=== PATIENT | male | born 1945 | race African-American/Black ===

== ENCOUNTER 2017-07-12 15:31 | Inpatient (IN) | payer MEDICARE, MEDICAID ==
[~2017-07-12] VITALS: Ht 172.7 cm; Wt 85.2 kg
[2017-07-12] MEDS ORDERED: SODIUM CHLOR 0.9% 1000 ML INJ 1,000 ML IV PRN (19:05)
[2017-07-12] MEDS ORDERED: SODIUM CHLOR 0.9% 1000 ML INJ 1,000 ML OTHER PRN ×2 (19:05)
[2017-07-12] MEDS ORDERED: MANNITOL 12.5 GM/50 ML VIAL IV PRN (19:15)
[2017-07-12] MEDS ORDERED: GELATIN 12 MM/7 MM FOAM TOP PRN (19:15)
[2017-07-12] MEDS ORDERED: HEPARIN SODIUM - IV 10,000 UNITS/10 ML VIAL IV FLUSH PRN (19:15)
[2017-07-12] MEDS ORDERED: NITROGLYCERIN 0.4 MG SL 25 TABS/BTL SL PRN (19:15)
[2017-07-12] MEDS ORDERED: ONDANSETRON HCL 4 MG/2 ML VIAL IV PUSH PRN (19:15)
[2017-07-12] MEDS ORDERED: cloNIDine HCL 0.1 MG TAB PO PRN (19:15)
[2017-07-12] MEDS ORDERED: SODIUM CHLORIDE 0.9% FLUSH 10 ML FLUSH IV FLUSH PRN (19:15)
[2017-07-12] MEDS ORDERED: MAGNESIUM HYDROXIDE SUSP 30 ML CUP PO PRN (20:00)
[2017-07-12] MEDS ORDERED: ALUMINUM/MAGNESIUM/SIMETH 30 ML CUP PO PRN (20:00)
[2017-07-12] MEDS ORDERED: REMOVE OLD NICOTINE PATCH T-DERMAL PRN (21:00)
[2017-07-12] MEDS: diphenhydrAMINE HCL 25 MG CAP PO PRN (23:25)
[2017-07-13] MEDS: RESP: ALBUTEROL 2.5 MG/IPRATROPIUM 0.5 MG NEB (PRN) NEB (00:18)
[2017-07-13] MEDS: ACETAMINOPHEN 325 MG TAB PO PRN (00:48)
[2017-07-13 06:26] VITALS: BP 144/82; PULSE 113; RESP 18; TEMP 97.7; O2SAT 88
[2017-07-13] MEDS ORDERED: NICOTINE 21 MG/24 HR PATCH T-DERMAL PRN (09:00)
[2017-07-13 09:59] LABS: BICARBONATE 21.1 MEQ/L (21.0-32.0); BLOOD UREA NITROGEN 68 MG/DL (7-18); CALCIUM 9.5 MG/DL (8.5-10.1); CHLORIDE 95 MEQ/L (98-107); GLOMERULAR FILTRATION RATE 6 ML/MIN (>89); GLUCOSE,RANDOM 119 MG/DL (74-106); SODIUM (NA) 132 MEQ/L (136-145)
[2017-07-13 10:00] LABS: CHOLESTEROL 67 MG/DL (120-200); TRIGLYCERIDES 50 MG/DL (42-150)
[2017-07-13 10:03] LABS: HDL CHOLESTEROL 31.8 MG/DL (40.0-60.0); LDL CHOLESTEROL 25 MG/DL (0-99)
[2017-07-13 10:38] LABS: CREATININE 10.37 MG/DL (0.60-1.30)
--- NOTE | 2017-07-13 10:50 | PD.CONS ---
HPI Service Nephrology Consult Requested By Dr. Barney Reason for Consult ESRD Primary Care Physician Unknown History of Present Illness Patient is a 71-year-old male with history of end-stage renal disease, hypertension, atrial fibrillation who had been admitted to psychiatry ros[facility] as he was noncompliant and did not wish to continue dialysis, missed his dialysis yesterday, he will be directed and transferred to [facility], patient used to follow with Dr. Hewitt. His hemodialysis is on Saturday, Saturday and Saturday. Review of Systems Constitutional: COMPLAINS OF: Fatigue Neurologic: COMPLAINS OF: Abnormal gait Psychiatric: COMPLAINS OF: Anxiety, Confusion, Mood changes, Depression, Agitation, Suicidal Ideation Past Family Social History Allergies: Coded Allergies: No Known Allergies (Verified Allergy, Unknown, 07/12/17) Past Medical History End-stage renal disease Bipolar disorder Hypertension Atrial fibrillation Noncompliance with dialysis COPD Past Surgical History AV fistula Active Ordered Medications Current Medications Medications (Trade) Dose Ordered Sig/Leandro Route Start Time Stop Time Status Last Admin Sodium Chloride 1,000 ml @ 0 mls/hr Q0M PRN OTHER 07/12/17 19:05 (Heparin Inj) 8,000 units UNSCH PRN IV FLUSH 07/12/17 19:15 Sodium Chloride 1,000 ml @ 200 mls/hr Q5H PRN IV 07/12/17 19:05 Sodium Chloride 1,000 ml @ 0 mls/hr Q0M PRN OTHER 07/12/17 19:05 (Mannitol Inj) 12.5 gm UNSCH PRN IV 07/12/17 19:15 (NS Flush) 5 ml UNSCH PRN IV FLUSH 07/12/17 19:15 (Heparin Inj) UNSCH PRN .XX 07/12/17 19:15 07/13/17 11:10 (Gentamicin Inj) 20 mg UNSCH PRN OTHER 07/12/17 19:15 07/13/17 11:10 (Zofran Inj) 4 mg UNSCH PRN IV PUSH 07/12/17 19:15 07/13/17 11:10 (Benadryl) 25 mg UNSCH PRN PO 07/12/17 19:15 07/13/17 11:10 (Nitrostat Sl) 0.4 mg UNSCH PRN SL 07/12/17 19:15 (Catapres) 0.1 mg UNSCH PRN PO 07/12/17 19:15 (Epogen Inj) 4,000 units UNSCH PRN IV PUSH 07/12/17 19:15 07/13/17 11:10 (Gelfoam 12 Mm/7 Mm Top) 1 foam UNSCH PRN TOP 07/12/17 19:15 (Tylenol) 650 mg Q4H PRN PO 07/12/17 20:00 07/13/17 00:48 (Milk Of Magnesia Liq) 30 ml DAILY PRN PO 07/12/17 20:00 (Mag-Al Plus Susp Liq) 30 ml Q6H PRN PO 07/12/17 20:00 (Habitrol 21 Mg Patch.24 Hr) 1 patch DAILY PRN T-DERMAL 07/13/17 09:00 Miscellaneous Information 1 HS PRN T-DERMAL 07/12/17 21:00 (Duoneb Neb) 1 ampule Q4HR NEB PRN NEB 07/12/17 23:45 07/13/17 00:18 Family History Noncontributory Social History Previous history of smoke Physical Exam Vital Signs Vital Signs Date Time Temp Pulse Resp B/P (MAP) Pulse Ox O2 Delivery O2 Flow Rate FiO2 07/13/17 06:26 97.7 113 18 144/82 (102) 88 Physical Exam GENERAL: Well-nourished, well-developed patient. SKIN: Warm and dry. HEAD: Normocephalic. EYES: No scleral icterus. No injection or drainage. NECK: Supple, trachea midline. No JVD or lymphadenopathy. CARDIOVASCULAR: Regular rate and rhythm without murmurs, gallops, or rubs. RESPIRATORY: Breath sounds equal bilaterally. No accessory muscle use. GASTROINTESTINAL: Abdomen soft, non-tender, nondistended. EXTREMITIES: No cyanosis, or edema. NEUROLOGICAL: Awake, patient has disorientated Laboratory Laboratory Tests Test 07/12/17 21:10 07/13/17 08:40 Hepatitis A IgM Antibody NONREACTIVE Hepatitis B Surface Antigen NONREACTIVE Hepatitis B Core IgM Antibody NONREACTIVE Hepatitis C IgG Antibody NONREACTIVE Blood Urea Nitrogen 68 Creatinine 10.37 Random Glucose 119 Calcium Level 9.5 Sodium Level 132 Potassium Level 5.7 Chloride Level 95 Carbon Dioxide Level 21.1 Anion Gap 16 Estimat Glomerular Filtration Rate 6 Triglycerides Level 50 Cholesterol Level 67 LDL Cholesterol 25 HDL Cholesterol 31.8 Cholesterol/HDL Ratio 2.10 Result Diagram: 07/13/17 0840 Assessment and Plan Problem List: (1) ESRD (end stage renal disease) on dialysis ICD Codes: N18.6 - End stage renal disease; Z99.2 - Dependence on renal dialysis Plan: Patient missed dialysis yesterday, thinking of stopping it, has Bipolar disorder, seen during dialysis HD progress noted 2 L off (2) Hypertension ICD Codes: I10 - Essential (primary) hypertension Plan: Continue to monitor (3) Adjustment disorder with depressed mood ICD Codes: F43.21 - Adjustment disorder with depressed mood Plan: Psychiatry is following Nic Pinto MD Jul 13, 2017 10:50
[2017-07-13] MEDS: HEPARIN SODIUM - IV 10,000 UNITS/10 ML VIAL PRN (11:10)
[2017-07-13] MEDS: GENTAMICIN SULFATE 20 MG/2 ML VIAL OTHER PRN (11:10)
[2017-07-13] MEDS: EPOETIN ALFA 10,000 UNITS/ML VIAL IV PUSH PRN (11:10)
[2017-07-13] MEDS: diphenhydrAMINE HCL 25 MG CAP PO PRN ×2 (11:10→20:27)
[2017-07-13] MEDS ORDERED: SEVEL800 PO ×2 (14:49→15:40)
--- NOTE | 2017-07-13 14:52 | HHI.HP ---
Provisional Diagnosis Admission Date Jul 12, 2017 at 17:41 [place] I. Adjustment disorder with depressed mood Certification of Person's Competence To Provide Express and Informed Consent I have personally examined Antoni Lagos , a person being served at [facility] on, Jul 13, 2017 14:44. Express and informed consent means consent voluntarily given in writing, by a competent person, after sufficient explanation and disclosure of the subject matter involved to enable the person to make a knowing and willful decision without any element of force, fraud, deceit, duress, or other form of constraint or coercion. This person is 18 years of age or older, is not now known to be incompetent to consent to treatment with a guardian advocate, and does not have a health care surrogate or proxy currently making medical treatment decisions. I have found this person to be one of the following: [xxx] Competent to provide express and informed consent, as defined above, for voluntary admission to this facility and is competent to provide express and informed consent for treatment. He/she has the consistent capacity to make well reasoned, willful, and knowing decisions concerning his or her medical or mental health treatment. The person fully and consistently understands the purpose of the admission for examination/placement and is fully capable of personally exercising all rights assured under [place] Incompetent to provide express and informed consent to voluntary admission, and this is incompetent to provide express and informed consent to treatment. The person must be transferred to involuntary status and a petition for a guardian advocate filed with the Circuit Court. [] Refusing to provide express and informed consent to voluntary admission but is competent to provide express and informed consent for treatment. The person must be discharged or transferred to involuntary status. Form shall be completed within 24 hours of a person's arrival at the receiving facility and filed in the clinical record of each person: 1. Admitted on a voluntary basis 2. Permitted to provide express and informed consent to his/her own treatment 3. Allowed to transfer from involuntary to voluntary status 4. Prior to permitting a person to consent to his or her own treatment after having been previously found incompetent to consent to treatment. History of Present Illness Capacity: Has Capacity HPI Patient is a 71-year-old week [place] man, , has 1 adult son, currently homeless, with no formal past psychiatric history, with a past medical history significant for end-stage renal disease on dialysis, COPD, A. fib, was brought in under Rodriguez act after patient refused to comply with critical treatment for dialysis and was transferred to the inpatient psychiatry for further evaluation and management. As per chart patient was admitted recently to medical service for volume overload and hyperkalemia which patient received hemodialysis and had poor change. Patient was seen earlier this morning but was transported to him hemodialysis but was later seen in the afternoon. Patient states prior to his admission he was transferred from [facility] where he had been admitted for more than 70 days states that yesterday he was to be dressed reported to an [facility]AY in [place] but was instead transferred to this hospital. Patient reports recently having had decreased sleep, energy and concentration along with feeling depressed due to having limited ability to engage in certain activities secondary to his chronic medical issues. Patient denies any suicide ideations at this time but admitting to stating that he was going to refuse dialysis because he was unable to have some freedoms such as going to be to take a walk when he wanted to. Patient at this time continues report feeling depressed but denying any suicide ideations, denying any auditory or visual hallucinations or delusions. Family psychiatric history: Denies Past psychiatric history: Denies previous psychiatric diagnoses, no prior psychiatric admissions, suicide attempt or self interest behavior. Patient denies history of abuse. Substance use history: Patient reports history of tobacco use years ago as well as alcohol use. Denies any current use of any substance. Past medical history: A. fib, end-stage renal disease on dialysis, COPD Allergies: NKDA Social history: , has 1 adult son living in [place], currently homeless , unemployed. Review of Systems Except as stated in HPI: all other systems reviewed are Neg Past Psych History Psychological trauma history Denies Violence risk - others (6 mos) Low Violence risk - self (6 mos) Elevated due to recent statements that he would refuse critical treated for dialysis. Substance Abuse History Drugs/Alcohol past 12 months Patient reports history of tobacco use years ago as well as alcohol use. Denies any current use of any substance. Past Family Social History Coded Allergies: No Known Allergies (Verified Allergy, Unknown, 07/12/17) Current Medications Medications (Trade) Dose Ordered Sig/Leandro Route Start Time Stop Time Status Last Admin Sodium Chloride 1,000 ml @ 0 mls/hr Q0M PRN OTHER 07/12/17 19:05 (Heparin Inj) 8,000 units UNSCH PRN IV FLUSH 07/12/17 19:15 Sodium Chloride 1,000 ml @ 200 mls/hr Q5H PRN IV 07/12/17 19:05 Sodium Chloride 1,000 ml @ 0 mls/hr Q0M PRN OTHER 07/12/17 19:05 (Mannitol Inj) 12.5 gm UNSCH PRN IV 07/12/17 19:15 (NS Flush) 5 ml UNSCH PRN IV FLUSH 07/12/17 19:15 (Heparin Inj) UNSCH PRN .XX 07/12/17 19:15 07/13/17 11:10 (Gentamicin Inj) 20 mg UNSCH PRN OTHER 07/12/17 19:15 07/13/17 11:10 (Zofran Inj) 4 mg UNSCH PRN IV PUSH 07/12/17 19:15 07/13/17 11:10 (Benadryl) 25 mg UNSCH PRN PO 07/12/17 19:15 07/13/17 11:10 (Nitrostat Sl) 0.4 mg UNSCH PRN SL 07/12/17 19:15 (Catapres) 0.1 mg UNSCH PRN PO 07/12/17 19:15 (Epogen Inj) 4,000 units UNSCH PRN IV PUSH 07/12/17 19:15 07/13/17 11:10 (Gelfoam 12 Mm/7 Mm Top) 1 foam UNSCH PRN TOP 07/12/17 19:15 (Tylenol) 650 mg Q4H PRN PO 07/12/17 20:00 07/13/17 00:48 (Milk Of Magnesia Liq) 30 ml DAILY PRN PO 07/12/17 20:00 (Mag-Al Plus Susp Liq) 30 ml Q6H PRN PO 07/12/17 20:00 (Habitrol 21 Mg Patch.24 Hr) 1 patch DAILY PRN T-DERMAL 07/13/17 09:00 Miscellaneous Information 1 HS PRN T-DERMAL 07/12/17 21:00 (Duoneb Neb) 1 ampule Q4HR NEB PRN NEB 07/12/17 23:45 07/13/17 00:18 Family Psych History Denies Social History , has 1 adult son living in [place], currently homeless, unemployed. Patient's Strengths (min. 2) Verbal and communicative Physical Exam Patient not noted to be acute distress, noted to have nasal cannula for O2, no gross motor abnormalities, no EPS or tremors, no psychomotor agitation or retardation. Vital Signs Vital Signs Date Time Temp Pulse Resp B/P (MAP) Pulse Ox O2 Delivery O2 Flow Rate FiO2 07/13/17 06:26 97.7 113 18 144/82 (102) 88 I/O 07/13/17 07/13/17 07/14/17 08:00 16:00 00:00 Intake Total 600 ml Output Total 2000 ml Balance 600 ml -2000 ml Lab Results Labs reviewed Test 07/12/17 21:10 07/13/17 08:40 Hepatitis A IgM Antibody NONREACTIVE Hepatitis B Surface Antigen NONREACTIVE Hepatitis B Core IgM Antibody NONREACTIVE Hepatitis C IgG Antibody NONREACTIVE Blood Urea Nitrogen 68 MG/DL Creatinine 10.37 MG/DL Random Glucose 119 MG/DL Calcium Level 9.5 MG/DL Sodium Level 132 MEQ/L Potassium Level 5.7 MEQ/L Chloride Level 95 MEQ/L Carbon Dioxide Level 21.1 MEQ/L Anion Gap 16 MEQ/L Estimat Glomerular Filtration Rate 6 ML/MIN Triglycerides Level 50 MG/DL Cholesterol Level 67 MG/DL LDL Cholesterol 25 MG/DL HDL Cholesterol 31.8 MG/DL Cholesterol/HDL Ratio 2.10 RATIO Mental Status Examination Appearance: Disheveled (Somewhat) Consciousness: Alert Orientation: Person, Place, Date/Time Motor Activity: Normal gait Speech: Unremarkable Language: Adequate Fund of Knowledge: Inadequate Attention and Concentration: Adequate Memory: Unremarkable Mood: Appropriate Affect: Sad Thought Process & Associations: Goal directed, Linear Thought Content: Appropriate Hallucination Type: None Delusion Type: None Suicidal Ideation: Yes (Denies today) Suicidal Plan: No Suicidal Intention: No Homicidal Ideation: No Homicidal Plan: No Homicidal Intention: No Insight: Fair Judgment: Impulsive Assessment & Plan Problem List: (1) Adjustment disorder with depressed mood ICD Codes: F43.21 - Adjustment disorder with depressed mood Assessment & Plan Estimated LOS: 3-5 days. Patient is a 71-year-old -[place] man with no formal past psychiatric history with a past medical history significant for end- stage renal disease on dialysis who was recently put under Rodriguez act due to refusing medical treatment for dialysis admitted to the inpatient psychiatry unit for further evaluation and management. Patient to start sertraline 25 mg 1 and 50 mg p.o. daily thereafter for depression. Continue rest of medications as required primary medical team as well as nephrology recommendations, input appreciated. Continue to monitor mood and behavior. Social work intervention for psychosocial assessment. Collateral formation pending. Discharge planning in progress. Discharge Planning To be determined Kurt Lange MD Jul 13, 2017 14:52
[2017-07-13] MEDS ORDERED: PILL SPLITTER OTHER PRN (15:00)
[2017-07-13] MEDS ORDERED: diphenhydrAMINE HCL 25 MG CAP PO PRN (15:00)
[2017-07-13] MEDS ORDERED: SERTRALINE HCL 50 MG TAB PO ONE (15:00)
[2017-07-13 15:05] VITALS: O2SAT 93
[2017-07-13] MEDS ORDERED: PSYLPOW4 PO (15:40)
[2017-07-13] MEDS ORDERED: LORA1TAB12 PO (15:40)
[2017-07-13] MEDS ORDERED: PREV30CA36 PO (15:40)
[2017-07-13] MEDS ORDERED: METO50TA PO (15:40)
[2017-07-13] MEDS ORDERED: isosorbide (15:40)
[2017-07-13] MEDS ORDERED: ASPI1CHW4 CHEW (15:40)
[2017-07-13] MEDS ORDERED: DIPH25CA PO (15:40)
[2017-07-13] MEDS ORDERED: CALC0.5C PO (15:40)
[2017-07-13] MEDS ORDERED: cloNIDine HCL 0.1 MG TAB PO PRN (16:00)
[2017-07-13] MEDS ORDERED: METOPROLOL TARTRATE 25 MG TAB PO ONE (16:00)
--- NOTE | 2017-07-13 16:00 | PD.CONS ---
HPI Service [facility] Hospitalists Consult Requested By Psychiatric services Reason for Consult Medical management Primary Care Physician Unknown Diagnoses: History of Present Illness This is a 71-year-old male with past medical history significant for atrial fibrillation with RVR, end-stage renal disease on hemodialysis Saturday, COPD, hypertension, CHF and prostate cancer currently homeless who was brought in under Rodriguez act after patient refused to comply with critical treatment for dialysis and was transferred to inpatient psychiatry. Hospitalist services have been consulted for medical management. Patient is a poor historian. Patient was recently admitted at [facility] for volume overload. Patient complains of increased depression and difficulty sleeping. He reports issues with chronic nonbloody vomiting occurring 0-3 times per day not associated with meals for the past 3-4 years. He states he's been worked up by several GI physicians and has had panendoscopy with no significant findings. He denies any fever or chills. He denies any lightheadedness, dizziness or vision changes. He denies any chest pain or shortness of breath. He reports chronic loose stools. He no longer makes urine. He was being followed by a service delivery supervisor but was lost to follow-up about a year and half ago. Patient states he does not use oxygen at home. Patient currently on oxygen to maintain appropriate O2 saturations. Review of Systems Except as stated in HPI: all other systems reviewed are Neg Past Family Social History Allergies: Coded Allergies: No Known Allergies (Verified Allergy, Unknown, 07/12/17) Past Medical History End-stage renal disease on hemodialysis Saturday Atrial fibrillation with RVR Hypertension CHF COPD History of prostate cancer Past Surgical History Tonsillectomy AV fistula Reported Medications DuoNeb's when necessary Xanax 0.25 mg 1 by mouth 3 times a day when necessary anxiety Aspirin 81 mg daily Calcitrol 1 mcg Saturday Isosorbide 30 mg by mouth daily Metoprolol tartrate 50 mg twice a day Renvela 800 mg 1 by mouth 3 times a day Sucralfate 1gm po QID Trazodone 150mg po qhs prn insomnia Active Ordered Medications Current Medications Medications (Trade) Dose Ordered Sig/Leandro Route Start Time Stop Time Status Last Admin Sodium Chloride 1,000 ml @ 0 mls/hr Q0M PRN OTHER 07/12/17 19:05 (Heparin Inj) 8,000 units UNSCH PRN IV FLUSH 07/12/17 19:15 Sodium Chloride 1,000 ml @ 200 mls/hr Q5H PRN IV 07/12/17 19:05 Sodium Chloride 1,000 ml @ 0 mls/hr Q0M PRN OTHER 07/12/17 19:05 (Mannitol Inj) 12.5 gm UNSCH PRN IV 07/12/17 19:15 (NS Flush) 5 ml UNSCH PRN IV FLUSH 07/12/17 19:15 (Heparin Inj) UNSCH PRN .XX 07/12/17 19:15 07/13/17 11:10 (Gentamicin Inj) 20 mg UNSCH PRN OTHER 07/12/17 19:15 07/13/17 11:10 (Zofran Inj) 4 mg UNSCH PRN IV PUSH 07/12/17 19:15 07/13/17 11:10 (Benadryl) 25 mg UNSCH PRN PO 07/12/17 19:15 07/13/17 11:10 (Nitrostat Sl) 0.4 mg UNSCH PRN SL 07/12/17 19:15 (Catapres) 0.1 mg UNSCH PRN PO 07/12/17 19:15 (Epogen Inj) 4,000 units UNSCH PRN IV PUSH 07/12/17 19:15 07/13/17 11:10 (Gelfoam 12 Mm/7 Mm Top) 1 foam UNSCH PRN TOP 07/12/17 19:15 (Tylenol) 650 mg Q4H PRN PO 07/12/17 20:00 07/13/17 00:48 (Milk Of Magnesia Liq) 30 ml DAILY PRN PO 07/12/17 20:00 (Mag-Al Plus Susp Liq) 30 ml Q6H PRN PO 07/12/17 20:00 (Habitrol 21 Mg Patch.24 Hr) 1 patch DAILY PRN T-DERMAL 07/13/17 09:00 Miscellaneous Information 1 HS PRN T-DERMAL 07/12/17 21:00 (Duoneb Neb) 1 ampule Q4HR NEB PRN NEB 07/12/17 23:45 07/13/17 00:18 (Zoloft) 50 mg DAILY PO 07/14/17 09:00 (Benadryl) 25 mg HS PRN PO 07/13/17 15:00 (Atarax) 25 mg Q6H PRN PO 07/13/17 15:00 (Pill Splitter) 1 ea UNSCH PRN OTHER 07/13/17 15:00 Family History Father, , prostate cancer Mother, , brain and lung cancer Social History Patient reports a history of tobacco use of one pack per day for 40 years but quit 2-1/2 years ago. He denies any alcohol consumption. He denies any illicit drug use. Physical Exam Vital Signs Vital Signs Date Time Temp Pulse Resp B/P (MAP) Pulse Ox O2 Delivery O2 Flow Rate FiO2 07/13/17 06:26 97.7 113 18 144/82 (102) 88 Physical Exam GENERAL: This is a well-nourished, well-developed male patient , in no apparent distress. Awake and alert. SKIN: No rashes, ecchymoses or lesions. Cool and dry. HEAD: Atraumatic. Normocephalic. No temporal or scalp tenderness. EYES: Pupils equal round and reactive. Extraocular motions intact. No scleral icterus. No injection or drainage. ENT: Nose without bleeding or purulent drainage. Throat without erythema, tonsillar hypertrophy or exudate. Uvula midline. Airway patent. NECK: Trachea midline. No lymphadenopathy. Supple, nontender, no meningeal signs. CARDIOVASCULAR: Irregular without murmurs, gallops, or rubs. RESPIRATORY: Clear to auscultation. Breath sounds equal bilaterally. No wheezes , rales, or rhonchi. GASTROINTESTINAL: Abdomen soft, non-tender, nondistended. No hepato-splenomegaly , or palpable masses. No guarding. MUSCULOSKELETAL: Extremities without clubbing, cyanosis, or edema. No joint tenderness, effusion, or edema noted. No calf tenderness. NEUROLOGICAL: Awake and alert. Cranial nerves II through XII grossly intact. Motor and sensory grossly within normal limits. No focal neurologic finding appreciated. Normal speech. Laboratory Laboratory Tests Test 07/12/17 21:10 07/13/17 08:40 Hepatitis A IgM Antibody NONREACTIVE Hepatitis B Surface Antigen NONREACTIVE Hepatitis B Core IgM Antibody NONREACTIVE Hepatitis C IgG Antibody NONREACTIVE Blood Urea Nitrogen 68 Creatinine 10.37 Random Glucose 119 Calcium Level 9.5 Sodium Level 132 Potassium Level 5.7 Chloride Level 95 Carbon Dioxide Level 21.1 Anion Gap 16 Estimat Glomerular Filtration Rate 6 Triglycerides Level 50 Cholesterol Level 67 LDL Cholesterol 25 HDL Cholesterol 31.8 Cholesterol/HDL Ratio 2.10 Result Diagram: 07/13/17 0840 Assessment and Plan Assessment and Plan 71-year-old male with past medical history significant for atrial fibrillation with RVR, end-stage renal disease on hemodialysis Saturday, COPD, hypertension, CHF and prostate cancer currently homeless who was brought in under Rodriguez act after patient refused to comply with critical treatment for dialysis and was transferred to inpatient psychiatry. Hospitalist services have been consulted for medical management. Depression Dialysis noncompliance -Management per psychiatric team ESRD on HD MWF Missed dialysis appointment yesterday -Nephrology following -Status post HD treatment today -Avoid nephrotoxic agents -Continue patient on home dose of Renvela Hyperkalemia -Management per nephrology Hyponatremia -mild -patient appears euvolemic. S/P HD earlier today -repeat BMP in am Atrial fibrillation with RVR -Continue on Metoprolol 50mg BID -[id number] score 3, patient on ASA only for anticoagulation. Recommend follow up with service delivery supervisor as an outpatient at discharge. -continue to monitor HR CHF, not decompensated -recent hospitalization for fluid overload -Appears euvolemic at this time, continue to monitor fluid status -continue on BB Hypertension -Resume patient's home dose of metoprolol 50 mg twice a day -Continue to monitor BP and adjust treatment accordingly -Clonidine prn with parameters COPD, not in acute exacerbation ?Chronic respiratory insufficiency -Patient does not use oxygen at home -O2 sats 88% on RA. Currently requires supplemental oxygen to maintain appropriate O2 saturations. -Obtain CXR -home oxygen walk test Hx of prostate cancer -chronic Chronic N/V -Patient reports extensive negative workup as an outpatient -Resume patient on previous dose of PPI and Carafate DVT prophylaxis -Patient is ambulatory on the unit Thank you very kindly for this consultation. We'll continue to follow along with you. Discussed Condition With patient, nursing staff, Cindi Kc Jul 13, 2017 16:00
[2017-07-13] MEDS: SUCRALFATE 1 GM/10 ML CUP PO SCH ×2 (16:37→20:27)
[2017-07-13] MEDS: SEVELAMER CARBONATE 800 MG TAB PO SCH (16:37)
--- NOTE | 2017-07-13 16:59 | RADRPT ---
EXAM DATE/TIME: 07/13/2017 16:01 [place] COMPARISON: No previous studies available for comparison. INDICATIONS : Shortness of breath. Cough. MEDICAL HISTORY : Chronic obstructive pulmonary disease. Congestive heart failure. Hypertension. SURGICAL HISTORY : Dialysis catheter. ENCOUNTER: Subsequent ACUITY: >1 year PAIN SCORE: 0/10 LOCATION: Bilateral chest FINDINGS: Dialysis catheter in good position. Moderate congestive failure. Osseous structures are intact. No pleural effusion. No consolidation. CONCLUSION: Moderate congestive failure Jay Redd MD FACR on July 13, 2017 at 16:54 Board Certified Radiologist. This report was verified electronically.
[2017-07-13] MEDS: hydrOXYzine HCL 25 MG TAB PO PRN (17:12)
[2017-07-13 18:00] VITALS: BP 128/75; PULSE 116; RESP 18; TEMP 97.6; O2SAT 81
--- NOTE | 2017-07-13 19:15 | EKG ---
Date Performed: 07/13/2017 Time Performed: 10:07:15 PTAGE: 71 years EKG: ATRIAL FIBRILLATION WITH RAPID VENTRICULAR RESPONSE LEFT ANTERIOR FASCICULAR BLOCK INFERIOR MYOCARDIAL INFARCTION , PROBABLY OLD ABNORMAL ECG NO PREVIOUS TRACING DOCTOR: Miguel Bartlett Interpretating Date/Time 07/13/2017 19:13:16
[2017-07-13] MEDS: METOPROLOL TARTRATE 50 MG TAB PO SCH (20:27)
[2017-07-14 05:53] VITALS: BP 128/78; PULSE 102; RESP 18; TEMP 97.8; O2SAT 88
[2017-07-14] MEDS: SEVELAMER CARBONATE 800 MG TAB PO SCH ×3 (08:26→17:48)
[2017-07-14] MEDS: SUCRALFATE 1 GM/10 ML CUP PO SCH ×4 (08:26→21:15)
[2017-07-14] MEDS: ASPIRIN 81 MG CHEW TAB CHEW SCH (08:26)
[2017-07-14] MEDS: LANSOPRAZOLE SOLUTAB 30 MG TAB PO SCH (08:27)
[2017-07-14] MEDS: METOPROLOL TARTRATE 50 MG TAB PO SCH ×2 (08:27→21:15)
[2017-07-14] MEDS: SERTRALINE HCL 50 MG TAB PO SCH (08:27)
[2017-07-14] MEDS: ISOSORBIDE DINITRATE 10 MG TAB PO SCH (08:27)
[2017-07-14] MEDS: ACETAMINOPHEN 325 MG TAB PO PRN ×4 (08:27→21:16)
--- NOTE | 2017-07-14 08:55 | HHI.PR ---
Subjective Remarks Patient seen and examined this morning. Temperature 97.8, pulse 102, respiratory rate 18, blood pressure 128/78, pulse ox 88 on 3 L nasal cannula. Patient reports having multiple bowel movements. Agreed to get a stool study at this time to rule out C. difficile. Patient reports some mild nausea. Denies any chest pain or worsening shortness of breath. He reports that he is willing to get dialysis at this time. Objective Vitals Vital Signs Date Time Temp Pulse Resp B/P (MAP) Pulse Ox O2 Delivery O2 Flow Rate FiO2 07/14/17 05:53 97.8 102 18 128/78 (95) 88 07/13/17 18:07 3.00 07/13/17 18:00 97.6 116 18 128/75 (92) 81 07/13/17 15:05 93 21 I/O 07/13/17 07/13/17 07/13/17 07/14/17 07/14/17 07/14/17 07:00 15:00 23:00 07:00 15:00 23:00 Intake Total 1440 ml 957 ml 60 ml Output Total 2000 ml Balance -560 ml 957 ml 60 ml Intake Oral 1440 ml 957 ml 60 ml Output Hemodialysis 2000 ml # Voids 1 2 # Bowel Movements 3 Result Diagram: 07/13/17 0840 Objective Remarks GEN: Well-developed, well-nourished patient. No acute distress. CV: Irregularly irregular LUNGS: Clear to auscultation bilaterally. Normal respiratory effort. No wheezes , rales, rhonchi. GI: Soft, nontender, nondistended. No palpable masses. Bowel sounds WNL. EXT: No edema. Left arm with port NEURO/PSYCH: Afocal. Awake, alert, and oriented x3. Appropriate insight and judgment. Medications and IVs Current Medications Medications (Trade) Dose Ordered Sig/Leandro Route Start Time Stop Time Status Last Admin Sodium Chloride 1,000 ml @ 0 mls/hr Q0M PRN OTHER 07/12/17 19:05 (Heparin Inj) 8,000 units UNSCH PRN IV FLUSH 07/12/17 19:15 Sodium Chloride 1,000 ml @ 200 mls/hr Q5H PRN IV 07/12/17 19:05 Sodium Chloride 1,000 ml @ 0 mls/hr Q0M PRN OTHER 07/12/17 19:05 (Mannitol Inj) 12.5 gm UNSCH PRN IV 07/12/17 19:15 (NS Flush) 5 ml UNSCH PRN IV FLUSH 07/12/17 19:15 (Heparin Inj) UNSCH PRN .XX 07/12/17 19:15 07/13/17 11:10 (Gentamicin Inj) 20 mg UNSCH PRN OTHER 07/12/17 19:15 07/13/17 11:10 (Zofran Inj) 4 mg UNSCH PRN IV PUSH 07/12/17 19:15 07/13/17 11:10 (Benadryl) 25 mg UNSCH PRN PO 07/12/17 19:15 07/13/17 20:27 (Nitrostat Sl) 0.4 mg UNSCH PRN SL 07/12/17 19:15 (Catapres) 0.1 mg UNSCH PRN PO 07/12/17 19:15 (Epogen Inj) 4,000 units UNSCH PRN IV PUSH 07/12/17 19:15 07/13/17 11:10 (Gelfoam 12 Mm/7 Mm Top) 1 foam UNSCH PRN TOP 07/12/17 19:15 (Tylenol) 650 mg Q4H PRN PO 07/12/17 20:00 07/14/17 08:27 (Milk Of Magnesia Liq) 30 ml DAILY PRN PO 07/12/17 20:00 (Mag-Al Plus Susp Liq) 30 ml Q6H PRN PO 07/12/17 20:00 (Habitrol 21 Mg Patch.24 Hr) 1 patch DAILY PRN T-DERMAL 07/13/17 09:00 Miscellaneous Information 1 HS PRN T-DERMAL 07/12/17 21:00 (Duoneb Neb) 1 ampule Q4HR NEB PRN NEB 07/12/17 23:45 07/13/17 00:18 (Zoloft) 50 mg DAILY PO 07/14/17 09:00 07/14/17 08:27 (Benadryl) 25 mg HS PRN PO 07/13/17 15:00 (Atarax) 25 mg Q6H PRN PO 07/13/17 15:00 07/13/17 17:12 (Pill Splitter) 1 ea UNSCH PRN OTHER 07/13/17 15:00 (Aspirin Chew) 81 mg DAILY CHEW 07/14/17 09:00 07/14/17 08:26 (Lopressor) 50 mg BID PO 07/13/17 21:00 07/14/17 08:27 (Renvela) 800 mg TID PO 07/13/17 18:00 07/14/17 08:26 (Prevacid Odt) 30 mg DAILY PO 07/14/17 09:00 07/14/17 08:27 (Carafate Liq) 1 gm ACHS PO 07/13/17 17:00 07/14/17 08:26 (Isordil) 30 mg DAILY PO 07/14/17 09:00 07/14/17 08:27 (Catapres) 0.1 mg Q6H PRN PO 07/13/17 16:00 (Rocaltrol) 1 mcg MoWeFr PO 07/15/17 17:00 A/P Problem List: (1) Adjustment disorder with depressed mood ICD Code: F43.21 - Adjustment disorder with depressed mood (2) ESRD (end stage renal disease) on dialysis ICD Code: N18.6 - End stage renal disease; Z99.2 - Dependence on renal dialysis (3) Hypertension ICD Code: I10 - Essential (primary) hypertension Assessment and Plan 71-year-old male with past medical history significant for atrial fibrillation with RVR, end-stage renal disease on hemodialysis Saturday, COPD, hypertension, CHF and prostate cancer currently homeless who was brought in under Rodriguez act after patient refused to comply with critical treatment for dialysis and was transferred to inpatient psychiatry. Hospitalist services have been consulted for medical management. Depression Dialysis noncompliance -Management per psychiatric team ESRD on HD MWF Missed dialysis appointment yesterday -Nephrology following -Status post HD treatment today -Avoid nephrotoxic agents -Continue patient on home dose of Renvela Hyperkalemia -Management per nephrology Hyponatremia -mild -patient appears euvolemic. -repeat BMP in am: Pending Atrial fibrillation with RVR -Continue on Metoprolol 50mg BID -[id number] score 3, patient on ASA only for anticoagulation. Recommend follow up with lamps tester and inspector as an outpatient at discharge. -continue to monitor HR CHF, not decompensated -recent hospitalization for fluid overload -Appears euvolemic at this time, continue to monitor fluid status -continue on BB Hypertension -Resume patient's home dose of metoprolol 50 mg twice a day -Continue to monitor BP and adjust treatment accordingly -Clonidine prn with parameters COPD, not in acute exacerbation ?Chronic respiratory insufficiency -Patient does not use oxygen at home -O2 sats 88% on RA. Currently requires supplemental oxygen to maintain appropriate O2 saturations. -Chest x-ray showing moderate congestive failure. Image examined by me -We will monitor with dialysis for improvement having taking off some fluids. -home oxygen walk test Hx of prostate cancer -chronic Chronic N/V -Patient reports extensive negative workup as an outpatient -Resume patient on previous dose of PPI and Carafate DVT prophylaxis -Patient is ambulatory on the unit Discharge Planning Continuing current medical workup and psychiatric evaluation Jabier Sinha MD, R3 Jul 14, 2017 08:55
[2017-07-14] MEDS ORDERED: ZOLPIDEM TARTRATE 5 MG TAB PO PRN (09:00)
--- NOTE | 2017-07-14 10:22 | HHI.PYPN ---
Subjective Remarks Patient is here for follow, chart reviewed. Discussion wishes to reported patient has disturbed sleep last evening. Patient was seen sitting hospital bed , cooperative. Patient stated he is feeling "anxious" stating that he was be discharged because he wants his freedom. Patient did not have any concrete plan for discharge stated he was considering going back to [place] live with his son although he has not contacted him for sometime stating that his son had kicked him out previously. Patient also was considering going to an assisted living facility in [place] is unrealistic into the likelihood of him accepted without assistance from treatment team. Review of Systems Except as stated in HPI: all other systems reviewed are Neg Mental Status Examination Appearance: Disheveled (Somewhat) Consciousness: Alert Orientation: Person, Place, Date/Time Motor Activity: Normal gait Speech: Unremarkable Language: Adequate Fund of Knowledge: Inadequate Attention and Concentration: Adequate Memory: Unremarkable Mood: Appropriate Affect: Sad Thought Process & Associations: Goal directed, Linear Thought Content: Appropriate Hallucination Type: None Delusion Type: None Suicidal Ideation: Yes (Denies today) Suicidal Plan: No Suicidal Intention: No Homicidal Ideation: No Homicidal Plan: No Homicidal Intention: No Insight: Fair Judgment: Impulsive Results Labs Test 07/13/17 21:27 B-Type Natriuretic Peptide 1548 PG/ML Vitals/IOs Vital Signs Date Time Temp Pulse Resp B/P (MAP) Pulse Ox O2 Delivery O2 Flow Rate FiO2 07/14/17 05:53 97.8 102 18 128/78 (95) 88 07/13/17 18:07 3.00 07/13/17 15:05 21 Intake and Output 07/14/17 07/14/17 07/15/17 08:00 16:00 00:00 Intake Total 60 ml Balance 60 ml Assessment & Plan Problem List: (1) Adjustment disorder with depressed mood ICD Codes: F43.21 - Adjustment disorder with depressed mood Assessment & Plan Patient at this time with limited insight into the reality of his homelessness is discharged without acute distress plan. Patient continues endorse feeling depressed but denying suicide ideations. Petition for involuntary hospitalization will be started and there is concern the patient being unable to care for self and discharged as well as this recent statements of wanting to stop dialysis. Continue current treatment. Continue monitor with behavior. Discharge planning in progress. Justification for Cont. Inpt. At risk for further decompensation if at lower level of care Kurt Lange MD Jul 14, 2017 10:22
[2017-07-14 11:42] LABS: HEMOGLOBIN A1C 5.4 % (4.3-6.0)
[2017-07-14] MEDS: hydrOXYzine HCL 25 MG TAB PO PRN (12:57)
--- NOTE | 2017-07-14 13:36 | HHI.NPPN ---
Subjective History of Present Illness 71 year old ESRD, Hypertension, non compliance, Rodriguez acted Interval History wants to continue HD Additional Remarks doing better Objective Data Data 07/14/17 07/15/17 19:00 07:00 Intake Total 240 ml Balance 240 ml Intake Oral 240 ml Vital Signs Date Time Temp Pulse Resp B/P (MAP) Pulse Ox O2 Delivery O2 Flow Rate FiO2 07/14/17 12:24 21 07/14/17 05:53 97.8 102 18 128/78 (95) 88 07/13/17 18:07 3.00 07/13/17 18:00 97.6 116 18 128/75 (92) 81 07/13/17 15:05 93 21 -: 07/13/17 0840 Physical Exam General Appearance: Well Developed, Well Nourished Neck Neck Exam: Neck Supple Pulmonary Resp Exam: Clear Bilaterally, Breath Sounds Equal Cardiology CV Exam: Regular, Normal Sinus Rhythm Gastrointestinal/Abdomen GI Exam: Soft, Bowel Sounds Present Extremeties Extremities Exam: No Edema Neurologic Neuro Exam: Alert, Awake Assessment/Plan Problem List: (1) ESRD (end stage renal disease) on dialysis ICD Codes: N18.6 - End stage renal disease; Z99.2 - Dependence on renal dialysis Plan: Patient had HD yesterday now wants to continue HD used to follow with Dr. Belle (2) Hypertension ICD Codes: I10 - Essential (primary) hypertension Plan: Continue to monitor (3) Adjustment disorder with depressed mood ICD Codes: F43.21 - Adjustment disorder with depressed mood Plan: Psychiatry is following Nic Pinto MD Jul 14, 2017 13:36
[2017-07-14 17:04] LABS: ALBUMIN 4.1 GM/DL (3.4-5.0); ALKALINE PHOSPHATASE 231 U/L (45-117); ALT (GPT) 14 U/L (12-78); AST (GOT) 20 U/L (15-37); BICARBONATE 24.3 MEQ/L (21.0-32.0); CALCIUM 9.4 MG/DL (8.5-10.1); CHLORIDE 96 MEQ/L (98-107); GLOMERULAR FILTRATION RATE 7 ML/MIN (>89); GLUCOSE,RANDOM 108 MG/DL (74-106); MAGNESIUM 2.3 MG/DL (1.5-2.5); PHOSPHORUS 3.6 MG/DL (2.5-4.9); SODIUM (NA) 133 MEQ/L (136-145); TOTAL BILIRUBIN ADULT 0.4 MG/DL (0.2-1.0); TOTAL PROTEIN 7.2 GM/DL (6.4-8.2)
[2017-07-14 17:05] LABS: BLOOD UREA NITROGEN 54 MG/DL (7-18)
[2017-07-14 18:21] VITALS: BP 113/67; PULSE 92; RESP 17; TEMP 98.2; O2SAT 88
[2017-07-15 05:26] VITALS: BP 131/73; PULSE 102; RESP 16; TEMP 98.1; O2SAT 83
[2017-07-15 05:54] VITALS: O2SAT 90
[2017-07-15] MEDS: RESP: ALBUTEROL 2.5 MG/IPRATROPIUM 0.5 MG NEB (PRN) NEB (05:54)
[2017-07-15 06:16] VITALS: O2SAT 91
[2017-07-15 08:53] LABS: HEMATOCRIT 37.7 % (39.0-51.0); HEMOGLOBIN 12.3 GM/DL (13.0-17.0); MEAN CELL VOLUME 85.5 FL (80.0-100.0); MEAN CORPUSCULAR HEMOGLOBIN 27.9 PG (27.0-34.0); MEAN CORPUSCULAR HGB CONC 32.6 % (32.0-36.0); MEAN PLATELET VOLUME 8.2 FL (7.0-11.0); PLATELET COUNT 280 TH/MM3 (150-450); RED BLOOD COUNT 4.41 MIL/MM3 (4.50-5.90); RED CELL DISTRIBUTION WIDTH 18.2 % (11.6-17.2); WHITE BLOOD COUNT 16.9 TH/MM3 (4.0-11.0)
[2017-07-15 09:20] LABS: ALBUMIN 4.1 GM/DL (3.4-5.0); ALKALINE PHOSPHATASE 223 U/L (45-117); ALT (GPT) 11 U/L (12-78); AST (GOT) 15 U/L (15-37); BICARBONATE 24.6 MEQ/L (21.0-32.0); BLOOD UREA NITROGEN 64 MG/DL (7-18); CALCIUM 9.8 MG/DL (8.5-10.1); CHLORIDE 94 MEQ/L (98-107); GLOMERULAR FILTRATION RATE 6 ML/MIN (>89); GLUCOSE,RANDOM 89 MG/DL (74-106); SODIUM (NA) 132 MEQ/L (136-145); TOTAL BILIRUBIN ADULT 0.4 MG/DL (0.2-1.0); TOTAL PROTEIN 7.3 GM/DL (6.4-8.2)
[2017-07-15 09:41] LABS: CREATININE 10.78 MG/DL (0.60-1.30)
[2017-07-15] MEDS: SEVELAMER CARBONATE 800 MG TAB PO SCH ×3 (10:00→17:56)
[2017-07-15] MEDS: LANSOPRAZOLE SOLUTAB 30 MG TAB PO SCH (10:00)
[2017-07-15] MEDS: ASPIRIN 81 MG CHEW TAB CHEW SCH (10:00)
[2017-07-15] MEDS: SUCRALFATE 1 GM/10 ML CUP PO SCH ×4 (10:00→21:07)
[2017-07-15] MEDS: SERTRALINE HCL 50 MG TAB PO SCH (10:00)
[2017-07-15] MEDS: ISOSORBIDE DINITRATE 10 MG TAB PO SCH (10:00)
[2017-07-15] MEDS: METOPROLOL TARTRATE 50 MG TAB PO SCH ×2 (10:00→21:07)
--- NOTE | 2017-07-15 10:21 | HHI.PR ---
Subjective Remarks has been on dialysis 8 yrs, drive by himself sometimes late for apt but the center would call him someone took his words out of context, per him stated he was admitted at [facility] - Dr Hewitt is his nephrology awaiting for placement- ususally rents his own place does vomit every day - years; at least once a day diarrhea "almost every day"- years, about 1-2 tines a day has hard time going to sleep- wants one medicine was hospitalized at [facility] for 72 days, awaiting placement stated he had pneumonia twice Objective Vital Signs Date Time Temp Pulse Resp B/P (MAP) Pulse Ox O2 Delivery O2 Flow Rate FiO2 07/15/17 06:16 91 07/15/17 05:54 90 Nasal Cannula 2.00 07/15/17 05:26 98.1 102 16 131/73 (92) 83 07/14/17 18:21 98.2 92 17 113/67 (82) 88 07/14/17 12:24 21 I/O 07/14/17 07/14/17 07/14/17 07/15/17 07/15/17 07/15/17 07:00 15:00 23:00 07:00 15:00 23:00 Intake Total 60 ml 240 ml 840 ml 360 ml Balance 60 ml 240 ml 840 ml 360 ml Intake Oral 60 ml 240 ml 840 ml 360 ml # Voids 2 8 # Bowel Movements 3 Result Diagram: 07/15/17 0728 07/15/17 0728 A/P Assessment and Plan Impression: adjustment disorder/ depression . Rodriguez Act Status. Management per psychiatry. Mild hyponatremia. Hydrate orally. Hyperkalemia. Resolved with dialysis. ESRD on HD HTN hx of AFib recent hospitalization at [facility] for 72 days prior to transfer here COPD CHF/fluid overload. Resolved with dialysis. Prostate cancer history Plan: Patient received dialysis on Thursday, July 13, 2017. Hyperkalemia is now resolved. Patient will be going for dialysis today. Continue beta blockers for A. fib. On aspirin for anticoagulation. Patient is at risk for falls because of his unsteady gait, baseline dementia, homelessness. Would need to address anticoagulation once patient is under controlled setting once he is was satting in assisted living facility/[facility] with a a p manager. Patient's chest x-ray on July 13, 2017 revealing pulmonary edema. However his lung exams is mostly decreased air entry rather than elysia coarse rales. He will be stable to wait on dialysis today. Home oxygen evaluation. Partly he is requiring oxygen because of this pulmonary edema from fluid overload in a dialysis patient. Discharge Planning Per psychiatry. Awaiting on placement. Jerica Sarmiento MD Jul 15, 2017 10:21
[2017-07-15] MEDS ORDERED: TEMAZEPAM 15 MG CAP PO PRN (10:30)
[2017-07-15] MEDS ORDERED: diphenhydrAMINE HCL 25 MG CAP PO PRN (10:30)
[2017-07-15] MEDS: hydrOXYzine HCL 25 MG TAB PO PRN (10:37)
--- NOTE | 2017-07-15 10:59 | HHI.HCPN ---
Palliative care consulted to assist with goals of care for Mr. Lagos. Mr. Lagos admitted under the Rodriguez Act. In review of notes he is awaiting second opinion regarding Rodriguez Act status. If he is found to be appropriate for involuntary status and lack incapacity, Mr. Lagos would be unable to make medical decisions for himself. In review of notes, Mr. Lagos reportedly refused to continue with dialysis but is now agreeable. If found to lack capacity, he is unable to refuse treatment. In review of notes, Mr. Lagos has a son Antoni Lagos JR ([phone]), an ex- Tona ([phone]), and a friend Patrick Georges Mills ([phone]). Attempted to contact son, no answer and unable to leave a message. Spoke with friend Patrick. He states Mr. Lagos is , has 1 son, their relationship has been estranged. They lived together for a period of time after a hospitalization Mr. Lagos has but the relationship didn't work out and his son put him out. There may be some other family members but Patrick has limited information. Per Patrick, he and Mr. Lagos have known each other for many years. Mr. Lagos has been in numerous hospitals. He states Mr. Lagos has come to terms with the fact he is not going to get new kidneys and feels he is tired of dialysis, but does not necessarily want to stop treatment. He feels Mr. Lagos is currently focused on maximizing his medical treatment for other medical issues going on with him but is looking for quality of life. Patrick states Mr. Lagos' independence is important to him and that plays a factor in determining placement after the hospitalization. Per [place] Statutes, in absence of written advanced directives, health care proxy decision making would fall to patient's son. If capacitated, living will and health care surrogate should be addressed and paperwork filled out given dynamics of family unit to ensure Mr. Lagos wishes are honored. Palliative care full consultation to follow. Sindi Monge, HEALTH SYSTEMS ANALYST Jul 15, 2017 10:59
[2017-07-15] MEDS ORDERED: SODIUM POLYSTYRENE SULFONATE SUSP 15 GM/60 ML CUP PO ONE (11:00)
[2017-07-15] MEDS ORDERED: FUROSEMIDE 40 MG/4 ML VIAL IV PUSH ONE (11:00)
--- NOTE | 2017-07-15 12:17 | HHI.PYPN ---
Subjective Remarks The patient is seen today for psychiatric reevaluation. Patient is calm, cooperative, but anxious and breathing difficulties. His conversation is intermittent due to breathing difficulties. Patient reports that he has been feeling depressed, because he does not have a place to live. He says that he is now homeless, and he wants to be discharged to a intermediate once he is ready. Patient reports that he wants to be free, he does not want to be in the hospital more than he needs to, but he understands that he may take some time to find housing. He denies suicidal and homicidal ideation, he denies visual and auditory hallucination at this moment. Patient seems to be in a little bit of distress, but he has not been agitated, no aggressive behavior, he has been compliant with his medications, no significant side effects. Patient does report difficulty sleeping at night, he will have to be medicated with a medication to help him to sleep. Review of Systems Constitutional: DENIES: Diaphoretic episodes, Fatigue, Fever, Weight gain, Weight loss, Chills, Dizziness, Change in appetite, Night Sweats Eyes: DENIES: Blurred vision, Diplopia, Eye inflammation, Eye pain, Vision loss , Photosensitivity, Double Vision Ears, nose, mouth, throat: DENIES: Tinnitus, Hearing loss, Vertigo, Nasal discharge, Oral lesions, Throat pain, Hoarseness, Ear Pain, Running Nose, Epistaxis, Sinus Pain, Toothache, Odynophagia Respiratory: COMPLAINS OF: Apneas, Shortness of breath Cardiovascular: DENIES: Chest pain, Palpitations, Syncope, Dyspnea on Exertion , PND, Lower Extremity Edema, Orthopnea, Claudication Gastrointestinal: DENIES: Abdominal pain, Black stools, Bloody stools, Constipation, Diarrhea, Nausea, Vomiting, Difficulty Swallowing, Anorexia Genitourinary: DENIES: Sexual dysfunction, Urinary frequency, Urinary incontinence, Urgency, Hematuria, Dysuria, Nocturia, Penile Discharge, Testicular Pain, Testicular Swelling Musculoskeletal: DENIES: Joint pain, Muscle aches, Stiffness, Joint Swelling, Back pain, Neck pain Integumentary: DENIES: Abnormal pigmentation, Nail changes, Pruritus, Rash Hematologic/lymphatic: DENIES: Bruising, Lymphadenopathy Immunologic/allergic: DENIES: Eczema, Urticaria Neurologic: DENIES: Abnormal gait, Headache, Localized weakness, Paresthesias, Seizures, Speech Problems, Tremor, Poor Balance Psychiatric: DENIES: Anxiety, Confusion, Mood changes, Depression, Hallucinations, Agitation, Suicidal Ideation, Homicidal Ideation, Delusions Mental Status Examination Appearance: Disheveled (Somewhat) Consciousness: Alert Orientation: x4 Motor Activity: Normal gait Speech: Unremarkable Language: Adequate Fund of Knowledge: Inadequate Attention and Concentration: Adequate Memory: Unremarkable Mood: Appropriate Affect: Sad Thought Process & Associations: Goal directed, Linear Thought Content: Appropriate Hallucination Type: None Delusion Type: None Suicidal Ideation: No Suicidal Plan: No Suicidal Intention: No Homicidal Ideation: No Homicidal Plan: No Homicidal Intention: No Insight: Fair Judgment: Impulsive Results Labs Test 07/14/17 15:55 07/15/17 07:28 Blood Urea Nitrogen 54 MG/DL 64 MG/DL Creatinine 9.40 MG/DL 10.78 MG/DL Random Glucose 108 MG/DL 89 MG/DL Total Protein 7.2 GM/DL 7.3 GM/DL Albumin 4.1 GM/DL 4.1 GM/DL Calcium Level 9.4 MG/DL 9.8 MG/DL Phosphorus Level 3.6 MG/DL Magnesium Level 2.3 MG/DL Alkaline Phosphatase 231 U/L 223 U/L Aspartate Amino Transf (AST/SGOT) 20 U/L 15 U/L Alanine Aminotransferase (ALT/SGPT) 14 U/L 11 U/L Total Bilirubin 0.4 MG/DL 0.4 MG/DL Sodium Level 133 MEQ/L 132 MEQ/L Potassium Level 5.8 MEQ/L 5.1 MEQ/L Chloride Level 96 MEQ/L 94 MEQ/L Carbon Dioxide Level 24.3 MEQ/L 24.6 MEQ/L Anion Gap 13 MEQ/L 13 MEQ/L Estimat Glomerular Filtration Rate 7 ML/MIN 6 ML/MIN White Blood Count 16.9 TH/MM3 Red Blood Count 4.41 MIL/MM3 Hemoglobin 12.3 GM/DL Hematocrit 37.7 % Mean Corpuscular Volume 85.5 FL Mean Corpuscular Hemoglobin 27.9 PG Mean Corpuscular Hemoglobin Concent 32.6 % Red Cell Distribution Width 18.2 % Platelet Count 280 TH/MM3 Mean Platelet Volume 8.2 FL Vitals/IOs Vital Signs Date Time Temp Pulse Resp B/P (MAP) Pulse Ox O2 Delivery O2 Flow Rate FiO2 07/15/17 06:16 91 07/15/17 05:54 Nasal Cannula 2.00 07/15/17 05:26 98.1 102 16 131/73 (92) 07/14/17 12:24 21 Intake and Output 07/15/17 07/15/17 07/16/17 08:00 16:00 00:00 Intake Total 600 ml Balance 600 ml Assessment & Plan Problem List: (1) Adjustment disorder with depressed mood ICD Codes: F43.21 - Adjustment disorder with depressed mood Assessment & Plan: Patient seems to be distressed due to shortness of breath, he reports sadness and poor energy in the context of homelessness and medical decompensation. He denies suicidal or homicidal ideation, he denies visual and auditory hallucinations, the patient is future oriented, oriented 3. I will start Seroquel 25 mg at bedtime to help with mood and insomnia. The patient will sign voluntary admission. I will communicate with medical team the convenience of transferring this patient to the medical floor Assessment & Plan Estimated LOS: days Justification for Cont. Inpt. Patient displayed symptomatology of depression. Sarwat Meng MD Jul 15, 2017 12:17
[2017-07-15] MEDS: diphenhydrAMINE HCL 25 MG CAP PO PRN (13:10)
[2017-07-15] MEDS: HEPARIN SODIUM - IV 10,000 UNITS/10 ML VIAL PRN (14:57)
[2017-07-15] MEDS: EPOETIN ALFA 10,000 UNITS/ML VIAL IV PUSH PRN (14:58)
[2017-07-15] MEDS: GENTAMICIN SULFATE 20 MG/2 ML VIAL OTHER PRN (14:58)
[2017-07-15] MEDS ORDERED: LORazepam 2 MG/ML VIAL IV PUSH ONE (15:00)
--- NOTE | 2017-07-15 15:52 | HHI.NPPN ---
Subjective History of Present Illness 71 year old ESRD, Hypertension, non compliance, Rodriguez acted Additional Remarks doing better Objective Data Data 07/15/17 07/16/17 19:00 07:00 Intake Total 1200 ml Balance 1200 ml Intake Oral 1200 ml Vital Signs Date Time Temp Pulse Resp B/P (MAP) Pulse Ox O2 Delivery O2 Flow Rate FiO2 07/15/17 06:16 91 07/15/17 05:54 90 Nasal Cannula 2.00 07/15/17 05:26 98.1 102 16 131/73 (92) 83 07/14/17 18:21 98.2 92 17 113/67 (82) 88 -: 07/15/17 0728 07/15/17 0728 Physical Exam General Appearance: Well Developed, Well Nourished Neck Neck Exam: Neck Supple Pulmonary Resp Exam: Clear Bilaterally, Breath Sounds Equal Cardiology CV Exam: Regular, Normal Sinus Rhythm Gastrointestinal/Abdomen GI Exam: Soft, Bowel Sounds Present Extremeties Extremities Exam: No Edema Neurologic Neuro Exam: Alert, Awake Assessment/Plan Problem List: (1) ESRD (end stage renal disease) on dialysis ICD Codes: N18.6 - End stage renal disease; Z99.2 - Dependence on renal dialysis Plan: Patient had HD Saturday now wants to continue HD now on HD agitated, given Ativan 1mg IV sleeping now UF 2.5 L seen during dialysis (2) Hypertension ICD Codes: I10 - Essential (primary) hypertension Plan: Continue to monitor (3) Adjustment disorder with depressed mood ICD Codes: F43.21 - Adjustment disorder with depressed mood Plan: Psychiatry is following Nic Pinto MD Jul 15, 2017 15:52
--- NOTE | 2017-07-15 16:13 | PD.CONS ---
Consult Service Palliative Care Consult Requested By Dr Sinha Primary Care Physician Unknown Reason for Consultation a. To assist with evaluation and management of symptoms including: confusion ,depression b. To assist medical decision maker(s) with: better understanding of current medical conditions; weighing benefits/burdens of medical treatment options; making medical treatment decisions. HPI History of Present Illness This 71-year-old male was brought to [facility] as a Rodriguez act when refusing to comply with critical treatment for dialysis, and was transferred to inpatient psychiatry. He is reported to have recent admission at [facility] for volume overload. He is currently homeless. He apparently has reported depression and difficulty sleeping. He also reported chronic nonbloody emesis 0-3 times a day not associated with meals for the past 3-4 years. He reported having been worked up by GI physicians with panendoscopy with no findings. 9 fever or chills, lightheadedness or dizziness, or vision changes. Night shortness of breath. Reports chronic loose stools. Reports anuric. * Psychiatry evaluated this patient 07/12/17 Dr. Lange notes: Patient is" Competent to provide express and informed consent, as defined above, for voluntary admission to this facility and is competent to provide express and informed consent for treatment. He/she has the consistent capacity to make well reasoned, willful, and knowing decisions concerning his or her medical or mental health treatment. The person fully and consistently understands the purpose of the admission for examination/placement and is fully capable of personally exercising all rights [place] Patient denied suicidal ideation but did indicate that he was going to refuse dialysis because he was unable to have some freedom such as going to take a walk when he wanted to. He endorses feeling depressed due to limited ability to engage in activities secondary to medical issues. No previous psychiatric conditions are diagnosed as reported. Patient started on sertraline 25 mg to be increased to 50 mg after first dose. * 07/14 palliative care consulted to assist with clarifying medical wishes, uncertainty if patient had ability to make decisions . patient documented to be agreeing to continue with dialysis. * Later 07/14 psychiatry notes patient with limited insight into the reality of his homelessness, notes petition for involuntary hospitalization will be started , there is concern for patient being unable to care for himself. Planned for secondary psychiatric reevaluation. * 07/15 patient seen for psychiatric reevaluation. Dr. Meng notes the patient is alert and oriented, not suicidal. Patient agreeing with voluntary admission, Dr. Meng recommends transfer to medical floor when able. Seroquel 25 mg added at bedtime for mood and insomnia. Palliative public health social worker spoke with patient friend Patrick earlier today, attempted to reach son unable to leave message. Patient seen in room after discussing with primary nurse on med psych unit. Has just arrived back from dialysis apparently required Ativan during for anxiety. He is now lethargic. He is arousable and generally cooperative however falls asleep often during my conversation it is difficult to have thorough discussion regarding condition and goals with him. He appears to be mostly oriented though he falls asleep during my questions. He appears to have some insight into conditions when I asked about him refusing hemodialysis if he understands the repercussions. He indicates he understands there'll be a "2 weak consequence "--asked him to further elaborate this, he indicates he would not live beyond 2 weeks at the most. Attempt to explore additional psychosocial history, questions about his friend Patrick, as well as his son in [place], he falls asleep during this and I am unable to get further information. Will continue conversation tomorrow morning when he will not be post hemodialysis. Discussed with primary nurse. . Function/Cognitive Trajectory Apparently lived at home independently in an apartment up until some point recently when he had a prolonged hospitalization, and apparently lived with his son temporarily but was no longer allowed to live there, most recently reported to be homeless not clear that that has been for very long. Apparently able to take himself to dialysis. Review of Systems ROS Limitations: Uncooperative (too lethargic), Poor Historian, Other ( lethargic) Psychiatric: COMPLAINS OF: Depression Past Family Social History Coded Allergies: No Known Allergies (Verified Allergy, Unknown, 07/12/17) Past Medical History End-stage renal disease on hemodialysis Saturday Atrial fibrillation with RVR Hypertension CHF COPD History of prostate cancer . Past Surgical History Tonsillectomy AV fistula . Reported Medications DuoNeb's when necessary Xanax 0.25 mg 1 by mouth 3 times a day when necessary anxiety Aspirin 81 mg daily Calcitrol 1 mcg Saturday Isosorbide 30 mg by mouth daily Metoprolol tartrate 50 mg twice a day Renvela 800 mg 1 by mouth 3 times a day Sucralfate 1gm po QID Trazodone 150mg po qhs prn insomnia . Current Medications Medications (Trade) Dose Ordered Sig/Leandro Route Start Time Stop Time Status Last Admin Sodium Chloride 1,000 ml @ 0 mls/hr Q0M PRN OTHER 07/12/17 19:05 (Heparin Inj) 8,000 units UNSCH PRN IV FLUSH 07/12/17 19:15 Sodium Chloride 1,000 ml @ 200 mls/hr Q5H PRN IV 07/12/17 19:05 Sodium Chloride 1,000 ml @ 0 mls/hr Q0M PRN OTHER 07/12/17 19:05 (Mannitol Inj) 12.5 gm UNSCH PRN IV 07/12/17 19:15 (NS Flush) 5 ml UNSCH PRN IV FLUSH 07/12/17 19:15 (Heparin Inj) UNSCH PRN .XX 07/12/17 19:15 07/15/17 14:57 (Gentamicin Inj) 20 mg UNSCH PRN OTHER 07/12/17 19:15 07/15/17 14:58 (Zofran Inj) 4 mg UNSCH PRN IV PUSH 07/12/17 19:15 07/13/17 11:10 (Benadryl) 25 mg UNSCH PRN PO 07/12/17 19:15 07/15/17 13:10 (Nitrostat Sl) 0.4 mg UNSCH PRN SL 07/12/17 19:15 (Catapres) 0.1 mg UNSCH PRN PO 07/12/17 19:15 (Epogen Inj) 4,000 units UNSCH PRN IV PUSH 07/12/17 19:15 07/15/17 14:58 (Gelfoam 12 Mm/7 Mm Top) 1 foam UNSCH PRN TOP 07/12/17 19:15 (Tylenol) 650 mg Q4H PRN PO 07/12/17 20:00 07/14/17 21:16 (Milk Of Magnesia Liq) 30 ml DAILY PRN PO 07/12/17 20:00 (Mag-Al Plus Susp Liq) 30 ml Q6H PRN PO 07/12/17 20:00 (Habitrol 21 Mg Patch.24 Hr) 1 patch DAILY PRN T-DERMAL 07/13/17 09:00 Miscellaneous Information 1 HS PRN T-DERMAL 07/12/17 21:00 (Duoneb Neb) 1 ampule Q4HR NEB PRN NEB 07/12/17 23:45 07/15/17 05:54 (Zoloft) 50 mg DAILY PO 07/14/17 09:00 07/15/17 10:00 (Benadryl) 25 mg HS PRN PO 07/13/17 15:00 07/14/17 21:15 (Atarax) 25 mg Q6H PRN PO 07/13/17 15:00 07/15/17 10:37 (Pill Splitter) 1 ea UNSCH PRN OTHER 07/13/17 15:00 (Aspirin Chew) 81 mg DAILY CHEW 07/14/17 09:00 07/15/17 10:00 (Lopressor) 50 mg BID PO 07/13/17 21:00 07/15/17 10:00 (Renvela) 800 mg TID PO 07/13/17 18:00 07/15/17 10:00 (Prevacid Odt) 30 mg DAILY PO 07/14/17 09:00 07/15/17 10:00 (Carafate Liq) 1 gm ACHS PO 07/13/17 17:00 07/15/17 10:00 (Isordil) 30 mg DAILY PO 07/14/17 09:00 07/15/17 10:00 (Catapres) 0.1 mg Q6H PRN PO 07/13/17 16:00 (Rocaltrol) 1 mcg MoWeFr PO 07/15/17 17:00 (Restoril) 15 mg HS PRN PO 07/15/17 10:30 (Benadryl) 25 mg Q6H PRN PO 07/15/17 10:30 (SEROquel) 25 mg HS PO 07/15/17 21:00 Family History Per EMRb Father, , prostate cancer Mother, , brain and lung cancer Substance Use Tobacco: Smoked 1 PPD 40 years quit 2-1/2 years ago. Alcohol: Denies Prescription med abuse: Denies Illicits: Denies . Psychosocial History Per psychiatry evaluation: Patient with one estranged adult son living in [place]. Currently homeless and unemployed. Per Patrick pt friend of many years, he had been living in an apartment independently, but had frequent hospitalizations, lived with his son for a short time in [place], his son was not allowing him to stay there and he cannot return to his prev apartment. He met Patrick while they were both studying at the [employer]. . Living Will: Never completed Health Care Surrogate: Never completed Durable Power of Passenger Rate Clerk: Never completed Ethical and Legal Issues Patient appears to have been deemed capacitated, and here voluntarily per psychiatric evaluations. In that case he is able to make his own medical decisions. Palliative will attempt to assist him with health care surrogate designation. I attempted to do this with him today however he was too drowsy to thoroughly discuss. Physical Exam Vital Signs Date Time Temp Pulse Resp B/P (MAP) Pulse Ox O2 Delivery O2 Flow Rate FiO2 07/15/17 06:16 91 07/15/17 05:54 90 Nasal Cannula 2.00 07/15/17 05:26 98.1 102 16 131/73 (92) 83 07/14/17 18:21 98.2 92 17 113/67 (82) 88 07/15/17 07/16/17 19:00 07:00 Intake Total 1200 ml Balance 1200 ml Intake Oral 1200 ml Exam CONSTITUTIONAL/GENERAL: This is an adequately nourished patient, in no apparent distress, lethargic TUBES/LINES/DRAINS: vascular access lt SC SKIN: No jaundice, rashes, or lesions. No wounds seen anteriorly. Skin warm/dry HEAD: Atraumatic. Normocephalic. EYES: Pupils equal and round and reactive. Extraocular motions intact. No scleral icterus. No injection or drainage. Fundi not examined. ENT: PAMUNKEY. Nose without bleeding or purulent drainage. Throat without visible erythema, exudates, masses, or lesions. NECK: Trachea midline. Supple, nontender. CARDIOVASCULAR: Regular rate and rhythm without murmur. Peripheral pulses symmetric. RESPIRATORY/CHEST: Symmetric, unlabored respirations. Clear to auscultation, diminished. Breath sounds equal bilaterally. GASTROINTESTINAL: Abdomen soft, non-tender, nondistended. No hepato-splenomegaly , or palpable masses. No guarding. Bowel sounds present. GENITOURINARY: Without palpable bladder distension. MUSCULOSKELETAL: Extremities without clubbing, cyanosis, or edema. No joint tenderness or effusion noted. NEUROLOGICAL: lethargic, oriented to self, ?hospital. Too sleepy to participate fully does not answer all questions . moving all 4 extremities, following some commands. PSYCHIATRIC:lethargic, No obvious anxiety/depression. no apparent hallucinations or other psychotic thought process. Diagnostic Tests Laboratory Laboratory Tests Test 07/12/17 21:10 07/13/17 08:40 07/13/17 21:27 07/14/17 15:55 Hepatitis A IgM Antibody NONREACTIVE (NONREACTIVE) Hepatitis B Surface Antigen NONREACTIVE (NONREACTIVE) Hepatitis B Core IgM Antibody NONREACTIVE (NONREACTIVE) Hepatitis C IgG Antibody NONREACTIVE (NONREACTIVE) Blood Urea Nitrogen 68 MG/DL (7-18) 54 MG/DL (7-18) Creatinine 10.37 MG/DL (0.60-1.30) 9.40 MG/DL (0.60-1.30) Random Glucose 119 MG/DL (74-106) 108 MG/DL (74-106) Calcium Level 9.5 MG/DL (8.5-10.1) 9.4 MG/DL (8.5-10.1) Sodium Level 132 MEQ/L (136-145) 133 MEQ/L (136-145) Potassium Level 5.7 MEQ/L (3.5-5.1) 5.8 MEQ/L (3.5-5.1) Chloride Level 95 MEQ/L (98-107) 96 MEQ/L (98-107) Carbon Dioxide Level 21.1 MEQ/L (21.0-32.0) 24.3 MEQ/L (21.0-32.0) Anion Gap 16 MEQ/L (5-15) 13 MEQ/L (5-15) Estimat Glomerular Filtration Rate 6 ML/MIN (>89) 7 ML/MIN (>89) Hemoglobin A1c 5.4 % (4.3-6.0) Triglycerides Level 50 MG/DL (42-150) Cholesterol Level 67 MG/DL (120-200) LDL Cholesterol 25 MG/DL (0-99) HDL Cholesterol 31.8 MG/DL (40.0-60.0) Cholesterol/HDL Ratio 2.10 RATIO B-Type Natriuretic Peptide 1548 PG/ML (0-100) Total Protein 7.2 GM/DL (6.4-8.2) Albumin 4.1 GM/DL (3.4-5.0) Phosphorus Level 3.6 MG/DL (2.5-4.9) Magnesium Level 2.3 MG/DL (1.5-2.5) Alkaline Phosphatase 231 U/L (45-117) Aspartate Amino Transf (AST/SGOT) 20 U/L (15-37) Alanine Aminotransferase (ALT/SGPT) 14 U/L (12-78) Total Bilirubin 0.4 MG/DL (0.2-1.0) Test 07/15/17 07:28 White Blood Count 16.9 TH/MM3 (4.0-11.0) Red Blood Count 4.41 MIL/MM3 (4.50-5.90) Hemoglobin 12.3 GM/DL (13.0-17.0) Hematocrit 37.7 % (39.0-51.0) Mean Corpuscular Volume 85.5 FL (80.0-100.0) Mean Corpuscular Hemoglobin 27.9 PG (27.0-34.0) Mean Corpuscular Hemoglobin Concent 32.6 % (32.0-36.0) Red Cell Distribution Width 18.2 % (11.6-17.2) Platelet Count 280 TH/MM3 (150-450) Mean Platelet Volume 8.2 FL (7.0-11.0) Blood Urea Nitrogen 64 MG/DL (7-18) Creatinine 10.78 MG/DL (0.60-1.30) Random Glucose 89 MG/DL (74-106) Total Protein 7.3 GM/DL (6.4-8.2) Albumin 4.1 GM/DL (3.4-5.0) Calcium Level 9.8 MG/DL (8.5-10.1) Alkaline Phosphatase 223 U/L (45-117) Aspartate Amino Transf (AST/SGOT) 15 U/L (15-37) Alanine Aminotransferase (ALT/SGPT) 11 U/L (12-78) Total Bilirubin 0.4 MG/DL (0.2-1.0) Sodium Level 132 MEQ/L (136-145) Potassium Level 5.1 MEQ/L (3.5-5.1) Chloride Level 94 MEQ/L (98-107) Carbon Dioxide Level 24.6 MEQ/L (21.0-32.0) Anion Gap 13 MEQ/L (5-15) Estimat Glomerular Filtration Rate 6 ML/MIN (>89) Result Diagram: 07/15/17 0728 07/15/17 0728 Imaging Last Impressions Chest X-Ray 07/13/17 0000 Signed Impressions: Service Date/Time: Saturday, July 13, 2017 16:01 - CONCLUSION: Moderate congestive failure Jay Redd MD FACR Patient/Family Conference Family Conference Location: Bedside Issues Discussed: Very limited conversation with patient as he is lethargic and does not readily engaged. He has just gone back from hemodialysis were nursing reports he received Ativan for anxiety. He does appear mostly oriented, has some insight to his hemodialysis, though he is unable to carry on a thorough conversation. I attempted to explore who we did entrust to designate as HCS, he indicates he would "trust everyone ". Palliative will continue to attempt to discuss conditions, goals with him, and possibly assist him with healthcare surrogate designation should he desire to complete this. . Assessment and Plan Disease Oriented Problem List: (1) COPD (chronic obstructive pulmonary disease) (2) Hypertension (3) ESRD (end stage renal disease) on dialysis (4) Adjustment disorder with depressed mood Symptom Scale: (1) Depression (2) Confusion Pertinent Non-Medical Issues Psychosocial:Per psychiatry evaluation: Patient with one estranged adult son living in [place]. Currently homeless and unemployed. Per Patrick pt friend of many years, he had been living in an apartment independently, but had frequent hospitalizations, lived with his son for a short time in [place], his son was not allowing him to stay there and he cannot return to his prev apartment. He met Patrick while they were both studying at the [employer]. Spiritual: Legal:Patient appears to have been deemed capacitated, and here voluntarily per psychiatric evaluations. In that case he is able to make his own medical decisions. Palliative will attempt to assist him with health care surrogate designation. I attempted to do this with him today however he was too drowsy to thoroughly discuss. He appears to be mostly oriented and cooperative during my evaluation today however post dialysis and Ativan administration, + drowsy. Ethical issues impacting care: Important Contacts son Antoni Lagos JR ([phone])-palliative public health social worker attempted to call this number there was no answer unable to leave voicemail an ex- Tona ([phone]), friend Patrick Farrell ([phone]). Prognosis This patient was initially admitted as a Rodriguez act for refusing hemodialysis. He has multiple chronic medical conditions which without ongoing aggressive treatment would be terminal however he is indicated he wishes to continue hemodialysis and other treatments. He is expected to survive current acute hospitalization and will likely return to baseline status. . Code Status: Full Code Plan * Legal decision maker:Patient appears to have been deemed capacitated, and here voluntarily per psychiatric evaluations. In that case he is able to make his own medical decisions. Palliative will attempt to assist him with health care surrogate designation. I attempted to do this with him today however he was too drowsy to thoroughly discuss. He appears to be mostly oriented and cooperative during my evaluation today however post dialysis and Ativan administration, + drowsy. * Goals: TBD. Pt has indicated that he is willing to continue with voluntary hospitalization. * CODE STATUS: Full code by default * SYMPTOMS: --Confusion-presented with some confusion, Rodriguez act. Since admission patient reported to be more oriented, appropriate, here under voluntary admission --Depression-patient with multiple chronic medical conditions, hemodialysis. Endorses sadness and depression secondary to inability to participate in activities due to his health; psychiatry has started on sertraline, as well as Seroquel daily at bedtime for insomnia, mood. * Palliative care will continue to follow during hospital course as condition evolves, to assist patient/decision-maker with understanding of medical conditions, weighing benefits/burdens of treatment options, for clarification of goals of treatment. Additionally will assist with any symptoms of palliative concern Thank you for the opportunity to participate in the care of Mr. Lagos. Attestation To help prompt me to consider important information that might be impacting today's encounter and assessment, information from prior notes written by myself or my colleagues may have been "brought forward" into today's note. My signature on this note, however, is an attestation that I personally performed the exam, history, and/or decision-making noted today, and, unless otherwise indicated, the interactions with patient, family, and staff as well as the review of records all occurred today. I also attest that the listed assessment and stated plan reflect my best clinical judgment today based on the combination of historical information, prior notes, and today's exam/ interactions. When time spent is documented, it refers only to time spent today by the signer, or if indicated, combined time spent today by collaborating physician/nurse practitioner. Kimi Frye Jul 15, 2017 16:13
[2017-07-15] MEDS ORDERED: CALCITRIOL 0.25 MCG CAP PO SCH (17:00)
[2017-07-15 18:14] VITALS: BP 102/54; PULSE 101; RESP 16; TEMP 98.9; O2SAT 96
[2017-07-15 20:16] VITALS: O2SAT 93
[2017-07-15] MEDS: QUEtiapine FUMARATE 25 MG TAB PO SCH (21:07)
[2017-07-15 21:08] VITALS: BP 119/61
[2017-07-16 04:28] VITALS: BP 131/56; PULSE 105; RESP 16; TEMP 97.9; O2SAT 85
[2017-07-16] MEDS: RESP: ALBUTEROL 2.5 MG/IPRATROPIUM 0.5 MG NEB (PRN) NEB ×3 (04:30→14:02)
[2017-07-16] MEDS: SEVELAMER CARBONATE 800 MG TAB PO SCH ×3 (08:47→18:08)
[2017-07-16] MEDS: METOPROLOL TARTRATE 50 MG TAB PO SCH ×2 (08:48→20:26)
[2017-07-16] MEDS: ISOSORBIDE DINITRATE 10 MG TAB PO SCH (08:48)
[2017-07-16] MEDS: SUCRALFATE 1 GM/10 ML CUP PO SCH ×4 (08:48→20:26)
[2017-07-16] MEDS: ASPIRIN 81 MG CHEW TAB CHEW SCH (08:48)
[2017-07-16] MEDS: LANSOPRAZOLE SOLUTAB 30 MG TAB PO SCH (08:48)
[2017-07-16] MEDS: SERTRALINE HCL 50 MG TAB PO SCH (08:48)
[2017-07-16 09:37] VITALS: O2SAT 91
[2017-07-16] MEDS: hydrOXYzine HCL 25 MG TAB PO PRN (11:40)
--- NOTE | 2017-07-16 11:48 | HHI.HCPN ---
Reason for visit a. To assist with evaluation and management of symptoms including: confusion ,depression b. To assist medical decision maker(s) with: better understanding of current medical conditions; weighing benefits/burdens of medical treatment options; making medical treatment decisions. Subjective/Interval History Pt seen to follow up on goals, HCS, comfort. 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 d/w nurse, Dr Meng. Dr Meng feels pt able to make decisions, future oriented, appropriate. May need ongoing medical tx, as well as social insurance administrator for placement/discharge planning, cleared to transfer to medical floor. Pt ambulating halls, met with him in the room of units. he is alert, oriented appears to have reasonable understanding of hospitalization and current situation. He is able to clearly speak to why he needs dialysis, as well as his other medical conditions, he indicates that his coming to be Rodriguez acted was a misunderstanding on the part of whoever ordered this, as he knows that he needs dialysis and he was not trying to refuse it he was trying to reschedule the timing of it. He understands he will have significant limited life expectancy of a week or 2 should he stop dialysis. He also indicates that he knows at some point it will be time for him "to go "and at that time he would accept that but he is not trying to end his life currently, he wants to do what things he needs to do to be as stable as he can be. Exploration of CODE STATUS and what resuscitation entails he indicates that he would want to undergo CPR and the ventilator however if at some point he was determined to be "vegetative "then he would not want to continue prolonged life support he would want it to be "turned off ". He provides additional psychosocial history regarding his family, dynamics, and how most recently he does not have a residence to call home. He had his own place for some time then ended up living with his son, there were some difficulties in the family dynamics with that and the son "kicked him out ", was staying with his ex- for short while, and then she apparently rented him a hotel room for about a week, which of course ran out. He was then hospitalized for many days in [place] at which point he indicates he was then transferred here. He doesn't know who else he would be able to live with, he thinks that he can ask his son again but he is not sure if his son will accept this. He does not think that he can live with his ex- again though they do have an open relationship. He does not feel he would be able to live with his good friend Patrick in [place]. He really doesn't know who he would be able to live with, and this is very frustrating for him that he now has no place to live, as he feels he is able to attend to his own needs and feels he is a "prisoner "in the hospital setting. He does agree to complete healthcare surrogate designation he designates son or ex- or friend Patrick, any of them to serve as healthcare surrogate. Copy sent to medical records. . Advance Directives Living Will: Never completed Health Care Surrogate: Copy in medical record Durable Power of Mastercam Programmer: Never completed Advance Directive Specifics Date completed: 07/16/17 Health Care Surrogate(s): Designates son Antoni Lagos , ex- Fidelia Lagos , friend Patrick Farrell Objective Vital Signs Date Time Temp Pulse Resp B/P (MAP) Pulse Ox O2 Delivery O2 Flow Rate FiO2 07/16/17 09:37 91 Nasal Cannula 2.50 07/16/17 04:28 97.9 105 16 131/56 (81) 85 07/15/17 21:08 119/61 (80) 07/15/17 20:16 93 07/15/17 18:14 98.9 101 16 102/54 (70) 96 Intake & Output 07/16/17 07/16/17 07:00 19:00 Intake Total 640 ml 720 ml Balance 640 ml 720 ml Intake Oral 640 ml 720 ml # Voids 1 Physical Exam CONSTITUTIONAL/GENERAL: This is an adequately nourished patient,alert pleasant cooperative TUBES/LINES/DRAINS: dialysis access Lt SC SKIN: No jaundice, rashes, or lesions.skin warm. dry HEAD: Atraumatic. Normocephalic. CARDIOVASCULAR: Regular rate and rhythm without murmur. No JVD. Peripheral pulses symmetric. RESPIRATORY/CHEST: Symmetric, unlabored respirations.Mildly short of breath after ambulation, or with prolonged conversation. Clear with some scattered expiratory wheezes.diminished air movement. GASTROINTESTINAL: Abdomen soft, non-tender, nondistended. Bowel sounds present. MUSCULOSKELETAL: Extremities without clubbing, cyanosis, or edema. NEUROLOGICAL: Awake and alert, oriented x3. appropriate appears to have reasonable insight and judgement. Motor and sensory grossly within normal limits. Follows commands. Cognitively sharp. Moves all extremities. PSYCHIATRIC: No obvious anxiety/depression. no apparent hallucinations or other psychotic thought process. Diagnostic Tests Laboratory Laboratory Tests Test 07/13/17 21:27 07/14/17 15:55 07/15/17 07:28 B-Type Natriuretic Peptide 1548 PG/ML (0-100) Blood Urea Nitrogen 54 MG/DL (7-18) 64 MG/DL (7-18) Creatinine 9.40 MG/DL (0.60-1.30) 10.78 MG/DL (0.60-1.30) Random Glucose 108 MG/DL (74-106) 89 MG/DL (74-106) Total Protein 7.2 GM/DL (6.4-8.2) 7.3 GM/DL (6.4-8.2) Albumin 4.1 GM/DL (3.4-5.0) 4.1 GM/DL (3.4-5.0) Calcium Level 9.4 MG/DL (8.5-10.1) 9.8 MG/DL (8.5-10.1) Phosphorus Level 3.6 MG/DL (2.5-4.9) Magnesium Level 2.3 MG/DL (1.5-2.5) Alkaline Phosphatase 231 U/L (45-117) 223 U/L (45-117) Aspartate Amino Transf (AST/SGOT) 20 U/L (15-37) 15 U/L (15-37) Alanine Aminotransferase (ALT/SGPT) 14 U/L (12-78) 11 U/L (12-78) Total Bilirubin 0.4 MG/DL (0.2-1.0) 0.4 MG/DL (0.2-1.0) Sodium Level 133 MEQ/L (136-145) 132 MEQ/L (136-145) Potassium Level 5.8 MEQ/L (3.5-5.1) 5.1 MEQ/L (3.5-5.1) Chloride Level 96 MEQ/L (98-107) 94 MEQ/L (98-107) Carbon Dioxide Level 24.3 MEQ/L (21.0-32.0) 24.6 MEQ/L (21.0-32.0) Anion Gap 13 MEQ/L (5-15) 13 MEQ/L (5-15) Estimat Glomerular Filtration Rate 7 ML/MIN (>89) 6 ML/MIN (>89) White Blood Count 16.9 TH/MM3 (4.0-11.0) Red Blood Count 4.41 MIL/MM3 (4.50-5.90) Hemoglobin 12.3 GM/DL (13.0-17.0) Hematocrit 37.7 % (39.0-51.0) Mean Corpuscular Volume 85.5 FL (80.0-100.0) Mean Corpuscular Hemoglobin 27.9 PG (27.0-34.0) Mean Corpuscular Hemoglobin Concent 32.6 % (32.0-36.0) Red Cell Distribution Width 18.2 % (11.6-17.2) Platelet Count 280 TH/MM3 (150-450) Mean Platelet Volume 8.2 FL (7.0-11.0) Result Diagram: 07/15/17 0728 07/15/17 0728 Assessment and Plan Disease Oriented Problem List: (1) COPD (chronic obstructive pulmonary disease) (2) Hypertension (3) ESRD (end stage renal disease) on dialysis (4) Adjustment disorder with depressed mood Symptom Scale: (1) Depression (2) Confusion Pertinent Non-Medical Issues Psychosocial:Per psychiatry evaluation: Patient with one estranged adult son living in [place]. Currently homeless and unemployed. Per Patrick pt friend of many years, he had been living in an apartment independently, but had frequent hospitalizations, lived with his son for a short time in [place], his son was not allowing him to stay there and he cannot return to his prev apartment. He met Patrick while they were both studying at the [employer]. [Patient later able to provide additional social history. He completed high school, was drafted into the served 2 years. Studied physical education at the [employer] however "failed out ". 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 young, young though he has remained in communication with his ex- and son. He has remained lifelong friends with Patrick whom he met at the [employer]. He still has extended family up in [place] as well as his son]. Spiritual: Legal:Patient appears to have been deemed capacitated, and here voluntarily per psychiatric evaluations. In that case he is able to make his own medical decisions. Patient completed health care surrogate designation 07/16/17 naming son, ex-, Patrick friend as HCS. Ethical issues impacting care: Important Contacts son Antoni Lagos JR ([phone])-palliative social worker aide attempted to call this number there was no answer unable to leave voicemail an ex- Tona ([phone]), friend Patrick Farrell ([phone]). Prognosis This patient was initially admitted as a Rodriguez act for refusing hemodialysis. He has multiple chronic medical conditions which without ongoing aggressive treatment would be terminal however he is indicated he wishes to continue hemodialysis and other treatments. He is expected to survive current acute hospitalization and will likely return to baseline status. . Code Status: Full Code Plan * Legal decision maker:Patient appears to have been deemed capacitated, and here voluntarily per psychiatric evaluations. In that case he is able to make his own medical decisions. Palliative will attempt to assist him with health care surrogate designation. Patient completed health care surrogate designation 07/16/17 naming son, ex-, Patrick friend as HCS * Goals: Goals are aggressive, patient wishes to continue with whatever treatments are necessary to maintain his health. He indicates his refusal of dialysis was not actually a refusal, he was wanting to reschedule the timing. He understands dialysis is necessary to keep him alive, he is not interested in end-of-life comfort care only or cessation of medical treatments. * CODE STATUS: Full code * SYMPTOMS: --Confusion-presented with some confusion, Rodriguez act. Since admission patient reported to be more oriented, appropriate, here under voluntary admission --Depression-patient with multiple chronic medical conditions, hemodialysis. Endorses sadness and depression secondary to inability to participate in activities due to his health; psychiatry has started on sertraline, as well as Seroquel daily at bedtime for insomnia, mood. * Palliative care will continue to follow during hospital course as condition evolves, to assist patient/decision-maker with understanding of medical conditions, weighing benefits/burdens of treatment options, for clarification of goals of treatment. Additionally will assist with any symptoms of palliative concern Attestation To help prompt me to consider important information that might be impacting today's encounter and assessment, information from prior notes written by myself or my colleagues may have been "brought forward" into today's note. My signature on this note, however, is an attestation that I personally performed the exam, history, and/or decision-making noted today, and, unless otherwise indicated, the interactions with patient, family, and staff as well as the review of records all occurred today. I also attest that the listed assessment and stated plan reflect my best clinical judgment today based on the combination of historical information, prior notes, and today's exam/ interactions. When time spent is documented, it refers only to time spent today by the signer, or if indicated, combined time spent today by collaborating physician/nurse practitioner. Kimi Frye Jul 16, 2017 11:48
--- NOTE | 2017-07-16 12:37 | HHI.PR ---
Subjective Remarks Patient is in the chair no shortness of breath no wheezing at this time. He is desaturating well on 3 L by nasal cannula. Her nurse he was ambulated earlier today without oxygen. He is noncompliant with oxygen. Denies fever or chills. No cough. Feels very tired. No nausea or vomiting. Objective Vitals Vital Signs Date Time Temp Pulse Resp B/P (MAP) Pulse Ox O2 Delivery O2 Flow Rate FiO2 07/16/17 09:37 91 Nasal Cannula 2.50 07/16/17 04:28 97.9 105 16 131/56 (81) 85 07/15/17 21:08 119/61 (80) 07/15/17 20:16 93 07/15/17 18:14 98.9 101 16 102/54 (70) 96 I/O 07/15/17 07/15/17 07/15/17 07/16/17 07/16/17 07/16/17 07:00 15:00 23:00 07:00 15:00 23:00 Intake Total 840 ml 1200 ml 720 ml 160 ml 720 ml Output Total 2500 ml Balance 840 ml 1200 ml -1780 ml 160 ml 720 ml Intake Oral 840 ml 1200 ml 720 ml 160 ml 720 ml Output Hemodialysis 2500 ml # Voids 8 1 Result Diagram: 07/15/17 0728 07/15/17 0728 Imaging Last Impressions Chest X-Ray 07/13/17 0000 Signed Impressions: Service Date/Time: Thursday, July 13, 2017 16:01 - CONCLUSION: Moderate congestive failure Jay Redd MD FACR Objective Remarks GEN: Well-developed, well-nourished patient. No acute distress. CV: Irregularly irregular LUNGS: Clear to auscultation bilaterally. Normal respiratory effort. No wheezes , rales, rhonchi. GI: Soft, nontender, nondistended. No palpable masses. Bowel sounds WNL. EXT: No edema. Left arm with port NEURO/PSYCH: Afocal. Awake, alert, and oriented x3. Appropriate insight and judgment. A/P Problem List: (1) Adjustment disorder with depressed mood ICD Code: F43.21 - Adjustment disorder with depressed mood (2) ESRD (end stage renal disease) on dialysis ICD Code: N18.6 - End stage renal disease; Z99.2 - Dependence on renal dialysis (3) Hypertension ICD Code: I10 - Essential (primary) hypertension Assessment and Plan 71-year-old male with past medical history significant for atrial fibrillation with RVR, end-stage renal disease on hemodialysis Saturday, COPD, hypertension, CHF and prostate cancer currently homeless who was brought in under [employer] act after patient refused to comply with critical treatment for dialysis and was transferred to inpatient psychiatry. Hospitalist services have been consulted for medical management. Depression Dialysis noncompliance -Management per psychiatric team ESRD on HD MWF Missed dialysis appointment . and is noncompliant with Hd -Nephrology following -Continue Hd per nephro -Avoid nephrotoxic agents -Continue patient on home dose of Renvela Hyperkalemia -Management per nephrology Hyponatremia -mild -patient appears euvolemic. -repeat BMP in am: Pending Atrial fibrillation with RVR -Continue on Metoprolol 50mg BID -[id number] score 3, patient on ASA only for anticoagulation. Recommend follow up with scale operator as an outpatient at discharge. -continue to monitor HR CHF, not decompensated -recent hospitalization for fluid overload -Appears euvolemic at this time, continue to monitor fluid status -continue on BB Hypertension -Resume patient's home dose of metoprolol 50 mg twice a day -Continue to monitor BP and adjust treatment accordingly -Clonidine prn with parameters COPD, not in acute exacerbation ?Chronic respiratory insufficiency -Patient does not use oxygen at home -O2 sats 88% on RA. Currently requires supplemental oxygen to maintain appropriate O2 saturations. -Chest x-ray showing moderate congestive failure. Image examined by me -We will monitor with dialysis for improvement having taking off some fluids. -home oxygen walk test Hx of prostate cancer -chronic Chronic N/V -Patient reports extensive negative workup as an outpatient -Resume patient on previous dose of PPI and Carafate DVT prophylaxis -Patient is ambulatory on the unit Discharge Planning Discussed with Dr. Meng psychiatry. Patient is cleared from psychiatry. However the patient is desaturating while on 3 L by nasal cannula and needs transfer to medical floor. Transfer to cancel transfer patient to medical floor. We will do ABG, repeat labs today CBC and BMP. Patient needs dialysis. Patient also might need long term facility or CORRECTION at discharge. Marguerite Melara MD Jul 16, 2017 12:37
--- NOTE | 2017-07-16 12:44 | HHI.DS ---
Psychiatry Discharge Summary Inpatient Psychiatric care?: Yes Advance Directive: No Reason Not Provided: pt stated no will or advanced directive Mental Health AdvanceDirective: No Health Care Proxy: No Admission Admission Date Jul 12, 2017 at 17:41 Admission Diagnosis: (1) Adjustment disorder with depressed mood ICD Code: F43.21 - Adjustment disorder with depressed mood Brief History Patient is a 71-year-old week Hungarian man, , has 1 adult son, currently homeless, with no formal past psychiatric history, with a past medical history significant for end-stage renal disease on dialysis, COPD, A. fib, was brought in under [employer] act after patient refused to comply with critical treatment for dialysis and was transferred to the inpatient psychiatry for further evaluation and management. As per chart patient was admitted recently to medical service for volume overload and hyperkalemia which patient received hemodialysis and had poor change. Patient was seen earlier this morning but was transported to him hemodialysis but was later seen in the afternoon. Patient states prior to his admission he was transferred from [facility] where he had been admitted for more than 70 days states that yesterday he was to be dressed reported to an SHELTER in [place] but was instead transferred to this hospital. Patient reports recently having had decreased sleep, energy and concentration along with feeling depressed due to having limited ability to engage in certain activities secondary to his chronic medical issues. Patient denies any suicide ideations at this time but admitting to stating that he was going to refuse dialysis because he was unable to have some freedoms such as going to be to take a walk when he wanted to. Patient at this time continues report feeling depressed but denying any suicide ideations, denying any auditory or visual hallucinations or delusions. Family psychiatric history: Denies Past psychiatric history: Denies previous psychiatric diagnoses, no prior psychiatric admissions, suicide attempt or self interest behavior. Patient denies history of abuse. Substance use history: Patient reports history of tobacco use years ago as well as alcohol use. Denies any current use of any substance. Past medical history: A. fib, end-stage renal disease on dialysis, COPD Allergies: NKDA Social history: , has 1 adult son living in [place], currently homeless , unemployed. Tobacco Use In Past 30 Days: No Tobacco Past 30 Days Alcohol Use: Never Hospital Course Patient was brought in under cVidya act after patient refused to comply with critical treatment for dialysis and was transferred to the inpatient psychiatry for further evaluation and management. As per chart patient was admitted recently to medical service for volume overload and hyperkalemia which patient received hemodialysis and had poor change. Patient states prior to his admission he was transferred from [facility] where he had been admitted for more than 70 days states that yesterday he was to be dressed reported to an SHELTER in [place] but was instead transferred to this hospital. Patient reports recently having had decreased sleep, energy and concentration along with feeling depressed due to having limited ability to engage in certain activities secondary to his chronic medical issues. Patient states that beginning the night any suicide ideations at this time but admitting to stating that he was going to refuse dialysis because he was unable to have some freedoms such as going to be to take a walk when he wanted to. During his stay in the hospital the patient was usually calm, cooperative, energetically demanding to speak with a social human services assistants to finding housing for him. The patient was always future oriented, very forthcoming, involved in his medical and psychiatric care. The patient received medical care for his hemodialysis, and during that hospitalization in psychiatry he has several episodes of shortness of breath was even difficult to talk to him. At this moment the patient is future oriented, denies depressed mood, denies suicidal or homicidal ideation, he denies visual and auditory hallucinations. His insomnia that was treated with Seroquel 25 mg at bedtime is also much better. At this point the patient does not need to continue his psychiatric admission and he can be transferred to the medical floor to continue medical treatment of his COPD and end-stage renal disease. Results Blood Pressure 131 / 56 Vital Signs Date Time Temp Pulse Resp B/P (MAP) Pulse Ox O2 Delivery O2 Flow Rate FiO2 07/16/17 09:37 91 Nasal Cannula 2.50 07/16/17 04:28 97.9 105 16 131/56 (81) 07/14/17 12:24 21 Laboratory Tests Test 07/13/17 21:27 07/14/17 15:55 07/15/17 07:28 B-Type Natriuretic Peptide 1548 PG/ML (0-100) Blood Urea Nitrogen 54 MG/DL (7-18) 64 MG/DL (7-18) Creatinine 9.40 MG/DL (0.60-1.30) 10.78 MG/DL (0.60-1.30) Random Glucose 108 MG/DL (74-106) Alkaline Phosphatase 231 U/L (45-117) 223 U/L (45-117) Sodium Level 133 MEQ/L (136-145) 132 MEQ/L (136-145) Potassium Level 5.8 MEQ/L (3.5-5.1) Chloride Level 96 MEQ/L (98-107) 94 MEQ/L (98-107) Estimat Glomerular Filtration Rate 7 ML/MIN (>89) 6 ML/MIN (>89) White Blood Count 16.9 TH/MM3 (4.0-11.0) Red Blood Count 4.41 MIL/MM3 (4.50-5.90) Hemoglobin 12.3 GM/DL (13.0-17.0) Hematocrit 37.7 % (39.0-51.0) Red Cell Distribution Width 18.2 % (11.6-17.2) Alanine Aminotransferase (ALT/SGPT) 11 U/L (12-78) Laboratory Results Test 07/13/17 08:40 Cholesterol Level 67 MG/DL (120-200) HDL Cholesterol 31.8 MG/DL (40.0-60.0) Hemoglobin A1c 5.4 % (4.3-6.0) LDL Cholesterol 25 MG/DL (0-99) Triglycerides Level 50 MG/DL (42-150) Summary of Procedures None Imaging Last Impressions Chest X-Ray 07/13/17 0000 Signed Impressions: Service Date/Time: Thursday, July 13, 2017 16:01 - CONCLUSION: Moderate congestive failure Jay Redd MD FACR Pending results at discharge: No Medications # of Antipsychotic meds at D/C: 1 Appropriate >1 Antipsych meds?: 1 Approp Antipsych med options 1 - Minimum of three failed multiple trials of monotherapy. 2 - Documented plan to taper to monotherapy due to previous use of multiple meds OR cross-taper in progress at D/C. 3 - Documentation of augmentation of Clozapine. 4 - Justification other than those listed in allowable values 1-3, document here : Discharge Discharge Date: Jul 16, 2017 Discharge Diagnosis: (1) Adjustment disorder with depressed mood ICD Code: F43.21 - Adjustment disorder with depressed mood Pt Condition on Discharge: Fair Discharge Disposition: Disch to Another Hospital Discharge Instructions Diet Instructions: Renal Failure Diet Activities you can perform: Weight Bearing as [place] Scheduled Appointment: Appointment Date: Jul 16, 2017 Discharge Time > 30 minutes Mental Status Examination Appearance: Disheveled (Somewhat) Consciousness: Alert Orientation: x4 Motor Activity: Normal gait Speech: Unremarkable Language: Adequate Fund of Knowledge: Inadequate Attention and Concentration: Adequate Memory: Unremarkable Mood: Appropriate Affect: Sad Thought Process & Associations: Goal directed, Linear Thought Content: Appropriate Hallucination Type: None Delusion Type: None Suicidal Ideation: No Suicidal Plan: No Suicidal Intention: No Homicidal Ideation: No Homicidal Plan: No Homicidal Intention: No Insight: Fair Judgment: Impulsive Discharge/Advance Care Plan Health Problems: (1) Adjustment disorder with depressed mood Goals to promote your health * To prevent worsening of your condition and complications * To maintain your health at the optimal level Directions to meet your goals Take your medications as prescribed Follow your dietary instruction Follow activity as directed Keep your appointments as scheduled Take your immunizations and boosters as scheduled If your symptoms worsen call your PCP, if no PCP go to Urgent Care Center or Emergency Room For 12/11 questions related to your inpatient stay or results of tests pending at discharge, please contact Dr. Sarwat Meng at Smoking is Dangerous to Your Health. Avoid second hand smoking Sarwat Meng MD Jul 16, 2017 12:43
[2017-07-16 15:14] LABS: BICARBONATE 24.7 MEQ/L (21.0-32.0); CALCIUM 9.5 MG/DL (8.5-10.1); CREATININE 9.25 MG/DL (0.60-1.30)
[2017-07-16] MEDS ORDERED: ONDANSETRON HCL 4 MG/5 ML UDC PO ONE (16:15)
[2017-07-16] MEDS: ACETAMINOPHEN 325 MG TAB PO PRN (17:50)
[2017-07-16 18:32] VITALS: BP 123/77; PULSE 118; RESP 18; TEMP 98.1; O2SAT 91
[2017-07-16] MEDS: QUEtiapine FUMARATE 25 MG TAB PO SCH (20:26)
== END 2017-07-16 21:24 | disposition short-term general hospital (02) | DRG 881 ==
LOC: EDBD → H4EA 17:41
PROVIDERS: ADMIT Psychiatry & Neurology Psychiatry; ATTEND Psychiatry & Neurology Psychiatry
PROC: 5A1D70Z Performance of Urinary Filtration, Intermittent, Less than 6 Hours Per Day (ICD-10-PCS; principal; 2017-07-13)
DX: F43.21 Adjustment disorder with depressed mood (principal); I13.2 Hypertensive heart and chronic kidney disease with heart failure and with stage 5 chronic kidney disease, or end stage renal disease; N18.6 End stage renal disease; E87.5 Hyperkalemia; I48.91 Unspecified atrial fibrillation; E87.1 Hypo-osmolality and hyponatremia; J44.9 Chronic obstructive pulmonary disease, unspecified; R11.2 Nausea with vomiting, unspecified; R19.7 Diarrhea, unspecified; R26.81 Unsteadiness on feet; I50.9 Heart failure, unspecified; F31.9 Bipolar disorder, unspecified; G47.00 Insomnia, unspecified; F41.9 Anxiety disorder, unspecified; Z51.5 Encounter for palliative care; Z59.0 Homelessness; Z99.2 Dependence on renal dialysis; Z87.891 Personal history of nicotine dependence; Z91.15 Patient's noncompliance with renal dialysis; Z85.46 Personal history of malignant neoplasm of prostate; Z80.42 Family history of malignant neoplasm of prostate; Z79.899 Other long term (current) drug therapy; Z63.8 Other specified problems related to primary support group; Z87.01 Personal history of pneumonia (recurrent)
CPT/HCPCS: 36600; 71045; 80048; 80053; 80061; 80074; 82805; 83036; 83735; 83880; 84100; 85027; 90935; 93005; 94618; 94640; 94664; 96374; 96375; J1580; J1644; J2060; J2405; Q4081

== ENCOUNTER 2017-07-16 21:34 | Inpatient (IN) | payer MEDICARE, MEDICAID ==
[~2017-07-16] VITALS: Ht 177.8 cm; Wt 83.0 kg
[2017-07-16 19:35] VITALS: BP 121/69; PULSE 114; RESP 20; TEMP 97.8; O2SAT 93
[~2017-07-16 21:34] MED LIST: ASPI1CHW4 CHEW; CALC0.5C PO; DIPH25CA PO; LORA1TAB12 PO; METO50TA PO; PREV30CA36 PO; PSYLPOW4 PO; SEVEL800 PO; isosorbide
[2017-07-16 23:18] VITALS: O2SAT 95
[2017-07-16 23:45] VITALS: BP 110/55; PULSE 101; RESP 20; TEMP 98.5; O2SAT 81
[2017-07-16] MEDS ORDERED: SENNOSIDES 8.6 MG TAB PO PRN (23:45)
[2017-07-16] MEDS ORDERED: MAGNESIUM HYDROXIDE SUSP 30 ML CUP PO PRN (23:45)
[2017-07-16] MEDS ORDERED: BISACODYL 10 MG SUPP RECTAL PRN (23:45)
[2017-07-16] MEDS ORDERED: LACTULOSE SYRUP 20 GM/30 ML CUP PO PRN (23:45)
[2017-07-16] MEDS ORDERED: NALOXONE HCL 0.4 MG/ML AMP IV PUSH PRN (23:45)
[2017-07-16] MEDS ORDERED: SODIUM CHLORIDE 0.9% FLUSH 10 ML FLUSH IV FLUSH PRN (23:45)
[2017-07-17] MEDS ORDERED: SODIUM CHLOR 0.9% 1000 ML INJ 1,000 ML IV PRN (00:02)
[2017-07-17] MEDS ORDERED: SODIUM CHLOR 0.9% 1000 ML INJ 1,000 ML OTHER PRN ×2 (00:02)
[2017-07-17] MEDS ORDERED: GELATIN 12 MM/7 MM FOAM TOP PRN (00:15)
[2017-07-17] MEDS ORDERED: ONDANSETRON HCL 4 MG/2 ML VIAL IV PUSH PRN (00:15)
[2017-07-17] MEDS ORDERED: cloNIDine HCL 0.1 MG TAB PO PRN (00:15)
[2017-07-17] MEDS ORDERED: NITROGLYCERIN 0.4 MG SL 25 TABS/BTL SL PRN (00:15)
[2017-07-17] MEDS ORDERED: SODIUM CHLORIDE 0.9% FLUSH 10 ML FLUSH IV FLUSH PRN (00:15)
[2017-07-17] MEDS ORDERED: MANNITOL 12.5 GM/50 ML VIAL IV PRN (00:15)
[2017-07-17] MEDS: ACETAMINOPHEN 325 MG TAB PO PRN (03:04)
[2017-07-17 04:00] VITALS: BP 102/54; PULSE 97; RESP 18; TEMP 99; O2SAT 93
[2017-07-17 08:00] VITALS: BP 110/56; PULSE 115; RESP 20; TEMP 98.2; O2SAT 88
[2017-07-17] MEDS: ASPIRIN 81 MG CHEW TAB CHEW SCH (09:00)
[2017-07-17] MEDS: GENTAMICIN SULFATE 20 MG/2 ML VIAL OTHER PRN (09:05)
[2017-07-17] MEDS: HEPARIN SODIUM - IV 10,000 UNITS/10 ML VIAL PRN (09:05)
[2017-07-17] MEDS: diphenhydrAMINE HCL 25 MG CAP PO PRN ×3 (09:05→23:43)
[2017-07-17 12:00] VITALS: BP 98/57; PULSE 94; RESP 20; TEMP 98.4; O2SAT 88
[2017-07-17] MEDS: SEVELAMER CARBONATE 800 MG TAB PO SCH ×3 (12:00→18:20)
[2017-07-17] MEDS: DOCUSATE SODIUM 50 MG/SENNA 8.6 MG TAB PO SCH ×2 (13:07→21:00)
[2017-07-17] MEDS: METOPROLOL TARTRATE 50 MG TAB PO SCH ×2 (13:08→22:17)
[2017-07-17] MEDS: SODIUM CHLORIDE 0.9% FLUSH 10 ML FLUSH IV FLUSH SCH ×2 (13:08→21:00)
[2017-07-17] MEDS: HEPARIN SODIUM - SQ 10,000 UNITS/ML VIAL SQ SCH ×2 (13:09→21:00)
--- NOTE | 2017-07-17 14:38 | PD.CONS ---
HPI Service Nephrology Consult Requested By Dr. Rivera Reason for Consult End-stage renal disease Primary Care Physician Unknown History of Present Illness Patient is a 71-year-old black male with history of end-stage renal disease, bipolar disorder who had been admitted to the hospital he was in Psychiatry ros[facility], is being admitted to medical rosas and underwent hemodialysis earlier, he is threatening to leave AGAINST MEDICAL ADVICE, patient is homeless. Review of Systems Constitutional: DENIES: Diaphoretic episodes, Fatigue, Fever, Weight gain, Weight loss, Chills, Dizziness, Change in appetite, Night Sweats Psychiatric: COMPLAINS OF: Anxiety, Mood changes Past Family Social History Allergies: Coded Allergies: No Known Allergies (Verified Allergy, Unknown, 07/12/17) Past Medical History End-stage renal disease Hypertension Noncompliance Bipolar disorder Prostate cancer Past Surgical History AV fistula placement PermCath Tonsillectomy Reported Medications Reported Meds & Active Scripts Active Reported Psyllium Powder 100 % Pow 1 Packet PO TID PRN 1 rounded TEASPOON in 8 oz of liquid at the first sign of irregularity. Metoprolol Tartrate 50 Mg Tab 50 Mg PO BID Lorazepam 1 Mg Tab 1 Mg PO HS PRN Prevacid (Lansoprazole) 30 Mg Capdr 30 Mg PO DAILY [isosorbide] Diphenhydramine (Diphenhydramine HCl) 25 Mg Cap 25 Mg PO Q6H PRN Calcitriol 0.5 Mcg Cap 1 Mcg PO DAILY Aspirin 81 Low Dose (Aspirin) 81 Mg Chew 81 Mg CHEW DAILY Renvela (Sevelamer Carbonate) 800 Mg Tab 800 Mg PO TID Active Ordered Medications Current Medications Medications (Trade) Dose Ordered Sig/Leandro Route Start Time Stop Time Status Last Admin (NS Flush) 2 ml UNSCH PRN IV FLUSH 07/16/17 23:45 (NS Flush) 2 ml BID IV FLUSH 07/17/17 09:00 07/17/17 13:08 (Tylenol) 650 mg Q4H PRN PO 07/16/17 23:45 (Zofran Inj) 4 mg Q6H PRN IVP 07/16/17 23:45 (Heparin Inj) 5,000 units Q12H SQ 07/17/17 09:00 07/17/17 13:09 (Narcan Inj) 0.4 mg UNSCH PRN IV PUSH 07/16/17 23:45 (Faith-Colace) 1 tab BID PO 07/17/17 09:00 07/17/17 13:07 (Milk Of Magnesia Liq) 30 ml Q12H PRN PO 07/16/17 23:45 (Senokot) 17.2 mg Q12H PRN PO 07/16/17 23:45 (Dulcolax Supp) 10 mg DAILY PRN RECTAL 07/16/17 23:45 (Lactulose Liq) 30 ml DAILY PRN PO 07/16/17 23:45 (Aspirin Chew) 81 mg DAILY CHEW 07/17/17 09:00 07/17/17 09:00 (Lopressor) 50 mg BID PO 07/17/17 09:00 07/17/17 22:17 (Renvela) 800 mg TIDAC PO 07/17/17 08:00 07/17/17 18:20 Sodium Chloride 1,000 ml @ 0 mls/hr Q0M PRN OTHER 07/17/17 00:02 (Heparin Inj) 8,000 units UNSCH PRN IV FLUSH 07/17/17 00:15 Sodium Chloride 1,000 ml @ 200 mls/hr Q5H PRN IV 07/17/17 00:02 Sodium Chloride 1,000 ml @ 0 mls/hr Q0M PRN OTHER 07/17/17 00:02 (Mannitol Inj) 12.5 gm UNSCH PRN IV 07/17/17 00:15 Albumin Human 100 ml @ 60 mls/hr UNSCH PRN IV 07/17/17 00:15 (NS Flush) 5 ml UNSCH PRN IV FLUSH 07/17/17 00:15 (Heparin Inj) UNSCH PRN .XX 07/17/17 00:15 07/17/17 09:05 (Gentamicin Inj) 20 mg UNSCH PRN OTHER 07/17/17 00:15 07/17/17 09:05 (Zofran Inj) 4 mg UNSCH PRN IV PUSH 07/17/17 00:15 (Tylenol) 650 mg UNSCH PRN PO 07/17/17 00:15 07/17/17 03:04 (Benadryl) 25 mg UNSCH PRN PO 07/17/17 00:15 07/17/17 10:45 (Nitrostat Sl) 0.4 mg UNSCH PRN SL 07/17/17 00:15 (Catapres) 0.1 mg UNSCH PRN PO 07/17/17 00:15 (Gelfoam 12 Mm/7 Mm Top) 1 foam UNSCH PRN TOP 07/17/17 00:15 Family History He states his son lives with his in [place] Social History Denies smoking or alcohol Physical Exam Vital Signs Vital Signs Date Time Temp Pulse Resp B/P (MAP) Pulse Ox O2 Delivery O2 Flow Rate FiO2 07/17/17 12:00 98.4 94 20 98/57 (71) 88 07/17/17 08:00 Nasal Cannula 3.00 07/17/17 08:00 98.2 115 20 110/56 (74) 88 07/17/17 04:00 99.0 97 18 102/54 (70) 93 07/17/17 04:00 Nasal Cannula 3.00 07/17/17 00:00 Nasal Cannula 3.00 07/16/17 23:45 98.5 101 20 110/55 (73) 81 07/16/17 23:18 95 Nasal Cannula 2.00 07/16/17 19:35 97.8 114 20 121/69 (86) 93 Physical Exam GENERAL: Well-nourished, well-developed patient. SKIN: Warm and dry. HEAD: Normocephalic. EYES: No scleral icterus. No injection or drainage. NECK: Supple, trachea midline. No JVD or lymphadenopathy. CARDIOVASCULAR: irregular rhythm without murmurs, gallops, or rubs. RESPIRATORY: Breath sounds equal bilaterally. No accessory muscle use. GASTROINTESTINAL: Abdomen soft, non-tender, nondistended. EXTREMITIES: No cyanosis, or edema. NEUROLOGICAL: Awake, alert, and oriented x 3. Non-focal. Assessment and Plan Problem List: (1) ESRD (end stage renal disease) on dialysis ICD Codes: N18.6 - End stage renal disease; Z99.2 - Dependence on renal dialysis Plan: hemodialysis done UF 2.2 L tolerates it well dc plans per Primary team he is threatening to leave AMA (2) Hypertension ICD Codes: I10 - Essential (primary) hypertension Plan: Continue to monitor blood pressure (3) Adjustment disorder with depressed mood ICD Codes: F43.21 - Adjustment disorder with depressed mood Plan: Patient recently released by psychiatric (4) COPD (chronic obstructive pulmonary disease) ICD Codes: J44.9 - Chronic obstructive pulmonary disease, unspecified Plan: Continue to monitor Problem Qualifiers (1) Hypertension: Qualified Codes: I10 - Essential (primary) hypertension Nic Pinto MD Jul 17, 2017 14:38
[2017-07-17 16:00] VITALS: BP 109/62; PULSE 90; RESP 20; TEMP 98.9; O2SAT 87
--- NOTE | 2017-07-17 20:09 | HHI.HP ---
[facility] Unknown Admission Diagnosis Diagnoses: Chief Complaint: Mild shortness of breath. Travel History International Travel<30 Days: No Contact w/Intl Traveler <30 Da: No Traveled to Known Affected Are: No History of Present Illness This is a 71-year-old female -Malagasy male with past medical history significant for atrial fibrillation with RVR, end-stage renal disease on hemodialysis on a Saturday schedule, COPD, hypertension, CHF and prostate cancer who is currently homeless and was brought in to the hospital under a Rodriguez act for refusing to comply with clinical treatment for dialysis and transferred to inpatient psychiatry. Psychiatry consulted. The patient was admitted to the medical psychiatric unit and cared for by the psychiatrist and the hospitalist. The patient received medical care for his hemodialysis and as per discharge summary from previous hospitalization and psychiatry patient had several episodes of shortness of breath. Patient also had insomnia which was treated with Seroquel 25 mg at bedtime. Review of Systems As per HPI, other systems reviewed by me and negative. Past Family Social History Past Medical History End-stage renal disease on hemodialysis Saturday Atrial fibrillation with RVR Hypertension CHF COPD History of prostate cancer Past Surgical History Tonsillectomy AV fistula Reported Medications Reported Meds & Active Scripts Active Reported Psyllium Powder 100 % Pow 1 Packet PO TID PRN 1 rounded TEASPOON in 8 oz of liquid at the first sign of irregularity. Metoprolol Tartrate 50 Mg Tab 50 Mg PO BID Lorazepam 1 Mg Tab 1 Mg PO HS PRN Prevacid (Lansoprazole) 30 Mg Capdr 30 Mg PO DAILY [isosorbide] Diphenhydramine (Diphenhydramine HCl) 25 Mg Cap 25 Mg PO Q6H PRN Calcitriol 0.5 Mcg Cap 1 Mcg PO DAILY Aspirin 81 Low Dose (Aspirin) 81 Mg Chew 81 Mg CHEW DAILY Renvela (Sevelamer Carbonate) 800 Mg Tab 800 Mg PO TID Allergies: Coded Allergies: No Known Allergies (Verified Allergy, Unknown, 07/12/17) Active Ordered Medications Current Medications Medications (Trade) Dose Ordered Sig/Leandro Route Start Time Stop Time Status Last Admin (NS Flush) 2 ml UNSCH PRN IV FLUSH 07/16/17 23:45 (NS Flush) 2 ml BID IV FLUSH 07/17/17 09:00 07/17/17 13:08 (Tylenol) 650 mg Q4H PRN PO 07/16/17 23:45 (Zofran Inj) 4 mg Q6H PRN IVP 07/16/17 23:45 (Heparin Inj) 5,000 units Q12H SQ 07/17/17 09:00 07/17/17 13:09 (Narcan Inj) 0.4 mg UNSCH PRN IV PUSH 07/16/17 23:45 (Faith-Colace) 1 tab BID PO 07/17/17 09:00 07/17/17 13:07 (Milk Of Magnesia Liq) 30 ml Q12H PRN PO 07/16/17 23:45 (Senokot) 17.2 mg Q12H PRN PO 07/16/17 23:45 (Dulcolax Supp) 10 mg DAILY PRN RECTAL 07/16/17 23:45 (Lactulose Liq) 30 ml DAILY PRN PO 07/16/17 23:45 (Aspirin Chew) 81 mg DAILY CHEW 07/17/17 09:00 07/17/17 09:00 (Lopressor) 50 mg BID PO 07/17/17 09:00 07/17/17 13:08 (Renvela) 800 mg TIDAC PO 07/17/17 08:00 07/17/17 18:20 Sodium Chloride 1,000 ml @ 0 mls/hr Q0M PRN OTHER 07/17/17 00:02 (Heparin Inj) 8,000 units UNSCH PRN IV FLUSH 07/17/17 00:15 Sodium Chloride 1,000 ml @ 200 mls/hr Q5H PRN IV 07/17/17 00:02 Sodium Chloride 1,000 ml @ 0 mls/hr Q0M PRN OTHER 07/17/17 00:02 (Mannitol Inj) 12.5 gm UNSCH PRN IV 07/17/17 00:15 Albumin Human 100 ml @ 60 mls/hr UNSCH PRN IV 07/17/17 00:15 (NS Flush) 5 ml UNSCH PRN IV FLUSH 07/17/17 00:15 (Heparin Inj) UNSCH PRN .XX 07/17/17 00:15 07/17/17 09:05 (Gentamicin Inj) 20 mg UNSCH PRN OTHER 07/17/17 00:15 07/17/17 09:05 (Zofran Inj) 4 mg UNSCH PRN IV PUSH 07/17/17 00:15 (Tylenol) 650 mg UNSCH PRN PO 07/17/17 00:15 07/17/17 03:04 (Benadryl) 25 mg UNSCH PRN PO 07/17/17 00:15 07/17/17 10:45 (Nitrostat Sl) 0.4 mg UNSCH PRN SL 07/17/17 00:15 (Catapres) 0.1 mg UNSCH PRN PO 07/17/17 00:15 (Gelfoam 12 Mm/7 Mm Top) 1 foam UNSCH PRN TOP 07/17/17 00:15 Family History Father, , prostate cancer Mother, , brain and lung cancer Social History Patient reports a history of tobacco use of one pack per day for 40 years but quit 2-1/2 years ago. He denies any alcohol consumption. He denies any illicit drug use. Physical Exam Vital Signs Vital Signs Date Time Temp Pulse Resp B/P (MAP) Pulse Ox O2 Delivery O2 Flow Rate FiO2 07/17/17 16:00 98.9 90 20 109/62 (78) 87 07/17/17 12:00 98.4 94 20 98/57 (71) 88 07/17/17 08:00 Nasal Cannula 3.00 07/17/17 08:00 98.2 115 20 110/56 (74) 88 07/17/17 04:00 99.0 97 18 102/54 (70) 93 07/17/17 04:00 Nasal Cannula 3.00 07/17/17 00:00 Nasal Cannula 3.00 07/16/17 23:45 98.5 101 20 110/55 (73) 81 07/16/17 23:18 95 Nasal Cannula 2.00 Physical Exam GENERAL: This is a well-nourished, well-developed patient, in no apparent distress. SKIN: No rashes, ecchymoses or lesions. Cool and dry. HEAD: Atraumatic. Normocephalic. No temporal or scalp tenderness. EYES: Pupils equal round and reactive. Extraocular motions intact. No scleral icterus. No injection or drainage. ENT: Nose without bleeding, purulent drainage or septal hematoma. Throat without erythema, tonsillar hypertrophy or exudate. Uvula midline. Airway patent. NECK: Trachea midline. No JVD or lymphadenopathy. Supple, nontender, no meningeal signs. CARDIOVASCULAR: Regular rate and rhythm without murmurs, gallops, or rubs. RESPIRATORY: Clear to auscultation. Breath sounds equal bilaterally. No wheezes , rales, or rhonchi. GASTROINTESTINAL: Abdomen soft, non-tender, nondistended. No hepato-splenomegaly , or palpable masses. No guarding. MUSCULOSKELETAL: Extremities without clubbing, cyanosis, or edema. No joint tenderness, effusion, or edema noted. No calf tenderness. Negative Homans sign bilaterally. NEUROLOGICAL: Awake and alert. Cranial nerves II through XII intact. Motor and sensory grossly within normal limits. Five out of 5 muscle strength in all muscle groups. Normal speech. Caprini VTE Risk Assessment Caprini VTE Risk Assessment: Mod/High Risk (score >= 2) Caprini Risk Assessment Model Point Value = 1 Point Value = 2 Point Value = 3 Point Value = 5 Age 41-60 Minor surgery BMI > 25 kg/m2 Swollen legs Varicose veins or History of unexplained or recurrent spontaneous Oral contraceptives or hormone replacement Sepsis (< 1 month) Serious lung disease, including pneumonia (< 1 month) Abnormal pulmonary function Acute myocardial infarction Congestive heart failure (< 1 month) History of inflammatory bowel disease Medical patient at bed rest Age 61-74 Arthroscopic surgery Major open surgery (> 45 min) Laparoscopic surgery (> 45 min) Malignancy Confined to bed (> 72 hours) Immobilizing plaster cast Central venous access Age >= 75 History of VTE Family history of VTE Factor V Leiden Prothrombin [id number] Lupus anticoagulant Anticardiolipin antibodies Elevated serum homocysteine Heparin-induced thrombocytopenia Other congenital or acquired thrombophilia Stroke (< 1 month) Elective arthroplasty Hip, pelvis, or leg fracture Acute spinal cord injury (< 1 month) Prophylaxis Regimen Total Risk Factor Score Risk Level Prophylaxis Regimen 0-1 Low Early ambulation 2 Moderate Order ONE of the following: *Sequential Compression Device (SCD) *Heparin 5000 units SQ BID 3-4 Higher Order ONE of the following medications: *Heparin 5000 units SQ TID *Enoxaparin/Lovenox 40 mg SQ daily (WT < 150 kg, CrCl > 30 mL/min) *Enoxaparin/Lovenox 30 mg SQ daily (WT < 150 kg, CrCl > 10-29 mL/min) *Enoxaparin/Lovenox 30 mg SQ BID (WT < 150 kg, CrCl > 30 mL/min) AND/OR *Sequential Compression Device (SCD) 5 or more Highest Order ONE of the following medications: *Heparin 5000 units SQ TID (Preferred with Epidurals) *Enoxaparin/Lovenox 40 mg SQ daily (WT < 150 kg, CrCl > 30 mL/min) *Enoxaparin/Lovenox 30 mg SQ daily (WT < 150 kg, CrCl > 10-29 mL/min) *Enoxaparin/Lovenox 30 mg SQ BID (WT < 150 kg, CrCl > 30 mL/min) AND *Sequential Compression Device (SCD) Assessment and Plan Assessment and Plan 71-year-old male with past medical history significant for atrial fibrillation with RVR, end-stage renal disease on hemodialysis Saturday, COPD, hypertension, CHF and prostate cancer currently homeless who was brought in under Rodriguez act after patient refused to comply with critical treatment for dialysis and was transferred to inpatient psychiatry. Patient was treated in the medical psych unit and cleared by psychiatry. Patient was discharged to the medical floor for continued treatment of his hemodialysis, COPD. Depression Dialysis noncompliance -Status post management by psychiatry. Labeled as adjustment is disorder with depressed mood. The patient was not discharged on antidepressants. ESRD on HD MWF Missed dialysis appointment yesterday -Nephrology consulted -On a Saturday, Saturday, Saturday schedule. -Avoid nephrotoxic agents -Continue patient on home dose of Renvela Hyponatremia -Patient was hyponatremic on previous days. Hyponatremia now resolved. Atrial fibrillation with RVR -Continue on Metoprolol 50mg BID -[id number] score 3, patient on ASA only for anticoagulation. Recommend follow up with possum trapper as an outpatient at discharge. -continue to monitor HR CHF, not decompensated -recent hospitalization for fluid overload -Appears euvolemic at this time, continue to monitor fluid status -continue on BB Hypertension -Resume patient's home dose of metoprolol 50 mg twice a day -Continue to monitor BP and adjust treatment accordingly -Clonidine prn with parameters COPD, not in acute exacerbation ?Chronic respiratory insufficiency -Patient does not use oxygen at home -O2 sats 88% on RA. Currently requires supplemental oxygen to maintain appropriate O2 saturations. -Obtain CXR -Patient status post respiratory home oxygen walk test which he completed, recommendations were that the patient needs home O2. Hx of prostate cancer -chronic Chronic N/V -Patient reports extensive negative workup as an outpatient -Resume patient on previous dose of PPI and Carafate DVT prophylaxis -Patient is ambulatory on the unit Code Status Full code Discussed Condition With Patient, RN. Physician Certification 2 Midnight Certification Type: Admission for Inpatient Services Order for Inpatient Services The services are ordered in accordance with Medicare regulations or non- Medicare payer requirements, as applicable. In the case of services not specified as inpatient-only, they are appropriately provided as inpatient services in accordance with the 2-midnight benchmark. Estimated LOS (days): 2 days is the estimated time the patient will need to remain in the hospital, assuming treatment plan goals are met and no additional complications. Post-Hospital Plan: Not yet determined Lawrence Orourke MD Jul 17, 2017 20:08
[2017-07-17 20:15] VITALS: BP 105/71; PULSE 102; RESP 15; TEMP 99; O2SAT 92
[2017-07-17] MEDS ORDERED: guaiFENesin SOLUTION 200 MG/10 ML CUP PO ONE (23:45)
[2017-07-18] VITALS (10 sets, daily range): BP systolic 95–117; BP diastolic 51–70; PULSE 82–118; RESP 18–20; TEMP 98.1–99.4; O2SAT 91–96
--- NOTE | 2017-07-18 03:09 | HHI.PR ---
Subjective Remarks NOT SEEN Objective Vitals Vital Signs Date Time Temp Pulse Resp B/P (MAP) Pulse Ox O2 Delivery O2 Flow Rate FiO2 07/18/17 00:13 Nasal Cannula 3.00 07/18/17 00:09 99.4 107 18 100/63 (75) 91 07/17/17 21:23 Nasal Cannula 2.00 07/17/17 20:15 99.0 102 15 105/71 (82) 92 07/17/17 20:15 Nasal Cannula 3.00 07/17/17 16:00 98.9 90 20 109/62 (78) 87 07/17/17 12:00 98.4 94 20 98/57 (71) 88 07/17/17 08:00 Nasal Cannula 3.00 07/17/17 08:00 98.2 115 20 110/56 (74) 88 07/17/17 04:00 99.0 97 18 102/54 (70) 93 07/17/17 04:00 Nasal Cannula 3.00 I/O 07/17/17 07/17/17 07/17/17 07/18/17 07/18/17 07/18/17 07:00 15:00 23:00 07:00 15:00 23:00 Intake Total 360 ml 240 ml Output Total 0 ml 2200 ml Balance 360 ml -2200 ml 240 ml Intake Oral 360 ml 240 ml Output Urine Total 0 ml Hemodialysis 2200 ml # Voids 0 # Bowel Movements 1 0 Objective Remarks GENERAL: This is a well-nourished, well-developed patient, in no apparent distress. SKIN: No rashes, ecchymoses or lesions. Cool and dry. HEAD: Atraumatic. Normocephalic. No temporal or scalp tenderness. EYES: Pupils equal round and reactive. Extraocular motions intact. No scleral icterus. No injection or drainage. ENT: Nose without bleeding, purulent drainage or septal hematoma. Throat without erythema, tonsillar hypertrophy or exudate. Uvula midline. Airway patent. NECK: Trachea midline. No JVD or lymphadenopathy. Supple, nontender, no meningeal signs. CARDIOVASCULAR: Regular rate and rhythm without murmurs, gallops, or rubs. RESPIRATORY: Clear to auscultation. Breath sounds equal bilaterally. No wheezes , rales, or rhonchi. GASTROINTESTINAL: Abdomen soft, non-tender, nondistended. No hepato-splenomegaly , or palpable masses. No guarding. MUSCULOSKELETAL: Extremities without clubbing, cyanosis, or edema. No joint tenderness, effusion, or edema noted. No calf tenderness. Negative Homans sign bilaterally. NEUROLOGICAL: Awake and alert. Cranial nerves II through XII intact. Motor and sensory grossly within normal limits. Five out of 5 muscle strength in all muscle groups. Normal speech. A/P Problem List: (1) ESRD (end stage renal disease) on dialysis ICD Code: N18.6 - End stage renal disease; Z99.2 - Dependence on renal dialysis (2) COPD (chronic obstructive pulmonary disease) ICD Code: J44.9 - Chronic obstructive pulmonary disease, unspecified Assessment and Plan 71-year-old male with past medical history significant for atrial fibrillation with RVR, end-stage renal disease on hemodialysis Saturday, COPD, hypertension, CHF and prostate cancer currently homeless who was brought in under Rodriguez act after patient refused to comply with critical treatment for dialysis and was transferred to inpatient psychiatry. Patient was treated in the medical psych unit and cleared by psychiatry. Patient was discharged to the medical floor for continued treatment of his hemodialysis, COPD. Depression Dialysis noncompliance -Status post management by psychiatry. Labeled as adjustment disorder with depressed mood. The patient was not discharged on antidepressants. ESRD on HD MWF Missed dialysis appointment -Nephrology consulted -On a Saturday, Saturday, Saturday schedule. -Avoid nephrotoxic agents -Continue patient on home dose of Renvela Hyponatremia -Patient was hyponatremic on previous days. Hyponatremia now resolved. Atrial fibrillation with RVR -Continue on Metoprolol 50mg BID -[id number] score 3, patient on ASA only for anticoagulation. Recommend follow up with green marketing analyst as an outpatient at discharge. -continue to monitor HR CHF, not decompensated -recent hospitalization for fluid overload -Appears euvolemic at this time, continue to monitor fluid status -continue on BB Hypertension -Resume patient's home dose of metoprolol 50 mg twice a day -Continue to monitor BP and adjust treatment accordingly -Clonidine prn with parameters COPD, not in acute exacerbation ?Chronic respiratory insufficiency -Patient does not use oxygen at home -O2 sats 88% on RA. Currently requires supplemental oxygen to maintain appropriate O2 saturations. -Obtain CXR -Patient status post respiratory home oxygen walk test which he completed, recommendations were that the patient needs home O2. Hx of prostate cancer -chronic Chronic N/V -Patient reports extensive negative workup as an outpatient -Resume patient on previous dose of PPI and Carafate DVT prophylaxis -Patient is ambulatory on the unit Code Status Full code Soham Rivera MD Jul 18, 2017 03:09
[2017-07-18 08:37] LABS: AUTOMATED NEUTROPHIL # 7.7 TH/MM3 (1.8-7.7); BASOPHIL # 0.1 TH/MM3 (0-0.2); BASOPHIL % 1.2 % (0.0-2.0); EOSINOPHIL # 0.5 TH/MM3 (0-0.4); EOSINOPHIL % 4.6 % (0.0-4.0); HEMATOCRIT 35.9 % (39.0-51.0); HEMOGLOBIN 11.7 GM/DL (13.0-17.0); LYMPHOCYTE # 0.9 TH/MM3 (1.0-4.8); MEAN CORPUSCULAR HEMOGLOBIN 27.6 PG (27.0-34.0); MEAN CORPUSCULAR HGB CONC 32.5 % (32.0-36.0); MEAN PLATELET VOLUME 7.9 FL (7.0-11.0); MONO % 10.8 % (0.0-8.0); MONOCYTE # 1.1 TH/MM3 (0-0.9); NEUT % 74.4 % (16.0-70.0); PLATELET COUNT 292 TH/MM3 (150-450); RED BLOOD COUNT 4.23 MIL/MM3 (4.50-5.90); RED CELL DISTRIBUTION WIDTH 18.4 % (11.6-17.2); WHITE BLOOD COUNT 10.3 TH/MM3 (4.0-11.0)
[2017-07-18 08:51] LABS: BICARBONATE 28.1 MEQ/L (21.0-32.0); CALCIUM 9.1 MG/DL (8.5-10.1); CREATININE 8.31 MG/DL (0.60-1.30)
[2017-07-18] MEDS: SODIUM CHLORIDE 0.9% FLUSH 10 ML FLUSH IV FLUSH SCH ×2 (09:00→21:00)
[2017-07-18] MEDS: HEPARIN SODIUM - SQ 10,000 UNITS/ML VIAL SQ SCH ×3 (09:00→21:00)
[2017-07-18] MEDS: DOCUSATE SODIUM 50 MG/SENNA 8.6 MG TAB PO SCH ×2 (09:00→21:00)
[2017-07-18] MEDS: ACETAMINOPHEN 325 MG TAB PO PRN (09:16)
[2017-07-18] MEDS: SEVELAMER CARBONATE 800 MG TAB PO SCH ×3 (09:16→16:53)
[2017-07-18] MEDS: ASPIRIN 81 MG CHEW TAB CHEW SCH (09:17)
[2017-07-18] MEDS: METOPROLOL TARTRATE 50 MG TAB PO SCH ×2 (09:17→21:00)
--- NOTE | 2017-07-18 13:18 | HHI.PR ---
Subjective Remarks Follow-up A. fib. Patient denies any complaints no dizziness, chest pain, shortness of breath and palpitations. Patient was not allowed by his PCP to be on Coumadin results not known to him. He has been on aspirin for the last 8 years with no episodes of neurologic deficits. Discussed anticoagulation with novel agents, patient wants to talk to his PCP about it discussed with nursing Objective Vitals Vital Signs Date Time Temp Pulse Resp B/P (MAP) Pulse Ox O2 Delivery O2 Flow Rate FiO2 07/18/17 08:03 98.7 92 20 117/56 (76) 96 07/18/17 08:00 94 Nasal Cannula 3.00 07/18/17 03:56 98.3 97 20 107/70 (82) 94 07/18/17 00:13 Nasal Cannula 3.00 07/18/17 00:09 99.4 107 18 100/63 (75) 91 07/17/17 21:23 Nasal Cannula 2.00 07/17/17 20:15 99.0 102 15 105/71 (82) 92 07/17/17 20:15 Nasal Cannula 3.00 07/17/17 16:00 98.9 90 20 109/62 (78) 87 I/O 07/17/17 07/17/17 07/17/17 07/18/17 07/18/17 07/18/17 06:59 14:59 22:59 06:59 14:59 22:59 Intake Total 360 ml 240 ml 280 ml Output Total 0 ml 2200 ml 0 ml Balance 360 ml -2200 ml 240 ml 280 ml Intake Oral 360 ml 240 ml 280 ml Output Urine Total 0 ml 0 ml Hemodialysis 2200 ml # Voids 0 # Bowel Movements 1 0 1 Result Diagram: 07/18/17 0730 07/18/17 0730 Objective Remarks GENERAL: This is a well-nourished, well-developed patient, in no apparent distress. CARDIOVASCULAR: Irregularly irregular without murmurs, gallops, or rubs. RESPIRATORY: Clear to auscultation. Breath sounds equal bilaterally. No wheezes , rales, or rhonchi. GASTROINTESTINAL: Abdomen soft, non-tender, nondistended. No guarding. MUSCULOSKELETAL: Extremities without clubbing, cyanosis, or edema. No joint tenderness, effusion, or edema noted. No calf tenderness. Negative Homans sign bilaterally. NEUROLOGICAL: Awake and alert. Cranial nerves II through XII intact. Motor and sensory grossly within normal limits. Five out of 5 muscle strength in all muscle groups. Normal speech. Procedures none A/P Problem List: (1) ESRD (end stage renal disease) on dialysis ICD Code: N18.6 - End stage renal disease; Z99.2 - Dependence on renal dialysis (2) COPD (chronic obstructive pulmonary disease) ICD Code: J44.9 - Chronic obstructive pulmonary disease, unspecified Assessment and Plan 71-year-old male with past medical history significant for atrial fibrillation with RVR, end-stage renal disease on hemodialysis Saturday, COPD, hypertension, CHF and prostate cancer currently homeless who was brought in under [place] act after patient refused to comply with critical treatment for dialysis and was transferred to inpatient psychiatry. Patient was treated in the medical psych unit and cleared by psychiatry. Patient was discharged to the medical floor for continued treatment of his hemodialysis, COPD. Depression Dialysis noncompliance -Status post management by psychiatry. Labeled as adjustment disorder with depressed mood. ESRD on HD MWF Missed dialysis appointment -Nephrology consulted -On a Saturday, Saturday, Saturday schedule. -Avoid nephrotoxic agents -Continue patient on home dose of Renvela Hyponatremia -Patient was hyponatremic on previous days. Hyponatremia now resolved. Atrial fibrillation with CVR -Continue on Metoprolol 50mg BID -[id number] score 3, patient on ASA only for anticoagulation. Recommend follow up with radiation oncology therapist as an outpatient re novel agent -continue to monitor HR CHF, not decompensated -recent hospitalization for fluid overload -Appears euvolemic at this time, continue to monitor fluid status -continue on BB Hypertension -Resume patient's home dose of metoprolol 50 mg twice a day -Continue to monitor BP and adjust treatment accordingly -Clonidine prn with parameters COPD, not in acute exacerbation ?Chronic respiratory insufficiency -Patient does not use oxygen at home -O2 sats 88% on RA. Currently requires supplemental oxygen to maintain appropriate O2 saturations. -Obtain CXR -Patient status post respiratory home oxygen walk test which he completed, recommendations were that the patient needs home O2. Hx of prostate cancer -chronic Chronic N/V -Patient reports extensive negative workup as an outpatient -Resume patient on previous dose of PPI and Carafate DVT prophylaxis -Patient is ambulatory on the unit. Continue subcu heparin Soham Rivera MD Jul 18, 2017 13:18
--- NOTE | 2017-07-18 14:52 | HHI.NPPN ---
Subjective History of Present Illness Patient is 71-year-old homeless male ESRD who was [place] acted now transferred to medical floor Objective Data Data Vital Signs Date Time Temp Pulse Resp B/P (MAP) Pulse Ox O2 Delivery O2 Flow Rate FiO2 07/18/17 12:03 98.7 88 20 108/58 (75) 95 07/18/17 08:03 98.7 92 20 117/56 (76) 96 07/18/17 08:00 94 Nasal Cannula 3.00 07/18/17 03:56 98.3 97 20 107/70 (82) 94 07/18/17 00:13 Nasal Cannula 3.00 07/18/17 00:09 99.4 107 18 100/63 (75) 91 07/17/17 21:23 Nasal Cannula 2.00 07/17/17 20:15 99.0 102 15 105/71 (82) 92 07/17/17 20:15 Nasal Cannula 3.00 07/17/17 16:00 98.9 90 20 109/62 (78) 87 -: 07/18/17 0730 07/18/17 0730 Physical Exam General Appearance: Well Developed, No Acute Distress Neck Neck Exam: Neck Supple Pulmonary Resp Exam: Clear Bilaterally, Breath Sounds Equal Cardiology CV Exam: Arrhythmia Gastrointestinal/Abdomen GI Exam: Soft, Non-Tender, Bowel Sounds Present Extremeties Extremities Exam: No Edema Assessment/Plan Problem List: (1) ESRD (end stage renal disease) on dialysis ICD Codes: N18.6 - End stage renal disease; Z99.2 - Dependence on renal dialysis Plan: hemodialysis to continue Saturday, Saturday and Saturday History of A. fib (2) Hypertension ICD Codes: I10 - Essential (primary) hypertension Plan: Continue to monitor blood pressure (3) Adjustment disorder with depressed mood ICD Codes: F43.21 - Adjustment disorder with depressed mood Plan: Patient recently released by psychiatric (4) COPD (chronic obstructive pulmonary disease) ICD Codes: J44.9 - Chronic obstructive pulmonary disease, unspecified Plan: Continue to monitor Problem Qualifiers (1) Hypertension: Qualified Codes: I10 - Essential (primary) hypertension Nic Pinto MD Jul 18, 2017 14:52
[2017-07-18] MEDS ORDERED: CARA1TAB6 PO (17:59)
[2017-07-18] MEDS ORDERED: ZOLO50TA PO (17:59)
[2017-07-18] MEDS ORDERED: SERO25TA PO (17:59)
[2017-07-18] MEDS: SUCRALFATE 1 GM TAB PO SCH (22:00)
[2017-07-18] MEDS: QUEtiapine FUMARATE 25 MG TAB PO SCH (22:00)
[2017-07-18] MEDS: LORazepam 1 MG TAB PO PRN (22:47)
[2017-07-19 03:41] VITALS: PULSE 78
[2017-07-19 04:13] VITALS: BP 101/56; PULSE 113; RESP 18; TEMP 98.6; O2SAT 90
[2017-07-19] MEDS: SUCRALFATE 1 GM TAB PO SCH ×4 (08:00→20:52)
[2017-07-19] MEDS: SEVELAMER CARBONATE 800 MG TAB PO SCH ×3 (08:00→17:42)
[2017-07-19] MEDS: HEPARIN SODIUM - SQ 10,000 UNITS/ML VIAL SQ SCH ×2 (09:00→20:54)
[2017-07-19 09:14] VITALS: O2SAT 92
--- NOTE | 2017-07-19 10:50 | HHI.NPPN ---
Subjective History of Present Illness Patient is 71-year-old homeless male ESRD who was [place] acted now transferred to medical floor Objective Data Data Vital Signs Date Time Temp Pulse Resp B/P (MAP) Pulse Ox O2 Delivery O2 Flow Rate FiO2 07/19/17 09:14 92 Nasal Cannula 3.00 07/19/17 08:00 07/19/17 04:13 98.6 113 18 101/56 (71) 90 07/19/17 03:41 78 07/19/17 00:00 Nasal Cannula 3.00 07/18/17 23:53 98.1 118 18 95/51 (66) 92 07/18/17 23:48 82 07/18/17 20:28 98.9 96 20 102/55 (71) 07/18/17 20:00 Nasal Cannula 3.00 07/18/17 20:00 96 Nasal Cannula 3.00 07/18/17 16:03 98.2 104 20 111/62 (78) 96 07/18/17 12:03 98.7 88 20 108/58 (75) 95 07/18/17 12:00 Nasal Cannula 3.00 -: 07/18/17 0730 07/18/17 0730 Physical Exam General Appearance: Well Developed, No Acute Distress Neck Neck Exam: Neck Supple Pulmonary Resp Exam: Clear Bilaterally, Breath Sounds Equal Cardiology CV Exam: Arrhythmia Gastrointestinal/Abdomen GI Exam: Soft, Non-Tender, Bowel Sounds Present Extremeties Extremities Exam: No Edema Assessment/Plan Problem List: (1) ESRD (end stage renal disease) on dialysis ICD Codes: N18.6 - End stage renal disease; Z99.2 - Dependence on renal dialysis Plan: hemodialysis to continue Saturday, Saturday and Saturday Is seen during hemodialysis on 2K bath ultrafiltration 2 L tolerating it well Continue to observe Patient needs psychiatric social worker supervisor help as he is homeless History of A. fib (2) Hypertension ICD Codes: I10 - Essential (primary) hypertension Plan: Continue to monitor blood pressure (3) Adjustment disorder with depressed mood ICD Codes: F43.21 - Adjustment disorder with depressed mood Plan: Patient recently released by psychiatric (4) COPD (chronic obstructive pulmonary disease) ICD Codes: J44.9 - Chronic obstructive pulmonary disease, unspecified Plan: Continue to monitor Problem Qualifiers (1) Hypertension: Qualified Codes: I10 - Essential (primary) hypertension Nic Pinto MD Jul 19, 2017 10:50
[2017-07-19] MEDS: diphenhydrAMINE HCL 25 MG CAP PO PRN ×2 (11:10→20:59)
[2017-07-19] MEDS: HEPARIN SODIUM - IV 10,000 UNITS/10 ML VIAL PRN (11:10)
[2017-07-19] MEDS: GENTAMICIN SULFATE 20 MG/2 ML VIAL OTHER PRN (11:11)
[2017-07-19 12:00] VITALS: BP 108/68; PULSE 125; RESP 18; TEMP 99.8; O2SAT 95
[2017-07-19] MEDS: SERTRALINE HCL 50 MG TAB PO SCH (12:05)
[2017-07-19] MEDS: ASPIRIN 81 MG CHEW TAB CHEW SCH (12:06)
[2017-07-19] MEDS: PANTOPRAZOLE SOD 40 MG DELAYED RELEASE TAB PO SCH (12:06)
[2017-07-19] MEDS: DOCUSATE SODIUM 50 MG/SENNA 8.6 MG TAB PO SCH ×2 (12:06→20:53)
[2017-07-19] MEDS: METOPROLOL TARTRATE 50 MG TAB PO SCH ×2 (12:06→20:54)
[2017-07-19] MEDS: SODIUM CHLORIDE 0.9% FLUSH 10 ML FLUSH IV FLUSH SCH ×2 (12:07→20:53)
--- NOTE | 2017-07-19 13:26 | HHI.PR ---
Subjective Remarks Follow-up end-stage renal disease. Patient feeling good as he was not given breakfast prior to hemodialysis. According to hemodialysis nurse, patient became nauseous and vomited during last hemodialysis. He continues to require oxygen denies shortness of breath. Objective Vitals Vital Signs Date Time Temp Pulse Resp B/P (MAP) Pulse Ox O2 Delivery O2 Flow Rate FiO2 07/19/17 12:00 99.8 125 18 108/68 (81) 95 07/19/17 09:14 92 Nasal Cannula 3.00 07/19/17 08:00 07/19/17 08:00 Nasal Cannula 4.00 07/19/17 04:13 98.6 113 18 101/56 (71) 90 07/19/17 03:41 78 07/19/17 00:00 Nasal Cannula 3.00 07/18/17 23:53 98.1 118 18 95/51 (66) 92 07/18/17 23:48 82 07/18/17 20:28 98.9 96 20 102/55 (71) 07/18/17 20:00 Nasal Cannula 3.00 07/18/17 20:00 96 Nasal Cannula 3.00 07/18/17 16:03 98.2 104 20 111/62 (78) 96 I/O 07/18/17 07/18/17 07/18/17 07/19/17 07/19/17 07/19/17 07:00 15:00 23:00 07:00 15:00 23:00 Intake Total 280 ml 520 ml 240 ml Output Total 0 ml 0 ml 2000 ml Balance 280 ml 520 ml 240 ml -2000 ml Intake Oral 280 ml 520 ml 240 ml Output Urine Total 0 ml 0 ml Hemodialysis 2000 ml # Voids 4 # Bowel Movements 1 1 0 Result Diagram: 07/18/1730 07/18/17 0730 Objective Remarks GENERAL: This is a well-nourished, well-developed patient, in no apparent distress. CARDIOVASCULAR: Irregularly irregular without murmurs, gallops, or rubs. RESPIRATORY: Clear to auscultation. Decreased breath sounds equal bilaterally. No wheezes, rales, or rhonchi. GASTROINTESTINAL: Abdomen soft, non-tender, nondistended. No guarding. MUSCULOSKELETAL: Extremities without clubbing, cyanosis, or edema. No joint tenderness, effusion, or edema noted. No calf tenderness. Negative Homans sign bilaterally. NEUROLOGICAL: Awake and alert. Cranial nerves II through XII intact. Motor and sensory grossly within normal limits. Five out of 5 muscle strength in all muscle groups. Normal speech. Procedures none A/P Problem List: (1) ESRD (end stage renal disease) on dialysis ICD Code: N18.6 - End stage renal disease; Z99.2 - Dependence on renal dialysis (2) COPD (chronic obstructive pulmonary disease) ICD Code: J44.9 - Chronic obstructive pulmonary disease, unspecified Assessment and Plan 71-year-old male with past medical history significant for atrial fibrillation with RVR, end-stage renal disease on hemodialysis Saturday, COPD, hypertension, CHF and prostate cancer currently homeless who was brought in under [place] act after patient refused to comply with critical treatment for dialysis and was transferred to inpatient psychiatry. Patient was treated in the medical psych unit and cleared by psychiatry. Patient was discharged to the medical floor for continued treatment of his hemodialysis, COPD. Depression Dialysis noncompliance -Status post management by psychiatry. Labeled as adjustment disorder with depressed mood. ESRD on HD MWF Missed dialysis appointment -Nephrology consulted -On a Saturday, Saturday, Saturday schedule. -Avoid nephrotoxic agents -Continue patient on home dose of Renvela Hyponatremia -Patient was hyponatremic on previous days. Hyponatremia now resolved. Atrial fibrillation with RVR. Symptomatic patient did not receive Lopressor dose last night -Continue on Metoprolol 50mg BID -[id number] score 3, patient on ASA only for anticoagulation. Recommend follow up with associate business analyst as an outpatient re novel agent -continue to monitor HR CHF, not decompensated -recent hospitalization for fluid overload -Appears euvolemic at this time, continue to monitor fluid status -continue on BB. Check echo cardiac Hypertension -Resume patient's home dose of metoprolol 50 mg twice a day -Continue to monitor BP and adjust treatment accordingly -Clonidine prn with parameters COPD, not in acute exacerbation ?Chronic respiratory insufficiency -Patient does not use oxygen at home -O2 sats 88% on RA. Currently requires supplemental oxygen to maintain appropriate O2 saturations. -Patient status post respiratory home oxygen walk test which he completed, recommendations were that the patient needs home O2. Hx of prostate cancer -chronic Chronic N/V -Patient reports extensive negative workup as an outpatient -Resume patient on previous dose of PPI and Carafate DVT prophylaxis -Patient is ambulatory on the unit. Continue subcu heparin Soham Rivera MD Jul 19, 2017 13:26
[2017-07-19] MEDS: CALCITRIOL 0.25 MCG CAP PO SCH (17:46)
[2017-07-19] MEDS: CALAMINE/PRAMOXINE LOTION 180 ML BTL TOPICAL PRN (17:46)
[2017-07-19 20:00] VITALS: BP 101/58; PULSE 97; RESP 20; TEMP 99; O2SAT 94
[2017-07-19] MEDS: LORazepam 1 MG TAB PO PRN (20:52)
[2017-07-19] MEDS: QUEtiapine FUMARATE 25 MG TAB PO SCH (20:52)
[2017-07-19] MEDS: RESP: ALBUTEROL 0.63 MG/3 ML NEB (PRN) NEB (21:33)
[2017-07-19 21:36] VITALS: O2SAT 92
[2017-07-20] VITALS (7 sets, daily range): BP systolic 107–124; BP diastolic 57–67; PULSE 82–118; RESP 18–21; TEMP 98.2–99.4; O2SAT 72–98
[2017-07-20] MEDS: SUCRALFATE 1 GM TAB PO SCH ×4 (08:00→21:36)
[2017-07-20] MEDS: SEVELAMER CARBONATE 800 MG TAB PO SCH ×3 (08:00→18:10)
[2017-07-20] MEDS: HEPARIN SODIUM - SQ 10,000 UNITS/ML VIAL SQ SCH ×2 (09:00→21:33)
[2017-07-20] MEDS: SODIUM CHLORIDE 0.9% FLUSH 10 ML FLUSH IV FLUSH SCH ×2 (09:00→21:37)
[2017-07-20] MEDS: DOCUSATE SODIUM 50 MG/SENNA 8.6 MG TAB PO SCH ×2 (09:00→21:36)
--- NOTE | 2017-07-20 11:21 | HHI.NPPN ---
Subjective History of Present Illness Patient is 71-year-old homeless male ESRD who was [place] acted now transferred to medical floor Additional Remarks Patient is alert, complain of cough, no SOB, or chest pain. Objective Data Data Vital Signs Date Time Temp Pulse Resp B/P (MAP) Pulse Ox O2 Delivery O2 Flow Rate FiO2 07/20/17 08:00 98.2 118 20 107/58 (74) 92 07/20/17 04:00 99.4 116 20 121/67 (85) 72 07/20/17 04:00 Nasal Cannula 4.00 07/20/17 00:00 99.0 118 20 124/57 (79) 75 07/20/17 00:00 Nasal Cannula 4.00 07/19/17 21:36 92 Nasal Cannula 3.00 07/19/17 20:00 99.0 97 20 101/58 (72) 94 07/19/17 20:00 Nasal Cannula 4.00 07/19/17 12:00 99.8 125 18 108/68 (81) 95 -: 07/18/17 0730 07/18/17 0730 Physical Exam General Appearance: Well Developed, No Acute Distress Neck Neck Exam: Neck Supple Pulmonary Resp Exam: Breath Sounds Equal, Rhonchi, Sputum, Decreased Bases Cardiology CV Exam: Arrhythmia Gastrointestinal/Abdomen GI Exam: Soft, Non-Tender, Bowel Sounds Present Extremeties Extremities Exam: Trace Edema Neurologic Neuro Exam: Alert, Awake Assessment/Plan Problem List: (1) ESRD (end stage renal disease) on dialysis ICD Codes: N18.6 - End stage renal disease; Z99.2 - Dependence on renal dialysis Plan: hemodialysis to continue Saturday, Saturday and Saturday Patient needs social work manager help as he is homeless History of A. fib. HD done yesterday, tolerated well. Mucinex for cough and sputum. (2) Hypertension ICD Codes: I10 - Essential (primary) hypertension Plan: Continue to monitor blood pressure (3) Adjustment disorder with depressed mood ICD Codes: F43.21 - Adjustment disorder with depressed mood Plan: Patient recently released by psychiatric (4) COPD (chronic obstructive pulmonary disease) ICD Codes: J44.9 - Chronic obstructive pulmonary disease, unspecified Plan: Continue to monitor Problem Qualifiers (1) Hypertension: Qualified Codes: I10 - Essential (primary) hypertension Danni Dahl MD Jul 20, 2017 11:21
[2017-07-20] MEDS: ASPIRIN 81 MG CHEW TAB CHEW SCH (11:36)
[2017-07-20] MEDS: SERTRALINE HCL 50 MG TAB PO SCH (11:36)
[2017-07-20] MEDS: METOPROLOL TARTRATE 50 MG TAB PO SCH ×2 (11:36→21:36)
[2017-07-20] MEDS: PANTOPRAZOLE SOD 40 MG DELAYED RELEASE TAB PO SCH (11:37)
[2017-07-20] MEDS: guaiFENesin E.R. 600 MG TAB PO SCH ×2 (11:41→21:36)
--- NOTE | 2017-07-20 13:31 | HHI.PR ---
Subjective Remarks Follow-up hypoxia. Still on nasal cannula with good exercise tolerance. States he has anuric for 2 years. Discussed with nursing Objective Vitals Vital Signs Date Time Temp Pulse Resp B/P (MAP) Pulse Ox O2 Delivery O2 Flow Rate FiO2 07/20/17 12:00 98.2 114 18 113/57 (75) 98 07/20/17 08:00 98.2 118 20 107/58 (74) 92 07/20/17 04:00 99.4 116 20 121/67 (85) 72 07/20/17 04:00 Nasal Cannula 4.00 07/20/17 00:00 99.0 118 20 124/57 (79) 75 07/20/17 00:00 Nasal Cannula 4.00 07/19/17 21:36 92 Nasal Cannula 3.00 07/19/17 20:00 99.0 97 20 101/58 (72) 94 07/19/17 20:00 Nasal Cannula 4.00 I/O 07/19/17 07/19/17 07/19/17 07/20/17 07/20/17 07/20/17 06:59 14:59 22:59 06:59 14:59 22:59 Intake Total 240 ml Output Total 0 ml 2000 ml Balance 240 ml -2000 ml Intake Oral 240 ml Output Urine Total 0 ml Hemodialysis 2000 ml # Bowel Movements 0 Result Diagram: 07/18/17 0730 07/18/17 0730 Objective Remarks GENERAL: This is a well-nourished, well-developed patient, in no apparent distress on nasal cannula. CARDIOVASCULAR: Irregularly irregular without murmurs, gallops, or rubs. RESPIRATORY: Clear to auscultation. Decreased breath sounds equal bilaterally. No wheezes, rales, or rhonchi. GASTROINTESTINAL: Abdomen soft, non-tender, nondistended. No guarding. MUSCULOSKELETAL: Extremities without clubbing, cyanosis, or edema. No joint tenderness, effusion, or edema noted. No calf tenderness. Negative Homans sign bilaterally. NEUROLOGICAL: Awake and alert. Cranial nerves II through XII intact. Motor and sensory grossly within normal limits. Five out of 5 muscle strength in all muscle groups. Normal speech. Procedures none A/P Problem List: (1) ESRD (end stage renal disease) on dialysis ICD Code: N18.6 - End stage renal disease; Z99.2 - Dependence on renal dialysis (2) COPD (chronic obstructive pulmonary disease) ICD Code: J44.9 - Chronic obstructive pulmonary disease, unspecified Assessment and Plan 71-year-old male with past medical history significant for atrial fibrillation with RVR, end-stage renal disease on hemodialysis Saturday, COPD, hypertension, CHF and prostate cancer currently homeless who was brought in under [place] act after patient refused to comply with critical treatment for dialysis and was transferred to inpatient psychiatry. Patient was treated in the medical psych unit and cleared by psychiatry. Patient was discharged to the medical floor for continued treatment of his hemodialysis, COPD. Depression Dialysis noncompliance -Status post management by psychiatry. Labeled as adjustment disorder with depressed mood. ESRD on HD MWF Missed dialysis appointment -Nephrology consulted -On a Saturday, Saturday, Saturday schedule. -Avoid nephrotoxic agents -Continue patient on home dose of Renvela Hyponatremia -Patient was hyponatremic on previous days. Hyponatremia now resolved. Atrial fibrillation with CVR. Intermittent RVR with activity but patient is asymptomatic -Continue on Metoprolol 50mg BID -[id number] score 3, patient on ASA only for anticoagulation. Recommend follow up with fox farmer as an outpatient re novel agent -continue to monitor HR CHF, not decompensated -recent hospitalization for fluid overload -Appears euvolemic at this time, continue to monitor fluid status -continue on BB. Check echo Hypertension -Resume patient's home dose of metoprolol 50 mg twice a day -Continue to monitor BP and adjust treatment accordingly -Clonidine prn with parameters COPD, not in acute exacerbation ?Chronic respiratory insufficiency -Patient does not use oxygen at home -O2 sats 88% on RA. Currently requires supplemental oxygen to maintain appropriate O2 saturations. Repeat chest x-ray -Patient status post respiratory home oxygen walk test which he completed, recommendations were that the patient needs home O2. Hx of prostate cancer -Outpatient follow-up Chronic N/V -Patient reports extensive negative workup as an outpatient -Resume patient on previous dose of PPI and Carafate DVT prophylaxis -Patient is ambulatory on the unit. Continue subcu heparin Discharge Planning Patient medically cleared for discharge but no accepting facility Soham Rivera MD Jul 20, 2017 13:31
--- NOTE | 2017-07-20 16:40 | RADRPT ---
EXAM DATE/TIME: 07/20/2017 16:18 [facility] COMPARISON: CHEST SINGLE AP, July 13, 2017, 16:01. INDICATIONS : Cough and shortness of breath. MEDICAL HISTORY : Hypertension. Congestive heart failure. Chronic obstructive pulmonary disease. SURGICAL HISTORY : Dialysis catheter. ENCOUNTER: Subsequent ACUITY: 3 days PAIN SCORE: 0/10 LOCATION: Bilateral chest FINDINGS: Diffuse interstitial prominence and cardiomegaly. A dialysis catheter is noted from a left jugular ap proach and the tip overlies expected location of the right atrium. No effusions. CONCLUSION: Interstitial edema suspected. Kalen Baeza MD on July 20, 2017 at 16:37 Board Certified Radiologist. This report was verified electronically.
[2017-07-20] MEDS: BENZONATATE 100 MG CAP PO PRN (18:09)
[2017-07-20] MEDS: diphenhydrAMINE HCL 25 MG CAP PO PRN (18:15)
[2017-07-20] MEDS: QUEtiapine FUMARATE 25 MG TAB PO SCH (21:36)
[2017-07-20] MEDS: LORazepam 1 MG TAB PO PRN (21:36)
[2017-07-21] VITALS: BP 140/71; PULSE 95; RESP 17; TEMP 98.6; O2SAT 93
[2017-07-21] MEDS ORDERED: guaiFENesin/CODEINE SYRUP 200 MG/20 MG/10 ML CUP PO ONE (01:00)
[2017-07-21] MEDS: SUCRALFATE 1 GM TAB PO SCH ×4 (08:00→23:26)
[2017-07-21] MEDS: SEVELAMER CARBONATE 800 MG TAB PO SCH ×3 (08:00→16:55)
[2017-07-21] MEDS: PANTOPRAZOLE SOD 40 MG DELAYED RELEASE TAB PO SCH (08:56)
[2017-07-21] MEDS: DOCUSATE SODIUM 50 MG/SENNA 8.6 MG TAB PO SCH ×2 (08:56→21:00)
[2017-07-21] MEDS: HEPARIN SODIUM - SQ 10,000 UNITS/ML VIAL SQ SCH ×2 (08:56→21:00)
[2017-07-21] MEDS: guaiFENesin E.R. 600 MG TAB PO SCH ×2 (08:56→23:26)
[2017-07-21] MEDS: ASPIRIN 81 MG CHEW TAB CHEW SCH (08:56)
[2017-07-21] MEDS: METOPROLOL TARTRATE 50 MG TAB PO SCH ×2 (08:56→23:26)
[2017-07-21] MEDS: SERTRALINE HCL 50 MG TAB PO SCH (08:56)
[2017-07-21] MEDS: SODIUM CHLORIDE 0.9% FLUSH 10 ML FLUSH IV FLUSH SCH ×2 (08:56→23:26)
--- NOTE | 2017-07-21 10:45 | HHI.PR ---
Subjective Remarks Follow-up end-stage renal disease. Patient requesting cough medicine denies cough. He has been refusing nursing care discussed with nursing Objective Vitals Vital Signs Date Time Temp Pulse Resp B/P (MAP) Pulse Ox O2 Delivery O2 Flow Rate FiO2 07/21/17 00:00 98.6 95 17 140/71 (94) 93 07/20/17 21:42 94 Nasal Cannula 3.00 07/20/17 20:00 98.2 82 18 113/62 (79) 93 07/20/17 16:02 98.2 86 21 93 07/20/17 12:00 98.2 114 18 113/57 (75) 98 I/O 07/20/17 07/20/17 07/20/17 07/21/17 07/21/17 07/21/17 07:00 15:00 23:00 07:00 15:00 23:00 Intake Total 720 ml 240 ml Output Total 200 ml Balance 720 ml 40 ml Intake Oral 720 ml 240 ml Output Urine Total 200 ml # Voids 3 # Bowel Movements 1 0 Result Diagram: 07/18/17 0730 07/18/17 0730 Imaging Last Impressions Chest X-Ray 07/20/17 0000 Signed Impressions: Service Date/Time: Thursday, July 20, 2017 16:18 - CONCLUSION: Interstitial edema suspected. Kalen Baeza MD Objective Remarks GENERAL: This is a well-nourished, well-developed patient, in no apparent distress on nasal cannula. CARDIOVASCULAR: Irregularly irregular without murmurs, gallops, or rubs. RESPIRATORY: Clear to auscultation. Decreased breath sounds equal bilaterally. No wheezes, rales, or rhonchi. GASTROINTESTINAL: Abdomen soft, non-tender, nondistended. No guarding. MUSCULOSKELETAL: Extremities without clubbing, cyanosis, or edema. No joint tenderness, effusion, or edema noted. No calf tenderness. Negative Homans sign bilaterally. NEUROLOGICAL: Awake and alert. Cranial nerves II through XII intact. Motor and sensory grossly within normal limits. Five out of 5 muscle strength in all muscle groups. Normal speech. Procedures none A/P Problem List: (1) ESRD (end stage renal disease) on dialysis ICD Code: N18.6 - End stage renal disease; Z99.2 - Dependence on renal dialysis (2) COPD (chronic obstructive pulmonary disease) ICD Code: J44.9 - Chronic obstructive pulmonary disease, unspecified Assessment and Plan 71-year-old male with past medical history significant for atrial fibrillation with RVR, end-stage renal disease on hemodialysis Saturday, COPD, hypertension, CHF and prostate cancer currently homeless who was brought in under [place] act after patient refused to comply with critical treatment for dialysis and was transferred to inpatient psychiatry. Patient was treated in the medical psych unit and cleared by psychiatry. Patient was discharged to the medical floor for continued treatment of his hemodialysis, COPD. Depression Dialysis noncompliance -Status post management by psychiatry. Labeled as adjustment disorder with depressed mood. ESRD on HD MWF Missed dialysis appointment -Nephrology consulted -On a Saturday, Saturday, Saturday schedule. -Avoid nephrotoxic agents -Continue patient on home dose of Renvela Hyponatremia -Patient was hyponatremic on previous days. Hyponatremia now resolved. Atrial fibrillation with CVR. Intermittent RVR with activity but patient is asymptomatic -Continue on Metoprolol 50mg BID -[id number] score 3, patient on ASA only for anticoagulation. Recommend follow up with tire changer as an outpatient re novel agent -continue to monitor HR CHF, not decompensated -recent hospitalization for fluid overload -Abnormal chest x-ray with interstitial edema appears euvolemic at this time , continue to monitor fluid status. Will discuss with nephrology to consider adjusting hemodialysis -continue on BB. Check echo Hypertension -Resume patient's home dose of metoprolol 50 mg twice a day -Continue to monitor BP and adjust treatment accordingly -Clonidine prn with parameters COPD, not in acute exacerbation ?Chronic respiratory insufficiency -Patient does not use oxygen at home -O2 sats 88% on RA. Currently requires supplemental oxygen to maintain appropriate O2 saturations. Repeat chest x-ray as above -Patient status post respiratory home oxygen walk test which he completed, recommendations were that the patient needs home O2. Hx of prostate cancer -Outpatient follow-up Chronic N/V -Patient reports extensive negative workup as an outpatient -Resume patient on previous dose of PPI and Carafate DVT prophylaxis -Patient is ambulatory on the unit. Continue subcu heparin Discharge Planning Patient medically cleared for discharge but no accepting facility Soham Rivera MD Jul 21, 2017 10:45
[2017-07-21 12:00] VITALS: BP 88/50; PULSE 108; RESP 22; TEMP 97.6; O2SAT 85
[2017-07-21] MEDS: BENZONATATE 100 MG CAP PO PRN (12:21)
[2017-07-21] MEDS: guaiFENesin/CODEINE SYRUP 200 MG/20 MG/10 ML CUP PO PRN (12:28)
[2017-07-21 13:39] VITALS: BP 105/57; PULSE 91; RESP 22; O2SAT 90
--- NOTE | 2017-07-21 14:33 | HHI.NPPN ---
Subjective History of Present Illness Patient is 71-year-old homeless male ESRD who was Rodriguez acted now transferred to medical floor Additional Remarks Patient is alert, sitting on chair, cough is better. Objective Data Data Vital Signs Date Time Temp Pulse Resp B/P (MAP) Pulse Ox O2 Delivery O2 Flow Rate FiO2 07/21/17 13:39 91 22 105/57 (73) 90 07/21/17 12:22 95 Nasal Cannula 4.00 07/21/17 12:00 97.6 108 22 88/50 (63) 85 07/21/17 11:28 Room Air 07/21/17 09:00 Nasal Cannula 2.00 07/21/17 00:00 98.6 95 17 140/71 (94) 93 07/20/17 21:42 94 Nasal Cannula 3.00 07/20/17 20:00 98.2 82 18 113/62 (79) 93 07/20/17 16:02 98.2 86 21 93 -: 07/18/17 0730 07/18/17 0730 Physical Exam General Appearance: Well Developed, No Acute Distress Neck Neck Exam: Neck Supple Pulmonary Resp Exam: Breath Sounds Equal, Rhonchi, Sputum, Decreased Bases Cardiology CV Exam: Arrhythmia Gastrointestinal/Abdomen GI Exam: Soft, Non-Tender, Bowel Sounds Present Extremeties Extremities Exam: Trace Edema Neurologic Neuro Exam: Alert, Awake Assessment/Plan Problem List: (1) ESRD (end stage renal disease) on dialysis ICD Codes: N18.6 - End stage renal disease; Z99.2 - Dependence on renal dialysis Plan: hemodialysis to continue Saturday, Saturday and Saturday Patient needs rn social services help as he is homeless History of A. fib. HD to continue MWF. Awaiting placement. (2) Hypertension ICD Codes: I10 - Essential (primary) hypertension Plan: Continue to monitor blood pressure (3) Adjustment disorder with depressed mood ICD Codes: F43.21 - Adjustment disorder with depressed mood Plan: Patient recently released by psychiatric (4) COPD (chronic obstructive pulmonary disease) ICD Codes: J44.9 - Chronic obstructive pulmonary disease, unspecified Plan: Continue to monitor Problem Qualifiers (1) Hypertension: Qualified Codes: I10 - Essential (primary) hypertension Danni Dahl MD Jul 21, 2017 14:33
[2017-07-21] MEDS: diphenhydrAMINE HCL 25 MG CAP PO PRN (15:11)
[2017-07-21 15:46] VITALS: BP 110/66; PULSE 110; RESP 20; TEMP 97.2; O2SAT 94
[2017-07-21] MEDS: ACETAMINOPHEN 325 MG TAB PO PRN (16:55)
[2017-07-21 17:51] VITALS: O2SAT 94
[2017-07-21 20:00] VITALS: BP 137/73; PULSE 117; RESP 21; TEMP 97.5; O2SAT 81
[2017-07-21] MEDS: QUEtiapine FUMARATE 25 MG TAB PO SCH (23:27)
[2017-07-22] VITALS (9 sets, daily range): BP systolic 97–137; BP diastolic 55–81; PULSE 83–105; RESP 16–20; TEMP 97.4–99.3; O2SAT 90–96
[2017-07-22] MEDS: guaiFENesin/CODEINE SYRUP 200 MG/20 MG/10 ML CUP PO PRN ×3 (00:40→20:44)
[2017-07-22] MEDS: ACETAMINOPHEN 325 MG TAB PO PRN (00:40)
[2017-07-22] MEDS: BENZONATATE 100 MG CAP PO PRN ×3 (00:40→20:45)
[2017-07-22] MEDS: diphenhydrAMINE HCL 25 MG CAP PO PRN ×2 (00:40→20:46)
[2017-07-22] MEDS: guaiFENesin E.R. 600 MG TAB PO SCH ×2 (08:17→20:45)
[2017-07-22] MEDS: ASPIRIN 81 MG CHEW TAB CHEW SCH (08:17)
[2017-07-22] MEDS: PANTOPRAZOLE SOD 40 MG DELAYED RELEASE TAB PO SCH (08:17)
[2017-07-22] MEDS: SUCRALFATE 1 GM TAB PO SCH ×4 (08:17→20:45)
[2017-07-22] MEDS: SEVELAMER CARBONATE 800 MG TAB PO SCH ×3 (08:17→17:09)
[2017-07-22] MEDS: METOPROLOL TARTRATE 50 MG TAB PO SCH ×2 (08:17→20:46)
[2017-07-22] MEDS: SERTRALINE HCL 50 MG TAB PO SCH (08:17)
[2017-07-22] MEDS: SODIUM CHLORIDE 0.9% FLUSH 10 ML FLUSH IV FLUSH SCH ×2 (08:18→20:48)
[2017-07-22] MEDS: DOCUSATE SODIUM 50 MG/SENNA 8.6 MG TAB PO SCH ×2 (08:18→20:46)
[2017-07-22] MEDS: HEPARIN SODIUM - SQ 10,000 UNITS/ML VIAL SQ SCH ×2 (08:18→20:47)
[2017-07-22 08:31] LABS: AUTOMATED NEUTROPHIL # 6.2 TH/MM3 (1.8-7.7); BASOPHIL # 0.1 TH/MM3 (0-0.2); BASOPHIL % 1.2 % (0.0-2.0); EOSINOPHIL # 0.6 TH/MM3 (0-0.4); EOSINOPHIL % 6.8 % (0.0-4.0); HEMATOCRIT 34.7 % (39.0-51.0); HEMOGLOBIN 11.2 GM/DL (13.0-17.0); LYMPH % 10.2 % (9.0-44.0); LYMPHOCYTE # 0.9 TH/MM3 (1.0-4.8); MEAN CELL VOLUME 83.5 FL (80.0-100.0); MEAN CORPUSCULAR HGB CONC 32.4 % (32.0-36.0); MEAN PLATELET VOLUME 7.4 FL (7.0-11.0); MONO % 10.3 % (0.0-8.0); MONOCYTE # 0.9 TH/MM3 (0-0.9); NEUT % 71.5 % (16.0-70.0); PLATELET COUNT 295 TH/MM3 (150-450); RED BLOOD COUNT 4.16 MIL/MM3 (4.50-5.90); RED CELL DISTRIBUTION WIDTH 18.6 % (11.6-17.2); WHITE BLOOD COUNT 8.7 TH/MM3 (4.0-11.0)
[2017-07-22 08:49] LABS: BICARBONATE 29.3 MEQ/L (21.0-32.0); CALCIUM 9.1 MG/DL (8.5-10.1); MAGNESIUM 2.4 MG/DL (1.5-2.5)
[2017-07-22 08:55] LABS: CREATININE 12.5 MG/DL (0.60-1.30)
--- NOTE | 2017-07-22 11:26 | HHI.PR ---
Subjective Remarks Follow-up end-stage renal disease. Patient refused to have hemodialysis without breakfast. Discussed with nephrology will reschedule patient in the afternoon and also adjust hemodialysis because of persistent hypoxia likely secondary to interstitial edema Objective Vitals Vital Signs Date Time Temp Pulse Resp B/P (MAP) Pulse Ox O2 Delivery O2 Flow Rate FiO2 07/22/17 09:48 Nasal Cannula 3.00 07/22/17 08:04 98.4 83 18 110/61 (77) 91 07/22/17 04:00 98.4 86 20 97/55 (69) 93 07/22/17 00:00 98.1 92 20 137/81 (99) 95 07/21/17 23:30 Nasal Cannula 3.00 07/21/17 20:00 97.5 117 21 137/73 (94) 81 07/21/17 17:51 94 Nasal Cannula 3.00 07/21/17 16:20 Nasal Cannula 3.00 07/21/17 15:46 97.2 110 20 110/66 (81) 94 07/21/17 13:39 91 22 105/57 (73) 90 07/21/17 12:22 95 Nasal Cannula 4.00 07/21/17 12:00 97.6 108 22 88/50 (63) 85 07/21/17 11:28 Room Air I/O 07/21/17 07/21/17 07/21/17 07/22/17 07/22/17 07/22/17 07:00 15:00 23:00 07:00 15:00 23:00 Intake Total 240 ml 100 ml Output Total 200 ml 200 ml Balance 40 ml -100 ml Intake Oral 240 ml 100 ml Output Urine Total 200 ml 200 ml # Voids 3 3 # Bowel Movements 0 0 Result Diagram: 07/22/17 0815 07/22/17 0815 Imaging Last Impressions Chest X-Ray 07/20/17 0000 Signed Impressions: Service Date/Time: Thursday, July 20, 2017 16:18 - CONCLUSION: Interstitial edema suspected. Kalen Baeza MD Objective Remarks GENERAL: This is a well-nourished, well-developed patient, in no apparent distress on nasal cannula. CARDIOVASCULAR: Irregularly irregular without murmurs, gallops, or rubs. RESPIRATORY: Clear to auscultation. Decreased breath sounds equal bilaterally. No wheezes, rales, or rhonchi. GASTROINTESTINAL: Abdomen soft, non-tender, nondistended. No guarding. MUSCULOSKELETAL: Extremities without clubbing, cyanosis, or edema. No joint tenderness, effusion, or edema noted. No calf tenderness. Negative Homans sign bilaterally. NEUROLOGICAL: Awake and alert. Cranial nerves II through XII intact. Motor and sensory grossly within normal limits. Five out of 5 muscle strength in all muscle groups. Normal speech. Procedures none A/P Problem List: (1) ESRD (end stage renal disease) on dialysis ICD Code: N18.6 - End stage renal disease; Z99.2 - Dependence on renal dialysis (2) COPD (chronic obstructive pulmonary disease) ICD Code: J44.9 - Chronic obstructive pulmonary disease, unspecified Assessment and Plan 71-year-old male with past medical history significant for atrial fibrillation with RVR, end-stage renal disease on hemodialysis Saturday, COPD, hypertension, CHF and prostate cancer currently homeless who was brought in under Rodriguez act after patient refused to comply with critical treatment for dialysis and was transferred to inpatient psychiatry. Patient was treated in the medical psych unit and cleared by psychiatry. Patient was discharged to the medical floor for continued treatment of his hemodialysis, COPD. Depression Dialysis noncompliance -Status post management by psychiatry. Labeled as adjustment disorder with depressed mood. ESRD on HD MWF Missed dialysis appointment -Nephrology consulted -On a Saturday, Saturday, Saturday schedule. -Avoid nephrotoxic agents -Continue patient on home dose of Renvela Hyponatremia -resolved. Atrial fibrillation with CVR. Intermittent RVR with activity but patient is asymptomatic -Continue on Metoprolol 50mg BID -[id number] score 3, patient on ASA only for anticoagulation. Recommend follow up with evaporator repairer as an outpatient re novel agent -continue to monitor HR CHF, not decompensated -recent hospitalization for fluid overload -Abnormal chest x-ray with interstitial edema appears euvolemic at this time , continue to monitor fluid status. Discussed with nephrology to consider adjusting hemodialysis -continue on BB. Follow-up echo Hypertension -Resume patient's home dose of metoprolol 50 mg twice a day -Continue to monitor BP and adjust treatment accordingly -Clonidine prn with parameters COPD, not in acute exacerbation ?Chronic respiratory insufficiency -Patient does not use oxygen at home -O2 sats 88% on RA. Currently requires supplemental oxygen to maintain appropriate O2 saturations. Repeat chest x-ray as above -Patient status post respiratory home oxygen walk test which he completed, recommendations were that the patient needs home O2. Hx of prostate cancer -Outpatient follow-up Chronic N/V -Patient reports extensive negative workup as an outpatient -Resume patient on previous dose of PPI and Carafate DVT prophylaxis -Patient is ambulatory on the unit. Continue subcu heparin Discharge Planning Patient medically cleared for discharge but no accepting facility Soham Rivera MD Jul 22, 2017 11:26
[2017-07-22] MEDS: RESP: ALBUTEROL 0.63 MG/3 ML NEB (PRN) NEB (12:13)
[2017-07-22] MEDS: LORazepam 2 MG/ML VIAL IV PUSH PRN (13:10)
--- NOTE | 2017-07-22 14:33 | HHI.NPPN ---
Subjective History of Present Illness Patient is 71-year-old homeless male ESRD who was Rodriguez acted now transferred to medical floor Additional Remarks Patient is alert, sitting on chair, cough is better. Objective Data Data Vital Signs Date Time Temp Pulse Resp B/P (MAP) Pulse Ox O2 Delivery O2 Flow Rate FiO2 07/22/17 12:04 97.4 89 18 90 07/22/17 09:48 Nasal Cannula 3.00 07/22/17 08:04 98.4 83 18 110/61 (77) 91 07/22/17 04:00 98.4 86 20 97/55 (69) 93 07/22/17 00:00 98.1 92 20 137/81 (99) 95 07/21/17 23:30 Nasal Cannula 3.00 07/21/17 20:00 97.5 117 21 137/73 (94) 81 07/21/17 17:51 94 Nasal Cannula 3.00 07/21/17 16:20 Nasal Cannula 3.00 07/21/17 15:46 97.2 110 20 110/66 (81) 94 -: 07/22/17 0815 07/22/17 0815 Physical Exam General Appearance: Well Developed, No Acute Distress Neck Neck Exam: Neck Supple Pulmonary Resp Exam: Breath Sounds Equal, Rhonchi, Sputum, Decreased Bases Cardiology CV Exam: Arrhythmia Gastrointestinal/Abdomen GI Exam: Soft, Non-Tender, Bowel Sounds Present Extremeties Extremities Exam: Trace Edema Neurologic Neuro Exam: Alert, Awake Assessment/Plan Problem List: (1) ESRD (end stage renal disease) on dialysis ICD Codes: N18.6 - End stage renal disease; Z99.2 - Dependence on renal dialysis Plan: hemodialysis to continue Saturday, Saturday and Saturday Patient needs secondary social studies teacher help as he is homeless History of A. fib. HD to continue MWF. Awaiting placement. He is seen during HD trying UF, but was not compliant moving around, Ativan given (2) Hypertension ICD Codes: I10 - Essential (primary) hypertension Plan: Continue to monitor blood pressure (3) Adjustment disorder with depressed mood ICD Codes: F43.21 - Adjustment disorder with depressed mood Plan: Patient recently released by psychiatric (4) COPD (chronic obstructive pulmonary disease) ICD Codes: J44.9 - Chronic obstructive pulmonary disease, unspecified Plan: Continue to monitor Problem Qualifiers (1) Hypertension: Qualified Codes: I10 - Essential (primary) hypertension Nic Pinto MD Jul 22, 2017 14:33
[2017-07-22] MEDS: CALCITRIOL 0.25 MCG CAP PO SCH (14:56)
--- NOTE | 2017-07-22 19:42 | ECHRPT ---
Indication: Heart Failure CONCLUSIONS The left ventricular systolic function is low normal with an estimated ejection fraction in the rang e of 50- 55%. Normal left ventricular size. Mild concentric left ventricular hypertrophy. The right ventricle is moderately dilated. The left atrial size is [id number] dilated. The right atrial size is moderately dilated. Atrial septal aneurysm is present (benign finding). Mitral annular calcification is present. Calcification of both mitral valve leaflets. Wvnjr-oi-jdim mitral valve regurgitation. Aortic valve sclerosis is present. There is moderate tricuspid valve regurgitation. Mild pulmonary valve regurgitation. Moderate pulmonary hypertension. BP: 137 / 81 HR: 117 Rhythm: MEASUREMENTS (Male / Female) Normal Values Technical Quality:Fair 2D ECHO LV Diastolic Diameter PLAX 5.1 cm 4.2 - 5.9 / 3.9 - 5.3 cm LV Systolic Diameter PLAX 3.6 cm IVS Diastolic Thickness 1.2 cm 0.6 - 1.0 / 0.6 - 0.9 cm LVPW Diastolic Thickness 1.2 cm 0.6 - 1.0 / 0.6 - 0.9 cm LV Relative Wall Thickness 0.5 RV Internal Dim ED PLAX 4.6 cm LVOT Diameter 1.8 cm LA Systolic Diameter LX 5.0 cm 3.0 - 4.0 / 2.7 - 3.8 cm LA Volume Index 86.9 cm/m 16 - 28 cm/m M-MODE Aortic Root Diameter MM 3.1 cm LA Systolic Diameter MM 5.4 cm LA Ao Ratio MM 1.7 AV Cusp Separation MM 1.5 cm DOPPLER AV Peak Velocity 210.0 cm/s AV Peak Gradient 17.6 mmHg AV Mean Gradient 10.0 mmHg AV Velocity Time Integral 35.4 cm LVOT Peak Velocity 128.0 cm/s LVOT Peak Gradient 6.6 mmHg LVOT Velocity Time Integral 22.7 cm LVOT Cardiac Index 3270.4 cm/minm AV Area Cont Eq vti 1.6 cm AV Area Cont Eq pk 1.6 cm MV Peak Velocity 154.5 cm/s MV Peak Gradient 9.5 mmHg MV Mean Velocity 80.8 cm/s MV Mean Gradient 3.5 mmHg MV Area PHT 2.4 cm Mitral E Point Velocity 149.0 cm/s Mitral A Point Velocity 58.6 cm/s Mitral E to A Ratio 2.5 LV E' Lateral Velocity 9.3 cm/s Mitral E to LV E' Lateral Ratio 16.1 LV E' Septal Velocity 8.7 cm/s Mitral E to LV E' Septal Ratio 17.1 TR Peak Velocity 373.0 cm/s TR Peak Gradient 55.7 mmHg Right Atrial Pressure 10.0 mmHg Pulmonary Artery Systolic Pressu 65.7 mmHg Right Ventricular Systolic Press 65.7 mmHg FINDINGS LEFT VENTRICLE The left ventricular systolic function is low normal with an estimated ejection fraction in the rang e of 50- 55%. Normal left ventricular size. Mild concentric left ventricular hypertrophy. RIGHT VENTRICLE The right ventricle is moderately dilated. LEFT ATRIUM The left atrial size is xmbs-ui-nbyphrusbl dilated. RIGHT ATRIUM The right atrial size is moderately dilated. ATRIAL SEPTUM Atrial septal aneurysm is present (benign finding). AORTA The aortic root and proximal ascending aorta are normal in size on limited imaging. MITRAL VALVE Mitral annular calcification is present. Calcification of both mitral valve leaflets. Jfvtk-[id number] mitral valve regurgitation. AORTIC VALVE Trileaflet aortic valve. Aortic valve sclerosis is present. TRICUSPID VALVE Structurally normal tricuspid valve. There is moderate tricuspid valve regurgitation. PULMONARY VALVE Mild pulmonary valve regurgitation. VESSELS The inferior vena cava is normal in size. PERICARDIUM No pericardial effusion. Marvel Edwards MD, FACC (Electronically Signed) Final Date:22 July 2017 19:41
[2017-07-22] MEDS: LORazepam 1 MG TAB PO PRN (20:46)
[2017-07-22] MEDS: QUEtiapine FUMARATE 25 MG TAB PO SCH (20:46)
[2017-07-23] VITALS (9 sets, daily range): BP systolic 125–149; BP diastolic 65–77; PULSE 91–106; RESP 17–18; TEMP 98–99.5; O2SAT 85–99
[2017-07-23] MEDS: SODIUM CHLORIDE 0.9% FLUSH 10 ML FLUSH IV FLUSH SCH ×2 (07:24→20:33)
[2017-07-23] MEDS: SEVELAMER CARBONATE 800 MG TAB PO SCH ×3 (08:42→16:54)
[2017-07-23] MEDS: SERTRALINE HCL 50 MG TAB PO SCH (08:42)
[2017-07-23] MEDS: METOPROLOL TARTRATE 50 MG TAB PO SCH ×2 (08:42→20:32)
[2017-07-23] MEDS: DOCUSATE SODIUM 50 MG/SENNA 8.6 MG TAB PO SCH ×2 (08:42→20:32)
[2017-07-23] MEDS: ASPIRIN 81 MG CHEW TAB CHEW SCH (08:42)
[2017-07-23] MEDS: PANTOPRAZOLE SOD 40 MG DELAYED RELEASE TAB PO SCH (08:42)
[2017-07-23] MEDS: HEPARIN SODIUM - SQ 10,000 UNITS/ML VIAL SQ SCH ×2 (08:42→20:33)
[2017-07-23] MEDS: guaiFENesin E.R. 600 MG TAB PO SCH ×2 (08:42→20:32)
[2017-07-23] MEDS: SUCRALFATE 1 GM TAB PO SCH ×4 (08:42→20:32)
--- NOTE | 2017-07-23 13:36 | HHI.PR ---
Subjective Remarks Follow-up end-stage renal disease. Patient anuric which is chronic. Denies shortness of breath still on nasal cannula. Discussed with nursing Objective Vitals Vital Signs Date Time Temp Pulse Resp B/P (MAP) Pulse Ox O2 Delivery O2 Flow Rate FiO2 07/23/17 08:00 98.0 106 17 125/75 (92) 85 07/23/17 05:25 99.2 105 18 137/65 (89) 98 07/23/17 04:00 Nasal Cannula 4.00 07/23/17 04:00 96 07/23/17 04:00 99.3 99 18 149/76 (100) 99 07/23/17 01:25 99.0 100 18 125/66 (85) 94 07/23/17 00:25 99.5 102 132/77 (95) 07/23/17 00:00 101 07/23/17 00:00 Nasal Cannula 4.00 07/22/17 23:29 98.0 100 18 128/55 (79) 92 07/22/17 23:25 99.3 94 16 127/81 (96) 96 07/22/17 21:36 93 Nasal Cannula 4.00 07/22/17 21:20 98.2 95 18 131/66 (87) 93 07/22/17 20:00 99.0 105 18 114/57 (76) 91 07/22/17 20:00 Nasal Cannula 4.00 I/O 07/22/17 07/22/17 07/22/17 07/23/17 07/23/17 07/23/17 07:00 15:00 23:00 07:00 15:00 23:00 Intake Total 100 ml 600 ml 240 ml Output Total 200 ml 0 ml Balance -100 ml 600 ml 240 ml Intake Oral 100 ml 600 ml 240 ml Output Urine Total 200 ml 0 ml # Voids 3 0 # Bowel Movements 0 0 Result Diagram: 07/22/1715 07/22/1715 Imaging Last Impressions Chest X-Ray 07/20/17 0000 Signed Impressions: Service Date/Time: Thursday, July 20, 2017 16:18 - CONCLUSION: Interstitial edema suspected. Kalen Baeza MD Objective Remarks GENERAL: This is a well-nourished, well-developed patient, in no apparent distress on nasal cannula. CARDIOVASCULAR: Irregularly irregular without murmurs, gallops, or rubs. RESPIRATORY: Clear to auscultation. Decreased breath sounds equal bilaterally. No wheezes, rales, or rhonchi. GASTROINTESTINAL: Abdomen soft, non-tender, nondistended. No guarding. MUSCULOSKELETAL: Extremities without clubbing, cyanosis, or edema. No joint tenderness, effusion, or edema noted. No calf tenderness. Negative Homans sign bilaterally. NEUROLOGICAL: Awake and alert. Cranial nerves II through XII intact. Motor and sensory grossly within normal limits. Five out of 5 muscle strength in all muscle groups. Normal speech. Procedures none A/P Problem List: (1) ESRD (end stage renal disease) on dialysis ICD Code: N18.6 - End stage renal disease; Z99.2 - Dependence on renal dialysis (2) COPD (chronic obstructive pulmonary disease) ICD Code: J44.9 - Chronic obstructive pulmonary disease, unspecified Assessment and Plan 71-year-old male with past medical history significant for atrial fibrillation with RVR, end-stage renal disease on hemodialysis Saturday, COPD, hypertension, CHF and prostate cancer currently homeless who was brought in under Rodriguez act after patient refused to comply with critical treatment for dialysis and was transferred to inpatient psychiatry. Patient was treated in the medical psych unit and cleared by psychiatry. Patient was discharged to the medical floor for continued treatment of his hemodialysis, COPD. Depression Dialysis noncompliance -Status post management by psychiatry. Labeled as adjustment disorder with depressed mood. ESRD on HD MWF Missed dialysis appointment -Nephrology consulted. Discussed with Dr. Pinto Creatinine is higher no signs of uremia -On a Saturday, Saturday, Saturday schedule. -Avoid nephrotoxic agents -Continue patient on home dose of Renvela Hyponatremia -resolved. Atrial fibrillation with CVR. Intermittent RVR with activity but patient is asymptomatic -Continue on Metoprolol 50mg BID -[id number] score 3, patient on ASA only for anticoagulation. Recommend follow up with wood and wood products labourer as an outpatient re novel agent -continue to monitor HR CHF, not decompensated -recent hospitalization for fluid overload -Abnormal chest x-ray with interstitial edema appears euvolemic at this time , continue to monitor fluid status. Discussed with nephrology to consider adjusting hemodialysis -continue on BB. Follow-up echo. EF of 50% LVH Hypertension -Resume patient's home dose of metoprolol 50 mg twice a day -Continue to monitor BP and adjust treatment accordingly -Clonidine prn with parameters COPD, not in acute exacerbation ?Chronic respiratory insufficiency -Patient does not use oxygen at home -O2 sats 88% on RA. Currently requires supplemental oxygen to maintain appropriate O2 saturations. Repeat chest x-ray as above -Patient status post respiratory home oxygen walk test which he completed, recommendations were that the patient needs home O2. Hx of prostate cancer -Outpatient follow-up Chronic N/V -Patient reports extensive negative workup as an outpatient -Resume patient on previous dose of PPI and Carafate DVT prophylaxis -Patient is ambulatory on the unit. Continue subcu heparin Discharge Planning Patient medically cleared for discharge but no accepting facility Soham Rivera MD Jul 23, 2017 13:36
--- NOTE | 2017-07-23 13:56 | HHI.NPPN ---
Subjective History of Present Illness Patient is 71-year-old homeless male ESRD who was Rodriguez acted now transferred to medical floor Additional Remarks Patient is alert, sitting on chair, cough is better. Objective Data Data Vital Signs Date Time Temp Pulse Resp B/P (MAP) Pulse Ox O2 Delivery O2 Flow Rate FiO2 07/23/17 08:00 98.0 106 17 125/75 (92) 85 07/23/17 05:25 99.2 105 18 137/65 (89) 98 07/23/17 04:00 Nasal Cannula 4.00 07/23/17 04:00 96 07/23/17 04:00 99.3 99 18 149/76 (100) 99 07/23/17 01:25 99.0 100 18 125/66 (85) 94 07/23/17 00:25 99.5 102 132/77 (95) 07/23/17 00:00 101 07/23/17 00:00 Nasal Cannula 4.00 07/22/17 23:29 98.0 100 18 128/55 (79) 92 07/22/17 23:25 99.3 94 16 127/81 (96) 96 07/22/17 21:36 93 Nasal Cannula 4.00 07/22/17 21:20 98.2 95 18 131/66 (87) 93 07/22/17 20:00 99.0 105 18 114/57 (76) 91 07/22/17 20:00 Nasal Cannula 4.00 -: 07/22/17 0815 07/22/17 0815 Physical Exam General Appearance: Well Developed, No Acute Distress Neck Neck Exam: Neck Supple Pulmonary Resp Exam: Breath Sounds Equal, Rhonchi, Sputum, Decreased Bases Cardiology CV Exam: Arrhythmia Gastrointestinal/Abdomen GI Exam: Soft, Non-Tender, Bowel Sounds Present Extremeties Extremities Exam: Trace Edema Neurologic Neuro Exam: Alert, Awake Assessment/Plan Problem List: (1) ESRD (end stage renal disease) on dialysis ICD Codes: N18.6 - End stage renal disease; Z99.2 - Dependence on renal dialysis Plan: hemodialysis to continue Saturday, Saturday and Saturday Patient needs web content & social media manager help as he is homeless History of A. fib. HD to continue MWF. Awaiting placement. he will need HD tomorrow d/w case preparer and liner difficult placement no one accept him at out pt clinic (2) Hypertension ICD Codes: I10 - Essential (primary) hypertension Plan: Continue to monitor blood pressure (3) Adjustment disorder with depressed mood ICD Codes: F43.21 - Adjustment disorder with depressed mood Plan: Patient recently released by psychiatric (4) COPD (chronic obstructive pulmonary disease) ICD Codes: J44.9 - Chronic obstructive pulmonary disease, unspecified Plan: Continue to monitor Problem Qualifiers (1) Hypertension: Qualified Codes: I10 - Essential (primary) hypertension Nic Pinto MD Jul 23, 2017 13:56
[2017-07-23] MEDS: guaiFENesin/CODEINE SYRUP 200 MG/20 MG/10 ML CUP PO PRN (16:54)
[2017-07-23] MEDS: QUEtiapine FUMARATE 25 MG TAB PO SCH (20:31)
[2017-07-24] MEDS: BENZONATATE 100 MG CAP PO PRN (00:53)
[2017-07-24] MEDS: diphenhydrAMINE HCL 25 MG CAP PO PRN ×2 (00:53→08:03)
[2017-07-24 03:56] VITALS: PULSE 92
[2017-07-24] MEDS: SODIUM CHLORIDE 0.9% FLUSH 10 ML FLUSH IV FLUSH SCH ×2 (07:22→20:09)
[2017-07-24 07:57] VITALS: BP 137/78; PULSE 90; RESP 17; TEMP 98.1; O2SAT 90
[2017-07-24] MEDS: SUCRALFATE 1 GM TAB PO SCH ×4 (07:58→20:07)
[2017-07-24] MEDS: SEVELAMER CARBONATE 800 MG TAB PO SCH ×3 (07:58→16:56)
[2017-07-24] MEDS: DOCUSATE SODIUM 50 MG/SENNA 8.6 MG TAB PO SCH ×2 (07:59→20:08)
[2017-07-24] MEDS: ASPIRIN 81 MG CHEW TAB CHEW SCH (07:59)
[2017-07-24] MEDS: HEPARIN SODIUM - SQ 10,000 UNITS/ML VIAL SQ SCH ×2 (07:59→20:08)
[2017-07-24] MEDS: guaiFENesin E.R. 600 MG TAB PO SCH ×2 (07:59→20:07)
[2017-07-24] MEDS: SERTRALINE HCL 50 MG TAB PO SCH (07:59)
[2017-07-24] MEDS: METOPROLOL TARTRATE 50 MG TAB PO SCH ×2 (07:59→20:07)
[2017-07-24] MEDS: PANTOPRAZOLE SOD 40 MG DELAYED RELEASE TAB PO SCH (07:59)
[2017-07-24] MEDS: ALBUMIN 25% INJ 100 ML IV PRN (11:23)
--- NOTE | 2017-07-24 11:55 | HHI.NPPN ---
Subjective History of Present Illness Patient is 71-year-old homeless male ESRD who was Rodriguez acted now transferred to medical floor Additional Remarks Patient is alert, sitting on chair, cough is better. Objective Data Data Vital Signs Date Time Temp Pulse Resp B/P (MAP) Pulse Ox O2 Delivery O2 Flow Rate FiO2 07/24/17 08:35 Nasal Cannula 4.00 07/24/17 07:57 98.1 90 17 137/78 (97) 90 07/24/17 04:00 Nasal Cannula 4.00 07/24/17 03:56 92 07/24/17 00:00 Nasal Cannula 4.00 07/23/17 23:51 91 07/23/17 20:00 Nasal Cannula 4.00 07/23/17 13:55 92 Nasal Cannula 4.00 -: 07/22/17 0815 07/22/17 0815 Physical Exam General Appearance: Well Developed, No Acute Distress Neck Neck Exam: Neck Supple Pulmonary Resp Exam: Breath Sounds Equal, Rhonchi, Sputum, Decreased Bases Cardiology CV Exam: Arrhythmia Gastrointestinal/Abdomen GI Exam: Soft, Non-Tender, Bowel Sounds Present Extremeties Extremities Exam: Trace Edema Neurologic Neuro Exam: Alert, Awake Assessment/Plan Problem List: (1) ESRD (end stage renal disease) on dialysis ICD Codes: N18.6 - End stage renal disease; Z99.2 - Dependence on renal dialysis Plan: hemodialysis to continue Saturday, Saturday and Saturday Patient needs social services counselor help as he is homeless History of A. fib. HD to continue MWF. Awaiting placement. He is seen during HD UF 2 L 3 K bath (2) Hypertension ICD Codes: I10 - Essential (primary) hypertension Plan: Continue to monitor blood pressure (3) Adjustment disorder with depressed mood ICD Codes: F43.21 - Adjustment disorder with depressed mood Plan: Patient recently released by psychiatric (4) COPD (chronic obstructive pulmonary disease) ICD Codes: J44.9 - Chronic obstructive pulmonary disease, unspecified Plan: Continue to monitor Problem Qualifiers (1) Hypertension: Qualified Codes: I10 - Essential (primary) hypertension Nic Pinto MD Jul 24, 2017 11:55
[2017-07-24] MEDS: CALCITRIOL 0.25 MCG CAP PO SCH (14:07)
--- NOTE | 2017-07-24 14:08 | HHI.PR ---
Subjective Remarks Follow-up end-stage renal disease. Patient has no new complaints. Still on nasal cannula. Tolerated hemodialysis this morning. States he prefers to have hemodialysis at 9:00 in the morning after having breakfast. Discussed with nursing Objective Vitals Vital Signs Date Time Temp Pulse Resp B/P (MAP) Pulse Ox O2 Delivery O2 Flow Rate FiO2 07/24/17 08:35 Nasal Cannula 4.00 07/24/17 07:57 98.1 90 17 137/78 (97) 90 07/24/17 04:00 Nasal Cannula 4.00 07/24/17 03:56 92 07/24/17 00:00 Nasal Cannula 4.00 07/23/17 23:51 91 07/23/17 20:00 Nasal Cannula 4.00 I/O 07/23/17 07/23/17 07/23/17 07/24/17 07/24/17 07/24/17 07:00 15:00 23:00 07:00 15:00 23:00 Intake Total 240 ml 700 ml 220 ml Output Total 0 ml 0 ml 2200 ml Balance 240 ml 700 ml 220 ml -2200 ml Intake Oral 240 ml 700 ml 220 ml Output Urine Total 0 ml 0 ml Hemodialysis 2200 ml # Voids 0 # Bowel Movements 0 0 Result Diagram: 07/22/17 0815 07/22/17 0815 Imaging Last Impressions Chest X-Ray 07/20/17 0000 Signed Impressions: Service Date/Time: Thursday, July 20, 2017 16:18 - CONCLUSION: Interstitial edema suspected. Kalen Baeza MD Objective Remarks GENERAL: This is a well-nourished, well-developed patient, in no apparent distress on nasal cannula. CARDIOVASCULAR: Irregularly irregular without murmurs, gallops, or rubs. RESPIRATORY: Clear to auscultation. Decreased breath sounds equal bilaterally. No wheezes, rales, or rhonchi. GASTROINTESTINAL: Abdomen soft, non-tender, nondistended. No guarding. MUSCULOSKELETAL: Extremities without clubbing, cyanosis, or edema. No joint tenderness, effusion, or edema noted. No calf tenderness. Negative Homans sign bilaterally. NEUROLOGICAL: Awake and alert. Cranial nerves II through XII intact. Motor and sensory grossly within normal limits. Five out of 5 muscle strength in all muscle groups. Normal speech. Procedures none A/P Problem List: (1) ESRD (end stage renal disease) on dialysis ICD Code: N18.6 - End stage renal disease; Z99.2 - Dependence on renal dialysis (2) COPD (chronic obstructive pulmonary disease) ICD Code: J44.9 - Chronic obstructive pulmonary disease, unspecified Assessment and Plan 71-year-old male with past medical history significant for atrial fibrillation with RVR, end-stage renal disease on hemodialysis Saturday, COPD, hypertension, CHF and prostate cancer currently homeless who was brought in under [employer] act after patient refused to comply with critical treatment for dialysis and was transferred to inpatient psychiatry. Patient was treated in the medical psych unit and cleared by psychiatry. Patient was discharged to the medical floor for continued treatment of his hemodialysis, COPD. Depression Dialysis noncompliance -Status post management by psychiatry. Labeled as adjustment disorder with depressed mood. ESRD on HD MWF Missed dialysis appointment -Nephrology consulted. Discussed with Dr. Pinto Creatinine is higher no signs of uremia repeat renal function in the morning -On a Saturday, Saturday, Saturday schedule. -Avoid nephrotoxic agents -Continue patient on home dose of Renvela Hyponatremia -resolved. Atrial fibrillation with CVR. Intermittent RVR with activity but patient is asymptomatic -Continue on Metoprolol 50mg BID -[id number] score 3, patient on ASA only for anticoagulation. Recommend follow up with casing wringer operator as an outpatient re novel agent -continue to monitor HR CHF, not decompensated -recent hospitalization for fluid overload -Abnormal chest x-ray with interstitial edema appears euvolemic at this time , continue to monitor fluid status. Discussed with nephrology to consider adjusting hemodialysis -continue on BB. Follow-up echo. EF of 50% LVH Hypertension -Resume patient's home dose of metoprolol 50 mg twice a day -Continue to monitor BP and adjust treatment accordingly -Clonidine prn with parameters COPD, not in acute exacerbation ?Chronic respiratory insufficiency -Patient does not use oxygen at home -O2 sats 88% on RA. Currently requires supplemental oxygen to maintain appropriate O2 saturations. Repeat chest x-ray as above -Patient status post respiratory home oxygen walk test which he completed, recommendations were that the patient needs home O2. Hx of prostate cancer -Outpatient follow-up Chronic N/V -Patient reports extensive negative workup as an outpatient -Resume patient on previous dose of PPI and Carafate DVT prophylaxis -Patient is ambulatory on the unit. Continue subcu heparin Discharge Planning Patient medically cleared for discharge but no accepting facility. Patient is also homeless Soham Rivera MD Jul 24, 2017 14:08
[2017-07-24 16:00] VITALS: BP 108/66; PULSE 110; RESP 20; TEMP 98; O2SAT 85
[2017-07-24 20:05] VITALS: BP 130/72; PULSE 90; RESP 14; TEMP 99; O2SAT 90
[2017-07-24] MEDS: QUEtiapine FUMARATE 25 MG TAB PO SCH (20:07)
[2017-07-25 00:45] VITALS: BP 106/56; PULSE 85; RESP 14; TEMP 98.3; O2SAT 90
[2017-07-25 03:41] VITALS: BP 103/58; PULSE 97; RESP 16; TEMP 99.1; O2SAT 91
[2017-07-25] MEDS: SEVELAMER CARBONATE 800 MG TAB PO SCH ×3 (08:00→18:07)
[2017-07-25 08:44] LABS: CALCIUM 9.3 MG/DL (8.5-10.1); CREATININE 9.28 MG/DL (0.60-1.30); MAGNESIUM 2.2 MG/DL (1.5-2.5)
[2017-07-25 08:57] VITALS: BP 109/55; PULSE 81; RESP 20; TEMP 98.1; O2SAT 91
[2017-07-25] MEDS: HEPARIN SODIUM - SQ 10,000 UNITS/ML VIAL SQ SCH ×2 (09:00→19:53)
[2017-07-25] MEDS: SUCRALFATE 1 GM TAB PO SCH ×4 (09:23→19:53)
[2017-07-25] MEDS: ASPIRIN 81 MG CHEW TAB CHEW SCH (09:23)
[2017-07-25] MEDS: guaiFENesin E.R. 600 MG TAB PO SCH ×2 (09:23→19:53)
[2017-07-25] MEDS: SERTRALINE HCL 50 MG TAB PO SCH (09:23)
[2017-07-25] MEDS: PANTOPRAZOLE SOD 40 MG DELAYED RELEASE TAB PO SCH (09:23)
[2017-07-25] MEDS: DOCUSATE SODIUM 50 MG/SENNA 8.6 MG TAB PO SCH ×2 (09:23→20:40)
[2017-07-25] MEDS: METOPROLOL TARTRATE 50 MG TAB PO SCH ×2 (09:23→19:54)
[2017-07-25] MEDS: SODIUM CHLORIDE 0.9% FLUSH 10 ML FLUSH IV FLUSH SCH ×2 (09:24→20:40)
[2017-07-25 12:16] VITALS: BP 100/56; PULSE 89; RESP 20; TEMP 98.4; O2SAT 93
[2017-07-25 16:29] VITALS: BP 100/57; PULSE 94; RESP 20; TEMP 97.8; O2SAT 91
--- NOTE | 2017-07-25 17:19 | HHI.PR ---
Subjective Remarks Resting comfortably in bed No event overnight Denied chest and or short of breath No fever or chills Objective Vitals Vital Signs Date Time Temp Pulse Resp B/P (MAP) Pulse Ox O2 Delivery O2 Flow Rate FiO2 07/25/17 16:29 97.8 94 20 100/57 (71) 91 07/25/17 12:16 98.4 89 20 100/56 (71) 93 07/25/17 08:57 98.1 81 20 109/55 (73) 91 07/25/17 08:00 Nasal Cannula 4.00 07/25/17 03:41 99.1 97 16 103/58 (73) 91 07/25/17 00:45 98.3 85 14 106/56 (73) 90 07/24/17 20:15 Nasal Cannula 4.00 07/24/17 20:05 99.0 90 14 130/72 (91) 90 I/O 07/24/17 07/24/17 07/24/17 07/25/17 07/25/17 07/25/17 07:00 15:00 23:00 07:00 15:00 23:00 Intake Total 220 ml 720 ml Output Total 2200 ml Balance 220 ml -2200 ml 720 ml Intake Oral 220 ml 720 ml Hemodialysis 2200 ml # Voids 1 # Bowel Movements 1 Result Diagram: 07/22/17 0815 07/25/17 0745 Objective Remarks GENERAL: This is a well-nourished, well-developed patient, in no apparent distress. CARDIOVASCULAR: RRR, no gallops, or rubs. RESPIRATORY: Fair air entry bilaterally. No W, R, or R GASTROINTESTINAL: Abdomen soft, non-tender, nondistended. Positive bowel sounds MUSCULOSKELETAL: Extremities without clubbing, cyanosis, or edema. Pedal pulses appreciated NEUROLOGICAL: Awake and alert. Moves all extremity. Normal speech.no focal neurological deficit Procedures none A/P Problem List: (1) ESRD (end stage renal disease) on dialysis ICD Code: N18.6 - End stage renal disease; Z99.2 - Dependence on renal dialysis (2) COPD (chronic obstructive pulmonary disease) ICD Code: J44.9 - Chronic obstructive pulmonary disease, unspecified Assessment and Plan 71-year-old male with past medical history significant for atrial fibrillation with RVR, end-stage renal disease on hemodialysis Saturday, COPD, hypertension, CHF and prostate cancer currently homeless who was brought in under [employer] act after patient refused to comply with critical treatment for dialysis and was transferred to inpatient psychiatry. Patient was treated in the medical psych unit and cleared by psychiatry. Patient was discharged to the medical floor for continued treatment of his hemodialysis, COPD. 07/25: Continue current care as below, continue efforts for placement, discussed with telehealth case manager and PT today Depression Dialysis noncompliance -Status post management by psychiatry. Labeled as adjustment disorder with depressed mood. ESRD on HD MWF Missed dialysis appointment -Nephrology consulted. Discussed with Dr. Pinto Creatinine is higher no signs of uremia repeat renal function in the morning -On a Saturday, Saturday, Saturday schedule. -Avoid nephrotoxic agents -Continue patient on home dose of Renvela Hyponatremia -resolved. Atrial fibrillation with CVR. Intermittent RVR with activity but patient is asymptomatic -Continue on Metoprolol 50mg BID -[id number] score 3, patient on ASA only for anticoagulation. Recommend follow up with aerodynamics engineer as an outpatient re novel agent -continue to monitor HR CHF, not decompensated -recent hospitalization for fluid overload -Abnormal chest x-ray with interstitial edema appears euvolemic at this time , continue to monitor fluid status. Discussed with nephrology to consider adjusting hemodialysis -continue on BB. Follow-up echo. EF of 50% LVH Hypertension -Resume patient's home dose of metoprolol 50 mg twice a day -Continue to monitor BP and adjust treatment accordingly -Clonidine prn with parameters COPD, not in acute exacerbation ?Chronic respiratory insufficiency -Patient does not use oxygen at home -O2 sats 88% on RA. Currently requires supplemental oxygen to maintain appropriate O2 saturations. Repeat chest x-ray as above -Patient status post respiratory home oxygen walk test which he completed, recommendations were that the patient needs home O2. Hx of prostate cancer -Outpatient follow-up Chronic N/V -Patient reports extensive negative workup as an outpatient -Resume patient on previous dose of PPI and Carafate DVT prophylaxis -Patient is ambulatory on the unit. Continue subcu heparin Discharge Planning Patient medically cleared for discharge but no accepting facility. Patient is also homeless Yany Jay MD Jul 25, 2017 17:19
[2017-07-25] MEDS: LORazepam 1 MG TAB PO PRN (19:54)
[2017-07-25] MEDS: QUEtiapine FUMARATE 25 MG TAB PO SCH (19:54)
[2017-07-25] MEDS: diphenhydrAMINE HCL 25 MG CAP PO PRN (19:58)
[2017-07-25 20:00] VITALS: BP 131/85; PULSE 101; RESP 21; TEMP 98.3; O2SAT 92
[2017-07-25] MEDS: RESP: ALBUTEROL 0.63 MG/3 ML NEB (PRN) NEB (22:05)
[2017-07-26] VITALS: BP 116/76; PULSE 110; RESP 21; TEMP 97.4; O2SAT 92
[2017-07-26] MEDS: diphenhydrAMINE HCL 25 MG CAP PO PRN ×2 (01:36→15:35)
[2017-07-26] MEDS: ACETAMINOPHEN 325 MG TAB PO PRN (01:39)
[2017-07-26 08:00] VITALS: BP 128/85; PULSE 89; RESP 22; TEMP 97.6; O2SAT 90
[2017-07-26] MEDS: DOCUSATE SODIUM 50 MG/SENNA 8.6 MG TAB PO SCH ×2 (09:00→21:17)
[2017-07-26] MEDS: SEVELAMER CARBONATE 800 MG TAB PO SCH ×3 (10:15→18:10)
[2017-07-26] MEDS: SUCRALFATE 1 GM TAB PO SCH ×4 (10:15→21:17)
[2017-07-26] MEDS: SERTRALINE HCL 50 MG TAB PO SCH (10:16)
[2017-07-26] MEDS: METOPROLOL TARTRATE 50 MG TAB PO SCH ×2 (10:16→21:00)
[2017-07-26] MEDS: guaiFENesin E.R. 600 MG TAB PO SCH ×2 (10:16→21:17)
[2017-07-26] MEDS: ASPIRIN 81 MG CHEW TAB CHEW SCH (10:16)
[2017-07-26] MEDS: PANTOPRAZOLE SOD 40 MG DELAYED RELEASE TAB PO SCH (10:16)
[2017-07-26] MEDS: HEPARIN SODIUM - SQ 10,000 UNITS/ML VIAL SQ SCH ×2 (10:17→21:00)
[2017-07-26] MEDS: SODIUM CHLORIDE 0.9% FLUSH 10 ML FLUSH IV FLUSH SCH ×2 (10:17→21:18)
[2017-07-26 12:00] VITALS: BP 109/63; PULSE 86; RESP 20; TEMP 97.7; O2SAT 96
[2017-07-26 14:14] VITALS: O2SAT 95
[2017-07-26] MEDS: GENTAMICIN SULFATE 20 MG/2 ML VIAL OTHER PRN (15:34)
[2017-07-26] MEDS: HEPARIN SODIUM - IV 10,000 UNITS/10 ML VIAL PRN (15:34)
--- NOTE | 2017-07-26 15:41 | HHI.NPPN ---
Subjective History of Present Illness Patient is 71-year-old homeless male ESRD who was [place] acted now transferred to medical floor Additional Remarks Patient is alert, sitting on chair, cough is better. Objective Data Data 07/26/17 07/27/17 19:00 07:00 Output Total 2000 ml Balance -2000 ml Hemodialysis 2000 ml Vital Signs Date Time Temp Pulse Resp B/P (MAP) Pulse Ox O2 Delivery O2 Flow Rate FiO2 07/26/17 14:14 95 Nasal Cannula 4.00 07/26/17 12:00 97.7 86 20 109/63 (78) 96 07/26/17 08:00 97.6 89 22 128/85 (99) 90 07/26/17 00:00 97.4 110 21 116/76 (89) 92 07/25/17 22:08 Nasal Cannula 4.00 07/25/17 21:30 Nasal Cannula 4.00 07/25/17 20:00 98.3 101 21 131/85 (100) 92 07/25/17 16:29 97.8 94 20 100/57 (71) 91 -: 07/22/17 0815 07/25/17 0745 Physical Exam General Appearance: Well Developed, No Acute Distress Neck Neck Exam: Neck Supple Pulmonary Resp Exam: Breath Sounds Equal, Rhonchi, Sputum, Decreased Bases Cardiology CV Exam: Arrhythmia Gastrointestinal/Abdomen GI Exam: Soft, Non-Tender, Bowel Sounds Present Extremeties Extremities Exam: Trace Edema Neurologic Neuro Exam: Alert, Awake Assessment/Plan Problem List: (1) ESRD (end stage renal disease) on dialysis ICD Codes: N18.6 - End stage renal disease; Z99.2 - Dependence on renal dialysis Plan: hemodialysis to continue Saturday, Saturday and Saturday Patient needs high school social studies tutor help as he is homeless History of A. fib. HD to continue MWF. Awaiting placement. He is seen during HD UF 2 L has anxiety attack Ativan ordered (2) Hypertension ICD Codes: I10 - Essential (primary) hypertension Plan: Continue to monitor blood pressure (3) Adjustment disorder with depressed mood ICD Codes: F43.21 - Adjustment disorder with depressed mood Plan: Patient recently released by psychiatric (4) COPD (chronic obstructive pulmonary disease) ICD Codes: J44.9 - Chronic obstructive pulmonary disease, unspecified Plan: Continue to monitor Problem Qualifiers (1) Hypertension: Qualified Codes: I10 - Essential (primary) hypertension Nic Pinto MD Jul 26, 2017 15:41
[2017-07-26] MEDS: CALCITRIOL 0.25 MCG CAP PO SCH (18:09)
--- NOTE | 2017-07-26 18:40 | HHI.PR ---
Subjective Remarks Patient stated his breathing okay Still working on placement Objective Vitals Vital Signs Date Time Temp Pulse Resp B/P (MAP) Pulse Ox O2 Delivery O2 Flow Rate FiO2 07/26/17 16:50 95 Nasal Cannula 4.00 07/26/17 14:14 95 Nasal Cannula 4.00 07/26/17 12:00 97.7 86 20 109/63 (78) 96 07/26/17 08:00 97.6 89 22 128/85 (99) 90 07/26/17 00:00 97.4 110 21 116/76 (89) 92 07/25/17 22:08 Nasal Cannula 4.00 07/25/17 21:30 Nasal Cannula 4.00 07/25/17 20:00 98.3 101 21 131/85 (100) 92 I/O 07/25/17 07/25/17 07/25/17 07/26/17 07/26/17 07/26/17 07:00 15:00 23:00 07:00 15:00 23:00 Intake Total 480 ml Output Total 2000 ml Balance -1520 ml Intake Oral 480 ml Hemodialysis 2000 ml # Voids 1 Result Diagram: 07/22/17 0815 07/25/17 0745 Objective Remarks GENERAL: This is a well-nourished, well-developed patient, in no apparent distress. CARDIOVASCULAR: RRR, no gallops, or rubs. RESPIRATORY: Fair air entry bilaterally. No W, R, or R GASTROINTESTINAL: Abdomen soft, non-tender, nondistended. Positive bowel sounds MUSCULOSKELETAL: Extremities without clubbing, cyanosis, or edema. Pedal pulses appreciated NEUROLOGICAL: Awake and alert. Moves all extremity. Normal speech.no focal neurological deficit Procedures none A/P Problem List: (1) ESRD (end stage renal disease) on dialysis ICD Code: N18.6 - End stage renal disease; Z99.2 - Dependence on renal dialysis (2) COPD (chronic obstructive pulmonary disease) ICD Code: J44.9 - Chronic obstructive pulmonary disease, unspecified Assessment and Plan 71-year-old male with past medical history significant for atrial fibrillation with RVR, end-stage renal disease on hemodialysis Saturday, COPD, hypertension, CHF and prostate cancer currently homeless who was brought in under [employer] act after patient refused to comply with critical treatment for dialysis and was transferred to inpatient psychiatry. Patient was treated in the medical psych unit and cleared by psychiatry. Patient was discharged to the medical floor for continued treatment of his hemodialysis, COPD. 07/25: Continue current care as below, continue efforts for placement, discussed with case picker and PT today 07/26: Placement process ongoing Depression Dialysis noncompliance -Status post management by psychiatry. Labeled as adjustment disorder with depressed mood. ESRD on HD MWF Missed dialysis appointment -Nephrology consulted. Discussed with Dr. Pinto Creatinine is higher no signs of uremia repeat renal function in the morning -On a Saturday, Saturday, Saturday schedule. -Avoid nephrotoxic agents -Continue patient on home dose of Renvela Hyponatremia -resolved. Atrial fibrillation with CVR. Intermittent RVR with activity but patient is asymptomatic -Continue on Metoprolol 50mg BID -[id number] score 3, patient on ASA only for anticoagulation. Recommend follow up with house mover helper as an outpatient re novel agent -continue to monitor HR CHF, not decompensated -recent hospitalization for fluid overload -Abnormal chest x-ray with interstitial edema appears euvolemic at this time , continue to monitor fluid status. Discussed with nephrology to consider adjusting hemodialysis -continue on BB. Follow-up echo. EF of 50% LVH Hypertension -Resume patient's home dose of metoprolol 50 mg twice a day -Continue to monitor BP and adjust treatment accordingly -Clonidine prn with parameters COPD, not in acute exacerbation ?Chronic respiratory insufficiency -Patient does not use oxygen at home -O2 sats 88% on RA. Currently requires supplemental oxygen to maintain appropriate O2 saturations. Repeat chest x-ray as above -Patient status post respiratory home oxygen walk test which he completed, recommendations were that the patient needs home O2. Hx of prostate cancer -Outpatient follow-up Chronic N/V -Patient reports extensive negative workup as an outpatient -Resume patient on previous dose of PPI and Carafate DVT prophylaxis -Patient is ambulatory on the unit. Continue subcu heparin Discharge Planning Patient medically cleared for discharge but no accepting facility. Patient is also homeless Yany Jay MD Jul 26, 2017 18:40
[2017-07-26 20:00] VITALS: BP 96/54; PULSE 95; RESP 21; TEMP 98.4; O2SAT 94
[2017-07-26] MEDS: LORazepam 1 MG TAB PO PRN (21:15)
[2017-07-26] MEDS: QUEtiapine FUMARATE 25 MG TAB PO SCH (21:16)
[2017-07-27] VITALS (8 sets, daily range): BP systolic 101–137; BP diastolic 56–78; PULSE 80–95; RESP 18; TEMP 98–98.5; O2SAT 90–97
[2017-07-27] MEDS: HEPARIN SODIUM - SQ 10,000 UNITS/ML VIAL SQ SCH ×2 (09:00→21:00)
[2017-07-27] MEDS: ASPIRIN 81 MG CHEW TAB CHEW SCH (09:17)
[2017-07-27] MEDS: SERTRALINE HCL 50 MG TAB PO SCH (09:17)
[2017-07-27] MEDS: SUCRALFATE 1 GM TAB PO SCH ×4 (09:17→21:58)
[2017-07-27] MEDS: DOCUSATE SODIUM 50 MG/SENNA 8.6 MG TAB PO SCH ×2 (09:17→21:58)
[2017-07-27] MEDS: SEVELAMER CARBONATE 800 MG TAB PO SCH ×3 (09:17→17:00)
[2017-07-27] MEDS: guaiFENesin E.R. 600 MG TAB PO SCH ×2 (09:17→21:58)
[2017-07-27] MEDS: PANTOPRAZOLE SOD 40 MG DELAYED RELEASE TAB PO SCH (09:17)
[2017-07-27] MEDS: METOPROLOL TARTRATE 50 MG TAB PO SCH ×2 (09:17→21:58)
[2017-07-27] MEDS: SODIUM CHLORIDE 0.9% FLUSH 10 ML FLUSH IV FLUSH SCH ×2 (09:18→22:00)
--- NOTE | 2017-07-27 14:17 | HHI.PR ---
Subjective Remarks Walking in the hallway no acute issue Awaiting placement Objective Vitals Vital Signs Date Time Temp Pulse Resp B/P (MAP) Pulse Ox O2 Delivery O2 Flow Rate FiO2 07/27/17 12:00 98.0 91 18 101/56 (71) 95 07/27/17 10:17 96 Nasal Cannula 4.00 07/27/17 08:00 98.5 80 18 137/78 (97) 97 07/27/17 04:00 98.0 93 18 103/57 (72) 94 07/27/17 00:00 98.1 95 18 105/62 (76) 90 07/26/17 20:00 98.4 95 21 96/54 (68) 94 07/26/17 16:50 95 Nasal Cannula 4.00 I/O 07/26/17 07/26/17 07/26/17 07/27/17 07/27/17 07/27/17 07:00 15:00 23:00 07:00 15:00 23:00 Intake Total 480 ml 480 ml Output Total 2000 ml Balance -1520 ml 480 ml Intake Oral 480 ml 480 ml Hemodialysis 2000 ml # Voids 1 Result Diagram: 07/25/17 0745 Objective Remarks GENERAL: This is a well-nourished, well-developed patient, in no apparent distress. CARDIOVASCULAR: RRR, no gallops, or rubs. RESPIRATORY: Fair air entry bilaterally. No W, R, or R GASTROINTESTINAL: Abdomen soft, non-tender, nondistended. Positive bowel sounds MUSCULOSKELETAL: Extremities without clubbing, cyanosis, or edema. Pedal pulses appreciated NEUROLOGICAL: Awake and alert. Moves all extremity. Normal speech.no focal neurological deficit Procedures none A/P Problem List: (1) ESRD (end stage renal disease) on dialysis ICD Code: N18.6 - End stage renal disease; Z99.2 - Dependence on renal dialysis (2) COPD (chronic obstructive pulmonary disease) ICD Code: J44.9 - Chronic obstructive pulmonary disease, unspecified Assessment and Plan 71-year-old male with past medical history significant for atrial fibrillation with RVR, end-stage renal disease on hemodialysis Saturday, COPD, hypertension, CHF and prostate cancer currently homeless who was brought in under [employer] act after patient refused to comply with critical treatment for dialysis and was transferred to inpatient psychiatry. Patient was treated in the medical psych unit and cleared by psychiatry. Patient was discharged to the medical floor for continued treatment of his hemodialysis, COPD. 07/25: Continue current care as below, continue efforts for placement, discussed with keycase assembler and PT today 07/26: Placement process ongoing 07/27: No acute issue continue efforts for placement Depression Dialysis noncompliance -Status post management by psychiatry. Labeled as adjustment disorder with depressed mood. ESRD on HD MWF Missed dialysis appointment -Nephrology consulted. Discussed with Dr. Pinto Creatinine is higher no signs of uremia repeat renal function in the morning -On a Saturday, Saturday, Saturday schedule. -Avoid nephrotoxic agents -Continue patient on home dose of Renvela Hyponatremia -resolved. Atrial fibrillation with CVR. Intermittent RVR with activity but patient is asymptomatic -Continue on Metoprolol 50mg BID -[id number] score 3, patient on ASA only for anticoagulation. Recommend follow up with bar host/hostess as an outpatient re novel agent -continue to monitor HR CHF, not decompensated -recent hospitalization for fluid overload -Abnormal chest x-ray with interstitial edema appears euvolemic at this time , continue to monitor fluid status. Discussed with nephrology to consider adjusting hemodialysis -continue on BB. Follow-up echo. EF of 50% LVH Hypertension -Resume patient's home dose of metoprolol 50 mg twice a day -Continue to monitor BP and adjust treatment accordingly -Clonidine prn with parameters COPD, not in acute exacerbation ?Chronic respiratory insufficiency -Patient does not use oxygen at home -O2 sats 88% on RA. Currently requires supplemental oxygen to maintain appropriate O2 saturations. Repeat chest x-ray as above -Patient status post respiratory home oxygen walk test which he completed, recommendations were that the patient needs home O2. Hx of prostate cancer -Outpatient follow-up Chronic N/V -Patient reports extensive negative workup as an outpatient -Resume patient on previous dose of PPI and Carafate DVT prophylaxis -Patient is ambulatory on the unit. Continue subcu heparin Discharge Planning Patient medically cleared for discharge but no accepting facility. Patient is also homeless Yany Jay MD Jul 27, 2017 14:17
[2017-07-27 14:37] LABS: AUTOMATED NEUTROPHIL # 6.9 TH/MM3 (1.8-7.7); BASOPHIL # 0.1 TH/MM3 (0-0.2); BASOPHIL % 0.9 % (0.0-2.0); EOSINOPHIL # 0.5 TH/MM3 (0-0.4); HEMATOCRIT 37.5 % (39.0-51.0); HEMOGLOBIN 12.1 GM/DL (13.0-17.0); LYMPH % 10.7 % (9.0-44.0); MEAN CELL VOLUME 84.3 FL (80.0-100.0); MEAN CORPUSCULAR HEMOGLOBIN 27.2 PG (27.0-34.0); MEAN CORPUSCULAR HGB CONC 32.3 % (32.0-36.0); MEAN PLATELET VOLUME 8.3 FL (7.0-11.0); MONO % 8.9 % (0.0-8.0); MONOCYTE # 0.8 TH/MM3 (0-0.9); NEUT % 74.5 % (16.0-70.0); PLATELET COUNT 372 TH/MM3 (150-450); RED BLOOD COUNT 4.45 MIL/MM3 (4.50-5.90); WHITE BLOOD COUNT 9.2 TH/MM3 (4.0-11.0)
[2017-07-27 14:52] LABS: CALCIUM 9.4 MG/DL (8.5-10.1); CREATININE 8.87 MG/DL (0.60-1.30)
--- NOTE | 2017-07-27 18:03 | HHI.NPPN ---
Subjective History of Present Illness Patient is 71-year-old homeless male ESRD who was [place] acted now transferred to medical floor Additional Remarks Patient is alert, sitting on chair, cough is better. Objective Data Data Vital Signs Date Time Temp Pulse Resp B/P (MAP) Pulse Ox O2 Delivery O2 Flow Rate FiO2 07/27/17 16:00 98.2 82 18 107/69 (82) 96 07/27/17 12:00 98.0 91 18 101/56 (71) 95 07/27/17 10:17 96 Nasal Cannula 4.00 07/27/17 08:00 98.5 80 18 137/78 (97) 97 07/27/17 04:00 98.0 93 18 103/57 (72) 94 07/27/17 00:00 98.1 95 18 105/62 (76) 90 07/26/17 20:00 98.4 95 21 96/54 (68) 94 -: 07/27/17 1358 07/27/17 1358 Physical Exam General Appearance: Well Developed, No Acute Distress Neck Neck Exam: Neck Supple Pulmonary Resp Exam: Breath Sounds Equal, Rhonchi, Sputum, Decreased Bases Cardiology CV Exam: Arrhythmia Gastrointestinal/Abdomen GI Exam: Soft, Non-Tender, Bowel Sounds Present Extremeties Extremities Exam: Trace Edema Neurologic Neuro Exam: Alert, Awake Assessment/Plan Problem List: (1) ESRD (end stage renal disease) on dialysis ICD Codes: N18.6 - End stage renal disease; Z99.2 - Dependence on renal dialysis Plan: hemodialysis to continue Saturday, Saturday and Saturday Patient needs psych social worker help as he is homeless History of A. fib. HD to continue MWF. Awaiting placement. (2) Hypertension ICD Codes: I10 - Essential (primary) hypertension Plan: Continue to monitor blood pressure (3) Adjustment disorder with depressed mood ICD Codes: F43.21 - Adjustment disorder with depressed mood Plan: Patient recently released by psychiatric (4) COPD (chronic obstructive pulmonary disease) ICD Codes: J44.9 - Chronic obstructive pulmonary disease, unspecified Plan: Continue to monitor Problem Qualifiers (1) Hypertension: Qualified Codes: I10 - Essential (primary) hypertension Nic Pinto MD Jul 27, 2017 18:03
[2017-07-27] MEDS: QUEtiapine FUMARATE 25 MG TAB PO SCH (21:58)
[2017-07-27] MEDS: guaiFENesin/CODEINE SYRUP 200 MG/20 MG/10 ML CUP PO PRN (21:58)
[2017-07-28] VITALS (7 sets, daily range): BP systolic 99–132; BP diastolic 62–89; PULSE 79–93; RESP 18; TEMP 97.7–98.2; O2SAT 92–95
[2017-07-28] MEDS: LORazepam 1 MG TAB PO PRN ×2 (00:07→20:53)
[2017-07-28] MEDS: diphenhydrAMINE HCL 25 MG CAP PO PRN ×2 (02:39→23:11)
[2017-07-28] MEDS: HEPARIN SODIUM - SQ 10,000 UNITS/ML VIAL SQ SCH ×2 (09:00→20:53)
[2017-07-28] MEDS: SERTRALINE HCL 50 MG TAB PO SCH (09:35)
[2017-07-28] MEDS: guaiFENesin E.R. 600 MG TAB PO SCH ×2 (09:35→20:53)
[2017-07-28] MEDS: METOPROLOL TARTRATE 50 MG TAB PO SCH ×2 (09:36→20:53)
[2017-07-28] MEDS: DOCUSATE SODIUM 50 MG/SENNA 8.6 MG TAB PO SCH ×2 (09:36→20:53)
[2017-07-28] MEDS: ASPIRIN 81 MG CHEW TAB CHEW SCH (09:36)
[2017-07-28] MEDS: SUCRALFATE 1 GM TAB PO SCH ×4 (09:36→20:53)
[2017-07-28] MEDS: SEVELAMER CARBONATE 800 MG TAB PO SCH ×3 (09:36→17:25)
[2017-07-28] MEDS: PANTOPRAZOLE SOD 40 MG DELAYED RELEASE TAB PO SCH (09:36)
[2017-07-28] MEDS: SODIUM CHLORIDE 0.9% FLUSH 10 ML FLUSH IV FLUSH SCH ×2 (09:38→20:55)
[2017-07-28] MEDS: RESP: ALBUTEROL 0.63 MG/3 ML NEB (PRN) NEB (12:30)
[2017-07-28] MEDS ORDERED: LORazepam 0.5 MG TAB PO ONE (12:45)
--- NOTE | 2017-07-28 14:15 | HHI.PR ---
Subjective Remarks Patient reported feeling very anxious. Restless extra Ativan today Objective Vitals Vital Signs Date Time Temp Pulse Resp B/P (MAP) Pulse Ox O2 Delivery O2 Flow Rate FiO2 07/28/17 12:00 98.1 84 18 99/62 (74) 94 07/28/17 08:00 Nasal Cannula 4.00 07/28/17 08:00 98.0 86 18 109/75 (86) 94 07/28/17 04:00 98.0 87 18 118/73 (88) 92 07/28/17 00:00 98.2 89 18 116/71 (86) 92 07/27/17 21:15 91 Nasal Cannula 4.00 07/27/17 20:00 Nasal Cannula 4.00 07/27/17 20:00 98.2 93 18 121/64 (83) 92 07/27/17 16:00 98.2 82 18 107/69 (82) 96 07/27/17 16:00 Nasal Cannula 4.00 I/O 07/27/17 07/27/17 07/27/17 07/28/17 07/28/17 07/28/17 07:00 15:00 23:00 07:00 15:00 23:00 Intake Total 480 ml 480 ml Balance 480 ml 480 ml Intake Oral 480 ml 480 ml # Voids 0 1 Result Diagram: 07/27/17 1358 07/27/17 1358 Objective Remarks GENERAL: This is a well-nourished, well-developed patient, in no apparent distress. CARDIOVASCULAR: RRR, no gallops, or rubs. RESPIRATORY: Fair air entry bilaterally. No W, R, or R GASTROINTESTINAL: Abdomen soft, non-tender, nondistended. Positive bowel sounds MUSCULOSKELETAL: Extremities without clubbing, cyanosis, or edema. Pedal pulses appreciated NEUROLOGICAL: Awake and alert. Moves all extremity. Normal speech.no focal neurological deficit Procedures none A/P Problem List: (1) ESRD (end stage renal disease) on dialysis ICD Code: N18.6 - End stage renal disease; Z99.2 - Dependence on renal dialysis (2) COPD (chronic obstructive pulmonary disease) ICD Code: J44.9 - Chronic obstructive pulmonary disease, unspecified Assessment and Plan 71-year-old male with past medical history significant for atrial fibrillation with RVR, end-stage renal disease on hemodialysis Saturday, COPD, hypertension, CHF and prostate cancer currently homeless who was brought in under [facility] act after patient refused to comply with critical treatment for dialysis and was transferred to inpatient psychiatry. Patient was treated in the medical psych unit and cleared by psychiatry. Patient was discharged to the medical floor for continued treatment of his hemodialysis, COPD. 07/25: Continue current care as below, continue efforts for placement, discussed with case preparer and liner and PT today 07/26: Placement process ongoing 07/27: No acute issue continue efforts for placement 07/28: Extra Ativan per patient request he feels anxious, continue ongoing efforts for placement Depression Dialysis noncompliance -Status post management by psychiatry. Labeled as adjustment disorder with depressed mood. ESRD on HD MWF Missed dialysis appointment -Nephrology consulted. Discussed with Dr. Pinto Creatinine is higher no signs of uremia repeat renal function in the morning -On a Saturday, Saturday, Saturday schedule. -Avoid nephrotoxic agents -Continue patient on home dose of Renvela Hyponatremia -resolved. Atrial fibrillation with CVR. Intermittent RVR with activity but patient is asymptomatic -Continue on Metoprolol 50mg BID -[id number] score 3, patient on ASA only for anticoagulation. Recommend follow up with sand buffer as an outpatient re novel agent -continue to monitor HR CHF, not decompensated -recent hospitalization for fluid overload -Abnormal chest x-ray with interstitial edema appears euvolemic at this time , continue to monitor fluid status. Discussed with nephrology to consider adjusting hemodialysis -continue on BB. Follow-up echo. EF of 50% LVH Hypertension -Resume patient's home dose of metoprolol 50 mg twice a day -Continue to monitor BP and adjust treatment accordingly -Clonidine prn with parameters COPD, not in acute exacerbation ?Chronic respiratory insufficiency -Patient does not use oxygen at home -O2 sats 88% on RA. Currently requires supplemental oxygen to maintain appropriate O2 saturations. Repeat chest x-ray as above -Patient status post respiratory home oxygen walk test which he completed, recommendations were that the patient needs home O2. Hx of prostate cancer -Outpatient follow-up Chronic N/V -Patient reports extensive negative workup as an outpatient -Resume patient on previous dose of PPI and Carafate DVT prophylaxis -Patient is ambulatory on the unit. Continue subcu heparin Discharge Planning Patient medically cleared for discharge but no accepting facility. Patient is also homeless Yany Jay MD Jul 28, 2017 14:15
--- NOTE | 2017-07-28 14:32 | HHI.NPPN ---
Subjective History of Present Illness Patient is 71-year-old homeless male ESRD who was [employer] acted now transferred to medical floor Additional Remarks Patient is alert, doing better Objective Data Data Vital Signs Date Time Temp Pulse Resp B/P (MAP) Pulse Ox O2 Delivery O2 Flow Rate FiO2 07/28/17 12:00 98.1 84 18 99/62 (74) 94 07/28/17 08:00 Nasal Cannula 4.00 07/28/17 08:00 98.0 86 18 109/75 (86) 94 07/28/17 04:00 98.0 87 18 118/73 (88) 92 07/28/17 00:00 98.2 89 18 116/71 (86) 92 07/27/17 21:15 91 Nasal Cannula 4.00 07/27/17 20:00 Nasal Cannula 4.00 07/27/17 20:00 98.2 93 18 121/64 (83) 92 07/27/17 16:00 98.2 82 18 107/69 (82) 96 07/27/17 16:00 Nasal Cannula 4.00 -: 07/27/17 1358 07/27/17 1358 Physical Exam General Appearance: Well Developed, No Acute Distress Neck Neck Exam: Neck Supple Pulmonary Resp Exam: Breath Sounds Equal, Rhonchi, Sputum, Decreased Bases Cardiology CV Exam: Arrhythmia Gastrointestinal/Abdomen GI Exam: Soft, Non-Tender, Bowel Sounds Present Extremeties Extremities Exam: Trace Edema Neurologic Neuro Exam: Alert, Awake Assessment/Plan Problem List: (1) ESRD (end stage renal disease) on dialysis ICD Codes: N18.6 - End stage renal disease; Z99.2 - Dependence on renal dialysis Plan: hemodialysis to continue Saturday, Saturday and Saturday Patient needs social worker psychiatric help as he is homeless History of A. fib. HD to continue MWF. He wants to go out Awaiting placement. (2) Hypertension ICD Codes: I10 - Essential (primary) hypertension Plan: Continue to monitor blood pressure (3) Adjustment disorder with depressed mood ICD Codes: F43.21 - Adjustment disorder with depressed mood Plan: Patient recently released by psychiatric (4) COPD (chronic obstructive pulmonary disease) ICD Codes: J44.9 - Chronic obstructive pulmonary disease, unspecified Plan: Continue to monitor Problem Qualifiers (1) Hypertension: Qualified Codes: I10 - Essential (primary) hypertension Nic Pinto MD Jul 28, 2017 14:32
[2017-07-28] MEDS: QUEtiapine FUMARATE 25 MG TAB PO SCH (20:53)
[2017-07-29] VITALS (8 sets, daily range): BP systolic 118–136; BP diastolic 62–89; PULSE 75–96; RESP 16–18; TEMP 97.7–98.7; O2SAT 91–98
[2017-07-29] MEDS: SUCRALFATE 1 GM TAB PO SCH ×4 (08:00→21:34)
[2017-07-29] MEDS: SEVELAMER CARBONATE 800 MG TAB PO SCH ×3 (08:00→17:32)
[2017-07-29] MEDS: ACETAMINOPHEN 325 MG TAB PO PRN (10:24)
[2017-07-29] MEDS: diphenhydrAMINE HCL 25 MG CAP PO PRN ×3 (12:02→21:38)
[2017-07-29] MEDS: DOCUSATE SODIUM 50 MG/SENNA 8.6 MG TAB PO SCH ×2 (12:02→21:34)
[2017-07-29] MEDS: METOPROLOL TARTRATE 50 MG TAB PO SCH ×2 (12:02→21:34)
[2017-07-29] MEDS: PANTOPRAZOLE SOD 40 MG DELAYED RELEASE TAB PO SCH (12:02)
[2017-07-29] MEDS: guaiFENesin E.R. 600 MG TAB PO SCH ×2 (12:03→21:34)
[2017-07-29] MEDS: ASPIRIN 81 MG CHEW TAB CHEW SCH (12:03)
[2017-07-29] MEDS: SODIUM CHLORIDE 0.9% FLUSH 10 ML FLUSH IV FLUSH SCH ×2 (12:03→21:34)
[2017-07-29] MEDS: SERTRALINE HCL 50 MG TAB PO SCH (12:04)
[2017-07-29] MEDS: HEPARIN SODIUM - SQ 10,000 UNITS/ML VIAL SQ SCH ×2 (12:04→21:00)
[2017-07-29] MEDS: RESP: ALBUTEROL 0.63 MG/3 ML NEB (PRN) NEB (14:28)
--- NOTE | 2017-07-29 17:26 | HHI.NPPN ---
Subjective History of Present Illness Patient is 71-year-old homeless male ESRD who was [place] acted now transferred to medical floor Additional Remarks Patient is alert, sob Objective Data Data Vital Signs Date Time Temp Pulse Resp B/P (MAP) Pulse Ox O2 Delivery O2 Flow Rate FiO2 07/29/17 16:00 98.1 78 18 123/75 (91) 94 07/29/17 12:00 Nasal Cannula 4.00 07/29/17 12:00 97.9 89 18 131/76 (94) 94 07/29/17 11:20 4.00 07/29/17 08:00 98.5 89 18 131/62 (85) 91 07/29/17 08:00 Nasal Cannula 4.00 07/29/17 04:00 97.8 88 18 118/64 (82) 97 07/29/17 04:00 Nasal Cannula 4.00 07/29/17 00:00 Nasal Cannula 4.00 07/29/17 00:00 97.8 75 18 134/82 (99) 97 07/28/17 20:30 Nasal Cannula 4.00 07/28/17 20:00 98.1 79 18 132/64 (86) 95 07/28/17 20:00 Nasal Cannula 4.00 -: 07/27/17 1358 07/27/17 1358 Physical Exam General Appearance: Well Developed, No Acute Distress Neck Neck Exam: Neck Supple Pulmonary Resp Exam: Breath Sounds Equal, Rhonchi, Sputum, Decreased Bases Cardiology CV Exam: Arrhythmia Gastrointestinal/Abdomen GI Exam: Soft, Non-Tender, Bowel Sounds Present Extremeties Extremities Exam: Trace Edema Neurologic Neuro Exam: Alert, Awake Assessment/Plan Problem List: (1) ESRD (end stage renal disease) on dialysis ICD Codes: N18.6 - End stage renal disease; Z99.2 - Dependence on renal dialysis Plan: hemodialysis to continue Saturday, Saturday and Saturday Patient needs bilingual social worker help as he is homeless History of A. fib. HD to continue MWF. He wants to go out Awaiting placement. (2) Hypertension ICD Codes: I10 - Essential (primary) hypertension Plan: Continue to monitor blood pressure (3) Adjustment disorder with depressed mood ICD Codes: F43.21 - Adjustment disorder with depressed mood Plan: Patient recently released by psychiatric (4) COPD (chronic obstructive pulmonary disease) ICD Codes: J44.9 - Chronic obstructive pulmonary disease, unspecified Plan: Continue to monitor Problem Qualifiers (1) Hypertension: Qualified Codes: I10 - Essential (primary) hypertension Nic Pinto MD Jul 29, 2017 17:26
[2017-07-29] MEDS: CALCITRIOL 0.25 MCG CAP PO SCH (17:32)
[2017-07-29] MEDS: LORazepam 2 MG/ML VIAL IV PUSH PRN (17:33)
--- NOTE | 2017-07-29 18:38 | HHI.PR ---
Subjective Remarks No acute issue, awaiting placement Objective Vitals Vital Signs Date Time Temp Pulse Resp B/P (MAP) Pulse Ox O2 Delivery O2 Flow Rate FiO2 07/29/17 16:00 98.1 78 18 123/75 (91) 94 07/29/17 12:00 Nasal Cannula 4.00 07/29/17 12:00 97.9 89 18 131/76 (94) 94 07/29/17 11:20 4.00 07/29/17 08:00 98.5 89 18 131/62 (85) 91 07/29/17 08:00 Nasal Cannula 4.00 07/29/17 04:00 97.8 88 18 118/64 (82) 97 07/29/17 04:00 Nasal Cannula 4.00 07/29/17 00:00 Nasal Cannula 4.00 07/29/17 00:00 97.8 75 18 134/82 (99) 97 07/28/17 20:30 Nasal Cannula 4.00 07/28/17 20:00 98.1 79 18 132/64 (86) 95 07/28/17 20:00 Nasal Cannula 4.00 I/O 07/28/17 07/28/17 07/28/17 07/29/17 07/29/17 07/29/17 07:00 15:00 23:00 07:00 15:00 23:00 Intake Total 480 ml 960 ml Balance 480 ml 960 ml Intake Oral 480 ml 960 ml # Voids 1 # Bowel Movements 1 Result Diagram: 07/27/17 1358 07/27/17 1358 Objective Remarks GENERAL: This is a well-nourished, well-developed patient, in no apparent distress. CARDIOVASCULAR: RRR, no gallops, or rubs. RESPIRATORY: Fair air entry bilaterally. No W, R, or R GASTROINTESTINAL: Abdomen soft, non-tender, nondistended. Positive bowel sounds MUSCULOSKELETAL: Extremities without clubbing, cyanosis, or edema. Pedal pulses appreciated NEUROLOGICAL: Awake and alert. Moves all extremity. Normal speech.no focal neurological deficit Procedures none A/P Problem List: (1) ESRD (end stage renal disease) on dialysis ICD Code: N18.6 - End stage renal disease; Z99.2 - Dependence on renal dialysis (2) COPD (chronic obstructive pulmonary disease) ICD Code: J44. - Chronic obstructive pulmonary disease, unspecified Assessment and Plan 71-year-old male with past medical history significant for atrial fibrillation with RVR, end-stage renal disease on hemodialysis Saturday, COPD, hypertension, CHF and prostate cancer currently homeless who was brought in under [employer] act after patient refused to comply with critical treatment for dialysis and was transferred to inpatient psychiatry. Patient was treated in the medical psych unit and cleared by psychiatry. Patient was discharged to the medical floor for continued treatment of his hemodialysis, COPD. 07/25: Continue current care as below, continue efforts for placement, discussed with rn case manager and PT today 07/26: Placement process ongoing 07/27: No acute issue continue efforts for placement 07/28: Extra Ativan per patient request he feels anxious, continue ongoing efforts for placement 07/29: Awaiting placement Depression Dialysis noncompliance -Status post management by psychiatry. Labeled as adjustment disorder with depressed mood. ESRD on HD MWF Missed dialysis appointment -Nephrology consulted. Discussed with Dr. Pinto Creatinine is higher no signs of uremia repeat renal function in the morning -On a Saturday, Saturday, Saturday schedule. -Avoid nephrotoxic agents -Continue patient on home dose of Renvela Hyponatremia -resolved. Atrial fibrillation with CVR. Intermittent RVR with activity but patient is asymptomatic -Continue on Metoprolol 50mg BID -[id number] score 3, patient on ASA only for anticoagulation. Recommend follow up with director hematology as an outpatient re novel agent -continue to monitor HR CHF, not decompensated -recent hospitalization for fluid overload -Abnormal chest x-ray with interstitial edema appears euvolemic at this time , continue to monitor fluid status. Discussed with nephrology to consider adjusting hemodialysis -continue on BB. Follow-up echo. EF of 50% LVH Hypertension -Resume patient's home dose of metoprolol 50 mg twice a day -Continue to monitor BP and adjust treatment accordingly -Clonidine prn with parameters COPD, not in acute exacerbation ?Chronic respiratory insufficiency -Patient does not use oxygen at home -O2 sats 88% on RA. Currently requires supplemental oxygen to maintain appropriate O2 saturations. Repeat chest x-ray as above -Patient status post respiratory home oxygen walk test which he completed, recommendations were that the patient needs home O2. Hx of prostate cancer -Outpatient follow-up Chronic N/V -Patient reports extensive negative workup as an outpatient -Resume patient on previous dose of PPI and Carafate DVT prophylaxis -Patient is ambulatory on the unit. Continue subcu heparin Discharge Planning Patient medically cleared for discharge but no accepting facility. Patient is also homeless Yany Jay MD Jul 29, 2017 18:38
[2017-07-29] MEDS: HEPARIN SODIUM - IV 10,000 UNITS/10 ML VIAL PRN (19:30)
[2017-07-29] MEDS: GENTAMICIN SULFATE 20 MG/2 ML VIAL OTHER PRN (19:30)
[2017-07-29] MEDS: QUEtiapine FUMARATE 25 MG TAB PO SCH (21:34)
[2017-07-30] MEDS: SODIUM CHLORIDE 0.9% FLUSH 10 ML FLUSH IV FLUSH SCH ×2 (07:34→20:16)
[2017-07-30] MEDS: SEVELAMER CARBONATE 800 MG TAB PO SCH ×3 (07:50→16:42)
[2017-07-30] MEDS: ASPIRIN 81 MG CHEW TAB CHEW SCH (07:51)
[2017-07-30] MEDS: guaiFENesin E.R. 600 MG TAB PO SCH ×2 (07:51→20:15)
[2017-07-30] MEDS: SERTRALINE HCL 50 MG TAB PO SCH (07:51)
[2017-07-30] MEDS: PANTOPRAZOLE SOD 40 MG DELAYED RELEASE TAB PO SCH (07:51)
[2017-07-30] MEDS: SUCRALFATE 1 GM TAB PO SCH ×4 (07:51→20:15)
[2017-07-30] MEDS: DOCUSATE SODIUM 50 MG/SENNA 8.6 MG TAB PO SCH ×2 (07:51→20:15)
[2017-07-30] MEDS: METOPROLOL TARTRATE 50 MG TAB PO SCH ×2 (07:52→20:15)
[2017-07-30] MEDS: HEPARIN SODIUM - SQ 10,000 UNITS/ML VIAL SQ SCH ×2 (07:53→20:15)
[2017-07-30 08:00] VITALS: BP 124/70; PULSE 84; RESP 20; TEMP 98.4; O2SAT 90
[2017-07-30 10:19] VITALS: O2SAT 91
[2017-07-30 12:00] VITALS: BP 126/72; PULSE 82; RESP 20; TEMP 98.1; O2SAT 94
[2017-07-30] MEDS: RESP: ALBUTEROL 0.63 MG/3 ML NEB (PRN) NEB (12:26)
[2017-07-30 12:28] VITALS: O2SAT 88
[2017-07-30] MEDS: ACETAMINOPHEN 325 MG TAB PO PRN (15:41)
--- NOTE | 2017-07-30 15:48 | HHI.PR ---
Subjective Remarks Resting comfortably sitting on a chair in the hallway No event overnight Stable on O2 nasal cannula No fever or chills Objective Vitals Vital Signs Date Time Temp Pulse Resp B/P (MAP) Pulse Ox O2 Delivery O2 Flow Rate FiO2 07/30/17 12:28 88 Nasal Cannula 4.00 07/30/17 12:00 98.1 82 20 126/72 (90) 94 07/30/17 10:19 91 Nasal Cannula 4.00 07/30/17 08:00 98.4 84 20 124/70 (88) 90 07/30/17 03:50 Nasal Cannula 4.00 07/30/17 01:43 Room Air 07/30/17 00:00 Nasal Cannula 4.00 07/29/17 23:50 98.7 85 16 120/73 (89) 92 07/29/17 21:30 98 Nasal Cannula 4.00 07/29/17 21:28 97.7 96 18 136/89 (105) 96 07/29/17 21:00 Nasal Cannula 4.00 07/29/17 16:00 98.1 78 18 123/75 (91) 94 07/29/17 16:00 Nasal Cannula 4.00 I/O 07/29/17 07/29/17 07/29/17 07/30/17 07/30/17 07/30/17 07:00 15:00 23:00 07:00 15:00 23:00 Intake Total 960 ml 240 ml Output Total 0 ml Balance 960 ml 240 ml Intake Oral 960 ml 240 ml Output Urine Total 0 ml # Bowel Movements 0 Result Diagram: 07/27/17 1358 07/27/17 1358 Objective Remarks GENERAL: This is a well-nourished, well-developed patient, in no apparent distress. CARDIOVASCULAR: RRR, no gallops, or rubs. RESPIRATORY: Fair air entry bilaterally. No W, R, or R GASTROINTESTINAL: Abdomen soft, non-tender, nondistended. Positive bowel sounds MUSCULOSKELETAL: Extremities without clubbing, cyanosis, or edema. Pedal pulses appreciated NEUROLOGICAL: Awake and alert. Moves all extremity. Normal speech.no focal neurological deficit Procedures none A/P Problem List: (1) ESRD (end stage renal disease) on dialysis ICD Code: N18.6 - End stage renal disease; Z99.2 - Dependence on renal dialysis (2) COPD (chronic obstructive pulmonary disease) ICD Code: J44.9 - Chronic obstructive pulmonary disease, unspecified Assessment and Plan 71-year-old male with past medical history significant for atrial fibrillation with RVR, end-stage renal disease on hemodialysis Saturday, COPD, hypertension, CHF and prostate cancer currently homeless who was brought in under [employer] act after patient refused to comply with critical treatment for dialysis and was transferred to inpatient psychiatry. Patient was treated in the medical psych unit and cleared by psychiatry. Patient was discharged to the medical floor for continued treatment of his hemodialysis, COPD. 07/25: Continue current care as below, continue efforts for placement, discussed with family caseworker and PT today 07/26: Placement process ongoing 07/27: No acute issue continue efforts for placement 07/28: Extra Ativan per patient request he feels anxious, continue ongoing efforts for placement 07/29: Awaiting placement 07/30: Continue current care awaiting placement Depression Dialysis noncompliance -Status post management by psychiatry. Labeled as adjustment disorder with depressed mood. ESRD on HD MWF Missed dialysis appointment -Nephrology consulted. Discussed with Dr. Pinto Creatinine is higher no signs of uremia repeat renal function in the morning -On a Saturday, Saturday, Saturday schedule. -Avoid nephrotoxic agents -Continue patient on home dose of Renvela Hyponatremia -resolved. Atrial fibrillation with CVR. Intermittent RVR with activity but patient is asymptomatic -Continue on Metoprolol 50mg BID -[id number] score 3, patient on ASA only for anticoagulation. Recommend follow up with director of advertising sales as an outpatient re novel agent -continue to monitor HR CHF, not decompensated -recent hospitalization for fluid overload -Abnormal chest x-ray with interstitial edema appears euvolemic at this time , continue to monitor fluid status. Discussed with nephrology to consider adjusting hemodialysis -continue on BB. Follow-up echo. EF of 50% LVH Hypertension -Resume patient's home dose of metoprolol 50 mg twice a day -Continue to monitor BP and adjust treatment accordingly -Clonidine prn with parameters COPD, not in acute exacerbation ?Chronic respiratory insufficiency -Patient does not use oxygen at home -O2 sats 88% on RA. Currently requires supplemental oxygen to maintain appropriate O2 saturations. Repeat chest x-ray as above -Patient status post respiratory home oxygen walk test which he completed, recommendations were that the patient needs home O2. Hx of prostate cancer -Outpatient follow-up Chronic N/V -Patient reports extensive negative workup as an outpatient -Resume patient on previous dose of PPI and Carafate DVT prophylaxis -Patient is ambulatory on the unit. Continue subcu heparin Discharge Planning Patient medically cleared for discharge but no accepting facility. Patient is also homeless Yany Jay MD Jul 30, 2017 15:48
[2017-07-30 16:00] VITALS: BP 129/71; PULSE 83; RESP 20; TEMP 98.1; O2SAT 92
[2017-07-30 20:00] VITALS: BP 126/68; PULSE 80; RESP 18; TEMP 98.2; O2SAT 97
[2017-07-30] MEDS: QUEtiapine FUMARATE 25 MG TAB PO SCH (20:15)
[2017-07-30] MEDS: diphenhydrAMINE HCL 25 MG CAP PO PRN (21:53)
[2017-07-31] VITALS (9 sets, daily range): BP systolic 107–155; BP diastolic 55–77; PULSE 76–100; RESP 16–21; TEMP 97.4–98.5; O2SAT 88–96
[2017-07-31] MEDS: SODIUM CHLORIDE 0.9% FLUSH 10 ML FLUSH IV FLUSH SCH ×2 (07:42→20:40)
[2017-07-31] MEDS: SERTRALINE HCL 50 MG TAB PO SCH (08:04)
[2017-07-31] MEDS: SEVELAMER CARBONATE 800 MG TAB PO SCH ×3 (08:04→16:15)
[2017-07-31] MEDS: METOPROLOL TARTRATE 50 MG TAB PO SCH ×2 (08:04→20:39)
[2017-07-31] MEDS: DOCUSATE SODIUM 50 MG/SENNA 8.6 MG TAB PO SCH ×2 (08:04→20:40)
[2017-07-31] MEDS: ASPIRIN 81 MG CHEW TAB CHEW SCH (08:04)
[2017-07-31] MEDS: SUCRALFATE 1 GM TAB PO SCH ×4 (08:04→20:40)
[2017-07-31] MEDS: PANTOPRAZOLE SOD 40 MG DELAYED RELEASE TAB PO SCH (08:04)
[2017-07-31] MEDS: guaiFENesin E.R. 600 MG TAB PO SCH ×2 (08:04→20:40)
[2017-07-31] MEDS: HEPARIN SODIUM - SQ 10,000 UNITS/ML VIAL SQ SCH ×2 (08:06→20:28)
[2017-07-31] MEDS: LORazepam 2 MG/ML VIAL IV PUSH PRN (09:30)
--- NOTE | 2017-07-31 11:32 | HHI.NPPN ---
Subjective History of Present Illness Patient is 71-year-old homeless male ESRD who was [place] acted now transferred to medical floor Additional Remarks Patient is alert, sob Objective Data Data Vital Signs Date Time Temp Pulse Resp B/P (MAP) Pulse Ox O2 Delivery O2 Flow Rate FiO2 07/31/17 07:15 97.9 76 20 134/77 (96) 94 07/31/17 04:57 96 Nasal Cannula 5.00 07/31/17 03:58 Nasal Cannula 4.00 90 07/31/17 03:56 97.4 97 16 107/61 (76) 90 07/31/17 00:00 97.7 85 18 155/74 (101) 92 07/31/17 00:00 Room Air 07/30/17 20:00 98.2 80 18 126/68 (87) 97 07/30/17 20:00 Nasal Cannula 4.00 07/30/17 16:00 98.1 83 20 129/71 (90) 92 07/30/17 12:28 88 Nasal Cannula 4.00 07/30/17 12:00 98.1 82 20 126/72 (90) 94 -: 07/27/17 1358 07/27/17 1358 Physical Exam General Appearance: Well Developed, No Acute Distress Neck Neck Exam: Neck Supple Pulmonary Resp Exam: Breath Sounds Equal, Rhonchi, Sputum, Decreased Bases Cardiology CV Exam: Arrhythmia Gastrointestinal/Abdomen GI Exam: Soft, Non-Tender, Bowel Sounds Present Extremeties Extremities Exam: Trace Edema Neurologic Neuro Exam: Alert, Awake Assessment/Plan Problem List: (1) ESRD (end stage renal disease) on dialysis ICD Codes: N18.6 - End stage renal disease; Z99.2 - Dependence on renal dialysis Plan: hemodialysis to continue Saturday, Saturday and Saturday Patient needs 7th grade social studies teacher help as he is homeless History of A. fib. HD to continue MWF. he will need placement seen during dialysis HD progress noted UF 3 L (2) Hypertension ICD Codes: I10 - Essential (primary) hypertension Plan: Continue to monitor blood pressure (3) Adjustment disorder with depressed mood ICD Codes: F43.21 - Adjustment disorder with depressed mood Plan: Patient recently released by psychiatric (4) COPD (chronic obstructive pulmonary disease) ICD Codes: J44.9 - Chronic obstructive pulmonary disease, unspecified Plan: Continue to monitor Problem Qualifiers (1) Hypertension: Qualified Codes: I10 - Essential (primary) hypertension Nic Pinto MD Jul 31, 2017 11:32
[2017-07-31] MEDS: CALCITRIOL 0.25 MCG CAP PO SCH (15:19)
--- NOTE | 2017-07-31 17:03 | HHI.PR ---
Subjective Remarks Resting comfortably in bed No event overnight Denied chest and or short of breath No fever or chills Objective Vitals Vital Signs Date Time Temp Pulse Resp B/P (MAP) Pulse Ox O2 Delivery O2 Flow Rate FiO2 07/31/17 16:00 98.2 100 21 121/71 (88) 88 07/31/17 07:15 97.9 76 20 134/77 (96) 94 07/31/17 04:57 96 Nasal Cannula 5.00 07/31/17 03:58 Nasal Cannula 4.00 90 07/31/17 03:56 97.4 97 16 107/61 (76) 90 07/31/17 00:00 97.7 85 18 155/74 (101) 92 07/31/17 00:00 Room Air 07/30/17 20:00 98.2 80 18 126/68 (87) 97 07/30/17 20:00 Nasal Cannula 4.00 I/O 07/30/17 07/30/17 07/30/17 07/31/17 07/31/17 07/31/17 07:00 15:00 23:00 07:00 15:00 23:00 Intake Total 240 ml 480 ml 240 ml Output Total 0 ml 0 ml 3000 ml Balance 240 ml 480 ml 240 ml -3000 ml Intake Oral 240 ml 480 ml 240 ml Output Urine Total 0 ml 0 ml Hemodialysis 3000 ml # Voids 1 # Bowel Movements 0 0 0 Result Diagram: 07/27/17 1358 07/27/17 1358 Objective Remarks GENERAL: This is a well-nourished, well-developed patient, in no apparent distress. CARDIOVASCULAR: RRR, no gallops, or rubs. RESPIRATORY: Fair air entry bilaterally. No W, R, or R GASTROINTESTINAL: Abdomen soft, non-tender, nondistended. Positive bowel sounds MUSCULOSKELETAL: Extremities without clubbing, cyanosis, or edema. Pedal pulses appreciated NEUROLOGICAL: Awake and alert. Moves all extremity. Normal speech.no focal neurological deficit Procedures none A/P Problem List: (1) ESRD (end stage renal disease) on dialysis ICD Code: N18.6 - End stage renal disease; Z99.2 - Dependence on renal dialysis (2) COPD (chronic obstructive pulmonary disease) ICD Code: J44.9 - Chronic obstructive pulmonary disease, unspecified Assessment and Plan 71-year-old male with past medical history significant for atrial fibrillation with RVR, end-stage renal disease on hemodialysis Saturday, COPD, hypertension, CHF and prostate cancer currently homeless who was brought in under [facility] act after patient refused to comply with critical treatment for dialysis and was transferred to inpatient psychiatry. Patient was treated in the medical psych unit and cleared by psychiatry. Patient was discharged to the medical floor for continued treatment of his hemodialysis, COPD. 07/31: Continue current care as below, continue efforts for placement, discussed with outsole caser and PT today Depression Dialysis noncompliance -Status post management by psychiatry. Labeled as adjustment disorder with depressed mood. ESRD on HD MWF Missed dialysis appointment -Nephrology consulted. Discussed with Dr. Pinto Creatinine is higher no signs of uremia repeat renal function in the morning -On a Saturday, Saturday, Saturday schedule. -Avoid nephrotoxic agents -Continue patient on home dose of Renvela Hyponatremia -resolved. Atrial fibrillation with CVR. Intermittent RVR with activity but patient is asymptomatic -Continue on Metoprolol 50mg BID -[id number] score 3, patient on ASA only for anticoagulation. Recommend follow up with grounds and nursery specialist as an outpatient re novel agent -continue to monitor HR CHF, not decompensated -recent hospitalization for fluid overload -Abnormal chest x-ray with interstitial edema appears euvolemic at this time , continue to monitor fluid status. Discussed with nephrology to consider adjusting hemodialysis -continue on BB. Follow-up echo. EF of 50% LVH Hypertension -Resume patient's home dose of metoprolol 50 mg twice a day -Continue to monitor BP and adjust treatment accordingly -Clonidine prn with parameters COPD, not in acute exacerbation ?Chronic respiratory insufficiency -Patient does not use oxygen at home -O2 sats 88% on RA. Currently requires supplemental oxygen to maintain appropriate O2 saturations. Repeat chest x-ray as above -Patient status post respiratory home oxygen walk test which he completed, recommendations were that the patient needs home O2. Hx of prostate cancer -Outpatient follow-up Chronic N/V -Patient reports extensive negative workup as an outpatient -Resume patient on previous dose of PPI and Carafate DVT prophylaxis -Patient is ambulatory on the unit. Continue subcu heparin Discharge Planning Patient medically cleared for discharge but no accepting facility. Patient is also homeless Yany Jay MD Jul 31, 2017 17:03
[2017-07-31] MEDS: diphenhydrAMINE HCL 25 MG CAP PO PRN ×2 (17:32→22:33)
[2017-07-31] MEDS: LORazepam 1 MG TAB PO PRN (20:39)
[2017-07-31] MEDS: QUEtiapine FUMARATE 25 MG TAB PO SCH (20:40)
[2017-08-01 07:00] VITALS: BP 115/76; PULSE 87; RESP 16; TEMP 97; O2SAT 96
[2017-08-01] MEDS: diphenhydrAMINE HCL 25 MG CAP PO PRN (08:39)
[2017-08-01] MEDS: DOCUSATE SODIUM 50 MG/SENNA 8.6 MG TAB PO SCH ×2 (08:40→22:41)
[2017-08-01] MEDS: SERTRALINE HCL 50 MG TAB PO SCH (08:40)
[2017-08-01] MEDS: SUCRALFATE 1 GM TAB PO SCH ×4 (08:40→22:41)
[2017-08-01] MEDS: ASPIRIN 81 MG CHEW TAB CHEW SCH (08:40)
[2017-08-01] MEDS: PANTOPRAZOLE SOD 40 MG DELAYED RELEASE TAB PO SCH (08:40)
[2017-08-01] MEDS: guaiFENesin E.R. 600 MG TAB PO SCH ×2 (08:40→22:41)
[2017-08-01] MEDS: METOPROLOL TARTRATE 50 MG TAB PO SCH ×2 (08:41→22:41)
[2017-08-01] MEDS: SEVELAMER CARBONATE 800 MG TAB PO SCH ×3 (08:41→18:28)
[2017-08-01] MEDS: SODIUM CHLORIDE 0.9% FLUSH 10 ML FLUSH IV FLUSH SCH ×2 (08:41→22:41)
[2017-08-01] MEDS: HEPARIN SODIUM - SQ 10,000 UNITS/ML VIAL SQ SCH ×3 (08:44→22:40)
[2017-08-01 09:32] VITALS: O2SAT 92
[2017-08-01 11:00] VITALS: BP 111/67; PULSE 83; RESP 16; TEMP 96; O2SAT 88
[2017-08-01 12:37] VITALS: O2SAT 95
--- NOTE | 2017-08-01 14:02 | HHI.PR ---
Subjective Remarks Patient reports he is feeling okay today. No new issues. Objective Vitals Vital Signs Date Time Temp Pulse Resp B/P (MAP) Pulse Ox O2 Delivery O2 Flow Rate FiO2 08/01/17 12:37 95 08/01/17 11:00 96.0 83 16 111/67 (82) 88 08/01/17 09:32 92 Nasal Cannula 3.00 08/01/17 07:00 97.0 87 16 115/76 (89) 96 08/01/17 00:00 Nasal Cannula 3.00 07/31/17 23:20 98.5 95 18 124/55 (78) 92 07/31/17 21:15 92 Nasal Cannula 3.00 07/31/17 20:34 Nasal Cannula 3.00 07/31/17 19:15 98.2 93 18 120/64 (82) 92 07/31/17 17:08 93 07/31/17 16:00 98.2 100 21 121/71 (88) 88 I/O 07/31/17 07/31/17 07/31/17 08/01/17 08/01/17 08/01/17 07:00 15:00 23:00 07:00 15:00 23:00 Intake Total 240 ml 480 ml 240 ml Output Total 0 ml 3000 ml Balance 240 ml -3000 ml 480 ml 240 ml Intake Oral 240 ml 480 ml 240 ml Output Urine Total 0 ml Hemodialysis 3000 ml # Voids 0 # Bowel Movements 0 2 1 Objective Remarks GENERAL: This is a well-nourished, well-developed patient, in no apparent distress. CARDIOVASCULAR: Normal rate and regular rhythm without murmurs, gallops, or rubs. RESPIRATORY: Good respiratory efforts. Breath sounds equal and clear to auscultation bilaterally. GASTROINTESTINAL: Abdomen soft, non-tender, non-distended. Normal active bowel sounds MUSCULOSKELETAL: Extremities without cyanosis, or edema. NEURO: Alert & Oriented x4 to person, place, time, situation. Moves all ext x4 PSYCH: Appropriate mood and affect. Procedures none A/P Problem List: (1) ESRD (end stage renal disease) on dialysis ICD Code: N18.6 - End stage renal disease; Z99.2 - Dependence on renal dialysis (2) COPD (chronic obstructive pulmonary disease) ICD Code: J44.9 - Chronic obstructive pulmonary disease, unspecified Assessment and Plan 71-year-old male with past medical history significant for atrial fibrillation with RVR, end-stage renal disease on hemodialysis Saturday, COPD, hypertension, CHF and prostate cancer currently homeless who was brought in under Rodriguez act after patient refused to comply with critical treatment for dialysis and was transferred to inpatient psychiatry. Patient was treated in the medical psych unit and cleared by psychiatry. Patient was discharged to the medical floor for continued treatment of his hemodialysis, COPD. 08/01: Continue current care as below, continue efforts for placement, discussed with medical case worker and PT today Depression Dialysis noncompliance -Status post management by psychiatry. Labeled as adjustment disorder with depressed mood. ESRD on HD MWF Missed dialysis appointment -Nephrology consulted. Discussed with Dr. Pinto Creatinine is higher no signs of uremia repeat renal function in the morning -On a Saturday, Saturday, Saturday schedule. -Avoid nephrotoxic agents -Continue patient on home dose of Renvela Hyponatremia -resolved. Atrial fibrillation with CVR. Intermittent RVR with activity but patient is asymptomatic -Continue on Metoprolol 50mg BID -[id number] score 3, patient on ASA only for anticoagulation. Recommend follow up with pulverizer tender as an outpatient re novel agent -continue to monitor HR CHF, not decompensated -recent hospitalization for fluid overload -Abnormal chest x-ray with interstitial edema appears euvolemic at this time , continue to monitor fluid status. Discussed with nephrology to consider adjusting hemodialysis -continue on BB. Follow-up echo. EF of 50% LVH Hypertension -Resume patient's home dose of metoprolol 50 mg twice a day -Continue to monitor BP and adjust treatment accordingly -Clonidine prn with parameters COPD, not in acute exacerbation ?Chronic respiratory insufficiency -Patient does not use oxygen at home -O2 sats 88% on RA. Currently requires supplemental oxygen to maintain appropriate O2 saturations. Repeat chest x-ray as above -Patient status post respiratory home oxygen walk test which he completed, recommendations were that the patient needs home O2. Hx of prostate cancer -Outpatient follow-up Chronic N/V -Patient reports extensive negative workup as an outpatient -Resume patient on previous dose of PPI and Carafate DVT prophylaxis -Patient is ambulatory on the unit. Continue subcu heparin Discharge Planning Patient medically cleared for discharge but no accepting facility. Cherry Pina MD Aug 01, 2017 14:02
[2017-08-01 21:00] VITALS: BP 135/85; PULSE 95; RESP 18; TEMP 97.9; O2SAT 89
[2017-08-01] MEDS: QUEtiapine FUMARATE 25 MG TAB PO SCH (22:40)
[2017-08-01] MEDS: LORazepam 1 MG TAB PO PRN (22:41)
[2017-08-01] MEDS: guaiFENesin/CODEINE SYRUP 200 MG/20 MG/10 ML CUP PO PRN (22:42)
[2017-08-02] VITALS: BP 125/79; PULSE 91; RESP 18; TEMP 98.1; O2SAT 91
[2017-08-02] MEDS: diphenhydrAMINE HCL 25 MG CAP PO PRN ×2 (03:33→19:17)
[2017-08-02 04:30] VITALS: BP 132/71; PULSE 80; RESP 18; TEMP 97.9; O2SAT 95
[2017-08-02] MEDS ORDERED: RESP: ALBUTEROL 2.5 MG/IPRATROPIUM 0.5 MG NEB (SCH) ONE (04:57)
[2017-08-02 08:00] VITALS: BP 135/72; PULSE 89; RESP 17; TEMP 97.8; O2SAT 93
[2017-08-02] MEDS: guaiFENesin E.R. 600 MG TAB PO SCH ×2 (08:07→22:10)
[2017-08-02] MEDS: LORazepam 2 MG/ML VIAL IV PUSH PRN (08:07)
[2017-08-02] MEDS: SEVELAMER CARBONATE 800 MG TAB PO SCH ×3 (08:07→17:00)
[2017-08-02] MEDS: SUCRALFATE 1 GM TAB PO SCH ×4 (08:08→22:10)
[2017-08-02] MEDS: PANTOPRAZOLE SOD 40 MG DELAYED RELEASE TAB PO SCH (08:08)
[2017-08-02] MEDS: HEPARIN SODIUM - SQ 10,000 UNITS/ML VIAL SQ SCH ×2 (08:08→21:00)
[2017-08-02] MEDS: ASPIRIN 81 MG CHEW TAB CHEW SCH (08:08)
[2017-08-02] MEDS: SERTRALINE HCL 50 MG TAB PO SCH (08:08)
[2017-08-02] MEDS: DOCUSATE SODIUM 50 MG/SENNA 8.6 MG TAB PO SCH ×2 (08:08→21:00)
[2017-08-02] MEDS: SODIUM CHLORIDE 0.9% FLUSH 10 ML FLUSH IV FLUSH SCH ×2 (08:09→21:00)
[2017-08-02] MEDS: METOPROLOL TARTRATE 50 MG TAB PO SCH ×2 (09:00→22:10)
--- NOTE | 2017-08-02 11:05 | HHI.NPPN ---
Subjective History of Present Illness Patient is 71-year-old homeless male ESRD who was [place] acted now transferred to medical floor Additional Remarks Patient is alert, sob Objective Data Data 08/02/17 08/03/17 19:00 07:00 Output Total 3000 ml Balance -3000 ml Hemodialysis 3000 ml Vital Signs Date Time Temp Pulse Resp B/P (MAP) Pulse Ox O2 Delivery O2 Flow Rate FiO2 08/02/17 08:00 97.8 89 17 135/72 (93) 93 08/02/17 08:00 Nasal Cannula 3.00 08/02/17 04:30 97.9 80 18 132/71 (91) 95 08/02/17 00:00 98.1 91 18 125/79 (94) 91 08/01/17 21:52 Nasal Cannula 4.00 08/01/17 21:00 97.9 95 18 135/85 (102) 89 08/01/17 19:15 Nasal Cannula 4.00 91 08/01/17 16:00 Nasal Cannula 4.00 08/01/17 12:37 95 08/01/17 12:00 Nasal Cannula 4.00 Physical Exam General Appearance: Well Developed, No Acute Distress Neck Neck Exam: Neck Supple Pulmonary Resp Exam: Breath Sounds Equal, Rhonchi, Sputum, Decreased Bases Cardiology CV Exam: Arrhythmia Gastrointestinal/Abdomen GI Exam: Soft, Non-Tender, Bowel Sounds Present Extremeties Extremities Exam: Trace Edema Neurologic Neuro Exam: Alert, Awake Assessment/Plan Problem List: (1) ESRD (end stage renal disease) on dialysis ICD Codes: N18.6 - End stage renal disease; Z99.2 - Dependence on renal dialysis Plan: hemodialysis to continue Saturday, Saturday and Saturday Patient needs psychosocial rehabilitation counselor help as he is homeless History of A. fib. HD to continue MWF. he will need placement seen during dialysis HD progress noted UF 3 L (2) Hypertension ICD Codes: I10 - Essential (primary) hypertension Plan: Continue to monitor blood pressure (3) Adjustment disorder with depressed mood ICD Codes: F43.21 - Adjustment disorder with depressed mood Plan: Patient recently released by psychiatric (4) COPD (chronic obstructive pulmonary disease) ICD Codes: J44.9 - Chronic obstructive pulmonary disease, unspecified Plan: Continue to monitor Problem Qualifiers (1) Hypertension: Qualified Codes: I10 - Essential (primary) hypertension Nic Pinto MD Aug 02, 2017 11:04
[2017-08-02] MEDS: GENTAMICIN SULFATE 20 MG/2 ML VIAL OTHER PRN (11:43)
[2017-08-02] MEDS: CALCITRIOL 0.25 MCG CAP PO SCH (14:33)
--- NOTE | 2017-08-02 15:29 | HHI.PR ---
Subjective Remarks Patient states he is tired of being in the hospital. He is considering leaving AMA. After extensive discussion with him. He understands the need to have a safe discharge plan. Objective Vitals Vital Signs Date Time Temp Pulse Resp B/P (MAP) Pulse Ox O2 Delivery O2 Flow Rate FiO2 08/02/17 12:00 Nasal Cannula 3.00 08/02/17 08:00 97.8 89 17 135/72 (93) 93 08/02/17 08:00 Nasal Cannula 3.00 08/02/17 04:30 97.9 80 18 132/71 (91) 95 08/02/17 00:00 98.1 91 18 125/79 (94) 91 08/01/17 21:52 Nasal Cannula 4.00 08/01/17 21:00 97.9 95 18 135/85 (102) 89 08/01/17 19:15 Nasal Cannula 4.00 91 08/01/17 16:00 Nasal Cannula 4.00 I/O 08/01/17 08/01/17 08/01/17 08/02/17 08/02/17 08/02/17 07:00 15:00 23:00 07:00 15:00 23:00 Intake Total 240 ml 480 ml 300 ml Output Total 3000 ml Balance 240 ml 480 ml 300 ml -3000 ml Intake Oral 240 ml 480 ml 300 ml Hemodialysis 3000 ml # Voids 0 1 # Bowel Movements 1 1 Objective Remarks GENERAL: This is a well-nourished, well-developed patient, in no apparent distress. CARDIOVASCULAR: Normal rate and regular rhythm without murmurs, gallops, or rubs. RESPIRATORY: Good respiratory efforts. Breath sounds equal and clear to auscultation bilaterally. GASTROINTESTINAL: Abdomen soft, non-tender, non-distended. Normal active bowel sounds MUSCULOSKELETAL: Extremities without cyanosis, or edema. NEURO: Alert & Oriented x4 to person, place, time, situation. Moves all ext x4 PSYCH: Appropriate mood and affect. Procedures none A/P Problem List: (1) ESRD (end stage renal disease) on dialysis ICD Code: N18.6 - End stage renal disease; Z99.2 - Dependence on renal dialysis (2) COPD (chronic obstructive pulmonary disease) ICD Code: J44.9 - Chronic obstructive pulmonary disease, unspecified Assessment and Plan 71-year-old male with past medical history significant for atrial fibrillation with RVR, end-stage renal disease on hemodialysis Saturday, COPD, hypertension, CHF and prostate cancer currently homeless who was brought in under [place] act after patient refused to comply with critical treatment for dialysis and was transferred to inpatient psychiatry. Patient was treated in the medical psych unit and cleared by psychiatry. Patient was discharged to the medical floor for continued treatment of his hemodialysis, COPD. 08/02: Continue current care as below, continue efforts for placement, discussed with heel caser. Advised the patient against leaving AMA. Need a safe discharge plan. Depression Dialysis noncompliance -Status post management by psychiatry. Labeled as adjustment disorder with depressed mood. ESRD on HD MWF Missed dialysis appointment -Nephrology consulted. Discussed with Dr. Pinto Creatinine is higher no signs of uremia repeat renal function in the morning -On a Saturday, Saturday, Saturday schedule. -Avoid nephrotoxic agents -Continue patient on home dose of Renvela Hyponatremia -resolved. Atrial fibrillation with CVR. Intermittent RVR with activity but patient is asymptomatic -Continue on Metoprolol 50mg BID -[id number] score 3, patient on ASA only for anticoagulation. Recommend follow up with cargo service agent as an outpatient re novel agent -continue to monitor HR CHF, not decompensated -recent hospitalization for fluid overload -Abnormal chest x-ray with interstitial edema appears euvolemic at this time , continue to monitor fluid status. Discussed with nephrology to consider adjusting hemodialysis -continue on BB. Follow-up echo. EF of 50% LVH Hypertension -Resume patient's home dose of metoprolol 50 mg twice a day -Continue to monitor BP and adjust treatment accordingly -Clonidine prn with parameters COPD, not in acute exacerbation ?Chronic respiratory insufficiency -Patient does not use oxygen at home -O2 sats 88% on RA. Currently requires supplemental oxygen to maintain appropriate O2 saturations. Repeat chest x-ray as above -Patient status post respiratory home oxygen walk test which he completed, recommendations were that the patient needs home O2. Hx of prostate cancer -Outpatient follow-up Chronic N/V -Patient reports extensive negative workup as an outpatient -Resume patient on previous dose of PPI and Carafate DVT prophylaxis -Patient is ambulatory on the unit. Continue subcu heparin Discharge Planning Patient medically cleared for discharge but no accepting facility. Cherry Pina MD Aug 02, 2017 15:29
[2017-08-02] MEDS: ACETAMINOPHEN 325 MG TAB PO PRN (19:17)
[2017-08-02 20:00] VITALS: BP 116/64; PULSE 108; RESP 18; TEMP 98; O2SAT 94
[2017-08-02] MEDS: QUEtiapine FUMARATE 25 MG TAB PO SCH (22:09)
[2017-08-02] MEDS: LORazepam 1 MG TAB PO PRN (22:09)
[2017-08-03] VITALS: BP 114/63; PULSE 97; RESP 18; TEMP 98.2; O2SAT 94
[2017-08-03] MEDS: diphenhydrAMINE HCL 25 MG CAP PO PRN ×2 (01:15→22:02)
[2017-08-03 04:00] VITALS: BP 106/71; PULSE 83; RESP 18; TEMP 97.7; O2SAT 91
[2017-08-03 08:00] VITALS: BP 110/66; PULSE 94; RESP 20; TEMP 98.2; O2SAT 94
[2017-08-03] MEDS: METOPROLOL TARTRATE 50 MG TAB PO SCH ×2 (08:47→21:06)
[2017-08-03] MEDS: PANTOPRAZOLE SOD 40 MG DELAYED RELEASE TAB PO SCH (08:47)
[2017-08-03] MEDS: SEVELAMER CARBONATE 800 MG TAB PO SCH ×3 (08:47→17:21)
[2017-08-03] MEDS: guaiFENesin E.R. 600 MG TAB PO SCH ×2 (08:47→21:06)
[2017-08-03] MEDS: SUCRALFATE 1 GM TAB PO SCH ×4 (08:47→21:06)
[2017-08-03] MEDS: DOCUSATE SODIUM 50 MG/SENNA 8.6 MG TAB PO SCH ×2 (08:47→21:00)
[2017-08-03] MEDS: HEPARIN SODIUM - SQ 10,000 UNITS/ML VIAL SQ SCH ×2 (08:48→21:00)
[2017-08-03] MEDS: SODIUM CHLORIDE 0.9% FLUSH 10 ML FLUSH IV FLUSH SCH ×2 (08:48→21:04)
[2017-08-03] MEDS: SERTRALINE HCL 50 MG TAB PO SCH (08:48)
[2017-08-03] MEDS: ASPIRIN 81 MG CHEW TAB CHEW SCH (08:48)
[2017-08-03 12:00] VITALS: BP 108/65; PULSE 93; RESP 20; TEMP 98; O2SAT 93
--- NOTE | 2017-08-03 15:45 | HHI.PR ---
Subjective Remarks No new changes. Patient would like his diet to be changed. Objective Vitals Vital Signs Date Time Temp Pulse Resp B/P (MAP) Pulse Ox O2 Delivery O2 Flow Rate FiO2 08/03/17 12:00 98.0 93 20 108/65 (79) 93 08/03/17 08:00 Nasal Cannula 4.00 08/03/17 08:00 98.2 94 20 110/66 (81) 94 08/03/17 04:00 97.7 83 18 106/71 (83) 91 08/03/17 00:00 98.2 97 18 114/63 (80) 94 08/02/17 20:00 98.0 108 18 116/64 (81) 94 08/02/17 19:15 Nasal Cannula 4.00 91 08/02/17 16:00 Nasal Cannula 3.00 I/O 08/02/17 08/02/17 08/02/17 08/03/17 08/03/17 08/03/17 07:00 15:00 23:00 07:00 15:00 23:00 Intake Total 300 ml 1440 ml 600 ml Output Total 3000 ml Balance 300 ml -3000 ml 1440 ml 600 ml Intake Oral 300 ml 1440 ml 600 ml Hemodialysis 3000 ml # Voids 1 6 3 # Bowel Movements 1 Objective Remarks GENERAL: This is a well-nourished, well-developed patient, in no apparent distress. CARDIOVASCULAR: Normal rate and regular rhythm without murmurs, gallops, or rubs. RESPIRATORY: Good respiratory efforts. Breath sounds equal and clear to auscultation bilaterally. GASTROINTESTINAL: Abdomen soft, non-tender, non-distended. Normal active bowel sounds PSYCH: Appropriate mood and affect. Procedures none A/P Problem List: (1) ESRD (end stage renal disease) on dialysis ICD Code: N18.6 - End stage renal disease; Z99.2 - Dependence on renal dialysis (2) COPD (chronic obstructive pulmonary disease) ICD Code: J44.9 - Chronic obstructive pulmonary disease, unspecified Assessment and Plan 71-year-old male with past medical history significant for atrial fibrillation with RVR, end-stage renal disease on hemodialysis Saturday, COPD, hypertension, CHF and prostate cancer currently homeless who was brought in under Rodriguez act after patient refused to comply with critical treatment for dialysis and was transferred to inpatient psychiatry. Patient was treated in the medical psych unit and cleared by psychiatry. Patient was discharged to the medical floor for continued treatment of his hemodialysis, COPD. 08/03: Continue current care as below, continue efforts for placement, case management following. Depression Dialysis noncompliance -Status post management by psychiatry. Labeled as adjustment disorder with depressed mood. ESRD on HD MWF Missed dialysis appointment -Nephrology consulted. On hemodialysis. -On a Saturday, Saturday, Saturday schedule. -Continue patient on home dose of Renvela Hyponatremia -resolved. Atrial fibrillation with CVR. Intermittent RVR with activity but patient is asymptomatic -Continue on Metoprolol 50mg BID -[id number] score 3, patient on ASA only for anticoagulation. Recommend follow up with muffler tender as an outpatient re novel agent -continue to monitor HR CHF, not decompensated -recent hospitalization for fluid overload -Abnormal chest x-ray with interstitial edema appears euvolemic at this time , continue to monitor fluid status. Discussed with nephrology to consider adjusting hemodialysis -continue on BB. Follow-up echo. EF of 50% LVH Hypertension -Resume patient's home dose of metoprolol 50 mg twice a day -Continue to monitor BP and adjust treatment accordingly -Clonidine prn with parameters COPD, not in acute exacerbation ?Chronic respiratory insufficiency -Patient does not use oxygen at home -O2 sats 88% on RA. Currently requires supplemental oxygen to maintain appropriate O2 saturations. Repeat chest x-ray as above -Patient status post respiratory home oxygen walk test which he completed, recommendations were that the patient needs home O2. Hx of prostate cancer -Outpatient follow-up Chronic N/V -Patient reports extensive negative workup as an outpatient -Resume patient on previous dose of PPI and Carafate DVT prophylaxis -Patient is ambulatory on the unit. Continue subcu heparin Discharge Planning Patient medically cleared for discharge but no accepting facility. Cherry Pina MD Aug 03, 2017 15:45
[2017-08-03 16:00] VITALS: BP 108/64; PULSE 95; RESP 20; TEMP 98.3; O2SAT 94
[2017-08-03 20:00] VITALS: BP 143/78; PULSE 114; RESP 20; TEMP 98.5; O2SAT 94
[2017-08-03] MEDS: QUEtiapine FUMARATE 25 MG TAB PO SCH (21:06)
[2017-08-03] MEDS: LORazepam 1 MG TAB PO PRN (22:02)
[2017-08-04] VITALS (7 sets, daily range): BP systolic 124–146; BP diastolic 68–82; PULSE 83–96; RESP 20; TEMP 96.1–98; O2SAT 81–95
[2017-08-04] MEDS: RESP: ALBUTEROL 0.63 MG/3 ML NEB (PRN) NEB ×2 (01:09→09:37)
[2017-08-04] MEDS: CALAMINE/PRAMOXINE LOTION 180 ML BTL TOPICAL PRN (01:21)
[2017-08-04] MEDS: SUCRALFATE 1 GM TAB PO SCH ×4 (08:59→22:40)
[2017-08-04] MEDS: PANTOPRAZOLE SOD 40 MG DELAYED RELEASE TAB PO SCH (08:59)
[2017-08-04] MEDS: SEVELAMER CARBONATE 800 MG TAB PO SCH ×3 (08:59→16:46)
[2017-08-04] MEDS: guaiFENesin E.R. 600 MG TAB PO SCH ×2 (09:00→22:40)
[2017-08-04] MEDS: ASPIRIN 81 MG CHEW TAB CHEW SCH (09:00)
[2017-08-04] MEDS: SERTRALINE HCL 50 MG TAB PO SCH (09:00)
[2017-08-04] MEDS: SODIUM CHLORIDE 0.9% FLUSH 10 ML FLUSH IV FLUSH SCH ×2 (09:00→22:42)
[2017-08-04] MEDS: METOPROLOL TARTRATE 50 MG TAB PO SCH ×2 (09:00→22:40)
[2017-08-04] MEDS: HEPARIN SODIUM - SQ 10,000 UNITS/ML VIAL SQ SCH ×2 (09:00→21:00)
[2017-08-04] MEDS: DOCUSATE SODIUM 50 MG/SENNA 8.6 MG TAB PO SCH ×2 (09:00→21:00)
--- NOTE | 2017-08-04 15:14 | HHI.PR ---
Subjective Remarks Patient threatening to leave the hospital AMA again. He has no real plans after discharge. He states he will give it another day. Objective Vitals Vital Signs Date Time Temp Pulse Resp B/P (MAP) Pulse Ox O2 Delivery O2 Flow Rate FiO2 08/04/17 12:00 97.6 83 20 133/76 (95) 91 08/04/17 09:37 93 Nasal Cannula 4.00 08/04/17 08:00 Nasal Cannula 4.00 08/04/17 08:00 96.1 96 20 129/82 (98) 93 08/04/17 04:00 98.0 90 20 125/68 (87) 81 08/04/17 00:00 97.3 93 20 124/79 (94) 91 08/03/17 20:27 Nasal Cannula 3.00 08/03/17 20:15 Nasal Cannula 4.00 08/03/17 20:00 98.5 114 20 143/78 (99) 94 08/03/17 16:00 98.3 95 20 108/64 (79) 94 I/O 08/03/17 08/03/17 08/03/17 08/04/17 08/04/17 08/04/17 07:00 15:00 23:00 07:00 15:00 23:00 Intake Total 600 ml 480 ml Balance 600 ml 480 ml Intake Oral 600 ml 480 ml # Voids 3 6 # Bowel Movements 1 Objective Remarks GENERAL: This is a well-nourished, well-developed patient, in no apparent distress. CARDIOVASCULAR: Normal rate and regular rhythm without murmurs, gallops, or rubs. RESPIRATORY: Good respiratory efforts. Breath sounds equal and clear to auscultation bilaterally. GASTROINTESTINAL: Abdomen soft, non-tender, non-distended. Normal active bowel sounds PSYCH: Appropriate mood and affect. Procedures none A/P Problem List: (1) ESRD (end stage renal disease) on dialysis ICD Code: N18.6 - End stage renal disease; Z99.2 - Dependence on renal dialysis (2) COPD (chronic obstructive pulmonary disease) ICD Code: J44.9 - Chronic obstructive pulmonary disease, unspecified Assessment and Plan 71-year-old male with past medical history significant for atrial fibrillation with RVR, end-stage renal disease on hemodialysis Saturday, COPD, hypertension, CHF and prostate cancer currently homeless who was brought in under [employer] act after patient refused to comply with critical treatment for dialysis and was transferred to inpatient psychiatry. Patient was treated in the medical psych unit and cleared by psychiatry. Patient was discharged to the medical floor for continued treatment of his hemodialysis, COPD. 08/04: Patient threatening to leave AMA. He was advised that he needs a safe discharge plan. Best option would be for him to return back to [place] where he has family as he is a homeless in this area and he needs dialysis. Depression Dialysis noncompliance -Status post management by psychiatry. Labeled as adjustment disorder with depressed mood. ESRD on HD MWF Missed dialysis appointment -Nephrology consulted. On hemodialysis. -On a Saturday, Saturday, Saturday schedule. -Continue patient on home dose of Renvela Hyponatremia -resolved. Atrial fibrillation with CVR. Intermittent RVR with activity but patient is asymptomatic -Continue on Metoprolol 50mg BID -[id number] score 3, patient on ASA only for anticoagulation. Recommend follow up with service center technician as an outpatient re novel agent -continue to monitor HR CHF, not decompensated -recent hospitalization for fluid overload -Abnormal chest x-ray with interstitial edema appears euvolemic at this time , continue to monitor fluid status. Discussed with nephrology to consider adjusting hemodialysis -continue on BB. Follow-up echo. EF of 50% LVH Hypertension -Resume patient's home dose of metoprolol 50 mg twice a day -Continue to monitor BP and adjust treatment accordingly -Clonidine prn with parameters COPD, not in acute exacerbation ?Chronic respiratory insufficiency -Patient does not use oxygen at home -O2 sats 88% on RA. Currently requires supplemental oxygen to maintain appropriate O2 saturations. Repeat chest x-ray as above -Patient status post respiratory home oxygen walk test which he completed, recommendations were that the patient needs home O2. Hx of prostate cancer -Outpatient follow-up Chronic N/V -Patient reports extensive negative workup as an outpatient -Resume patient on previous dose of PPI and Carafate DVT prophylaxis -Patient is ambulatory on the unit. Continue subcu heparin Discharge Planning Patient medically cleared for discharge but no accepting facility. Ideally he should return to [place] where he has family. He is homeless in this area. Cherry Pina MD Aug 04, 2017 15:14
[2017-08-04] MEDS: diphenhydrAMINE HCL 25 MG CAP PO PRN ×2 (16:47→22:40)
[2017-08-04] MEDS: LORazepam 1 MG TAB PO PRN (22:40)
[2017-08-04] MEDS: QUEtiapine FUMARATE 25 MG TAB PO SCH (22:41)
[2017-08-05] VITALS (7 sets, daily range): BP systolic 115–147; BP diastolic 65–94; PULSE 84–93; RESP 20; TEMP 97.3–98.4; O2SAT 93–97
[2017-08-05] MEDS: diphenhydrAMINE HCL 25 MG CAP PO PRN ×4 (04:35→18:33)
[2017-08-05] MEDS: SUCRALFATE 1 GM TAB PO SCH ×5 (08:01→22:03)
[2017-08-05] MEDS: PANTOPRAZOLE SOD 40 MG DELAYED RELEASE TAB PO SCH (08:01)
[2017-08-05] MEDS: DOCUSATE SODIUM 50 MG/SENNA 8.6 MG TAB PO SCH ×2 (08:01→21:00)
[2017-08-05] MEDS: METOPROLOL TARTRATE 50 MG TAB PO SCH ×2 (08:01→22:03)
[2017-08-05] MEDS: SERTRALINE HCL 50 MG TAB PO SCH (08:01)
[2017-08-05] MEDS: guaiFENesin E.R. 600 MG TAB PO SCH ×2 (08:01→22:03)
[2017-08-05] MEDS: SEVELAMER CARBONATE 800 MG TAB PO SCH ×4 (08:01→16:11)
[2017-08-05] MEDS: ASPIRIN 81 MG CHEW TAB CHEW SCH (08:01)
[2017-08-05] MEDS: SODIUM CHLORIDE 0.9% FLUSH 10 ML FLUSH IV FLUSH SCH ×2 (08:02→22:04)
[2017-08-05] MEDS: LORazepam 2 MG/ML VIAL IV PUSH PRN (08:03)
[2017-08-05] MEDS: HEPARIN SODIUM - SQ 10,000 UNITS/ML VIAL SQ SCH ×2 (08:04→21:00)
[2017-08-05] MEDS: HEPARIN SODIUM - IV 10,000 UNITS/10 ML VIAL IV FLUSH PRN (09:44)
[2017-08-05] MEDS: GENTAMICIN SULFATE 20 MG/2 ML VIAL OTHER PRN (09:44)
--- NOTE | 2017-08-05 11:25 | HHI.NPPN ---
Subjective History of Present Illness Patient is 71-year-old homeless male ESRD who was Rodriguez acted now transferred to medical floor Additional Remarks Patient is alert, no sob Objective Data Data Vital Signs Date Time Temp Pulse Resp B/P (MAP) Pulse Ox O2 Delivery O2 Flow Rate FiO2 08/05/17 09:30 Nasal Cannula 4.00 08/05/17 09:07 Nasal Cannula 08/05/17 08:00 98.0 93 20 136/94 (108) 93 08/05/17 04:00 97.5 91 20 141/92 (108) 93 08/05/17 00:00 97.7 84 20 115/65 (82) 93 08/04/17 21:00 Nasal Cannula 4.00 08/04/17 20:00 97.8 84 20 146/80 (102) 94 08/04/17 16:00 97.6 87 20 135/72 (93) 95 08/04/17 12:00 97.6 83 20 133/76 (95) 91 Physical Exam General Appearance: Well Developed, No Acute Distress Neck Neck Exam: Neck Supple Pulmonary Resp Exam: Breath Sounds Equal, Rhonchi, Sputum, Decreased Bases Cardiology CV Exam: Arrhythmia Gastrointestinal/Abdomen GI Exam: Soft, Non-Tender, Bowel Sounds Present Extremeties Extremities Exam: Trace Edema Neurologic Neuro Exam: Alert, Awake Assessment/Plan Problem List: (1) ESRD (end stage renal disease) on dialysis ICD Codes: N18.6 - End stage renal disease; Z99.2 - Dependence on renal dialysis Plan: hemodialysis to continue Saturday, Saturday and Saturday Patient needs public health social worker help as he is homeless History of A. fib. HD to continue MWF. he will need placement seen during dialysis HD progress noted UF 2 L (2) Hypertension ICD Codes: I10 - Essential (primary) hypertension Plan: Continue to monitor blood pressure (3) Adjustment disorder with depressed mood ICD Codes: F43.21 - Adjustment disorder with depressed mood Plan: Patient recently released by psychiatric (4) COPD (chronic obstructive pulmonary disease) ICD Codes: J44.9 - Chronic obstructive pulmonary disease, unspecified Plan: Continue to monitor Problem Qualifiers (1) Hypertension: Qualified Codes: I10 - Essential (primary) hypertension Nic Pinto MD Aug 05, 2017 11:25
[2017-08-05] MEDS: CALCITRIOL 0.25 MCG CAP PO SCH (11:41)
[2017-08-05 14:16] LABS: HEMATOCRIT 34.2 % (39.0-51.0); HEMOGLOBIN 11.3 GM/DL (13.0-17.0); MEAN CELL VOLUME 81.5 FL (80.0-100.0); MEAN CORPUSCULAR HGB CONC 33.1 % (32.0-36.0); MEAN PLATELET VOLUME 7.9 FL (7.0-11.0); PLATELET COUNT 349 TH/MM3 (150-450); RED CELL DISTRIBUTION WIDTH 18.8 % (11.6-17.2); WHITE BLOOD COUNT 7.9 TH/MM3 (4.0-11.0)
[2017-08-05 14:36] LABS: BICARBONATE 30.9 MEQ/L (21.0-32.0); CALCIUM 9.4 MG/DL (8.5-10.1); CREATININE 7.49 MG/DL (0.60-1.30)
--- NOTE | 2017-08-05 14:46 | HHI.PR ---
Subjective Remarks Patient reports he is doing okay. No new complaints today. Objective Vitals Vital Signs Date Time Temp Pulse Resp B/P (MAP) Pulse Ox O2 Delivery O2 Flow Rate FiO2 08/05/17 12:00 97.3 91 20 131/89 (103) 93 08/05/17 09:30 Nasal Cannula 4.00 08/05/17 09:07 Nasal Cannula 08/05/17 08:00 98.0 93 20 136/94 (108) 93 08/05/17 04:00 97.5 91 20 141/92 (108) 93 08/05/17 00:00 97.7 84 20 115/65 (82) 93 08/04/17 21:00 Nasal Cannula 4.00 08/04/17 20:00 97.8 84 20 146/80 (102) 94 08/04/17 16:00 97.6 87 20 135/72 (93) 95 I/O 08/04/17 08/04/17 08/04/17 08/05/17 08/05/17 08/05/17 07:00 15:00 23:00 07:00 15:00 23:00 Intake Total 720 ml 360 ml Output Total 2300 ml Balance 720 ml 360 ml -2300 ml Intake Oral 720 ml 360 ml Hemodialysis 2300 ml # Voids 2 0 # Bowel Movements 1 1 Result Diagram: 08/05/17 1352 08/05/17 1352 Objective Remarks GENERAL: This is a well-nourished, well-developed patient, in no apparent distress. CARDIOVASCULAR: Normal rate and regular rhythm without murmurs, gallops, or rubs. RESPIRATORY: Good respiratory efforts. Breath sounds equal and clear to auscultation bilaterally. GASTROINTESTINAL: Abdomen soft, non-tender, non-distended. Normal active bowel sounds PSYCH: Appropriate mood and affect. Procedures none A/P Problem List: (1) ESRD (end stage renal disease) on dialysis ICD Code: N18.6 - End stage renal disease; Z99.2 - Dependence on renal dialysis (2) COPD (chronic obstructive pulmonary disease) ICD Code: J44.9 - Chronic obstructive pulmonary disease, unspecified Assessment and Plan 71-year-old male with past medical history significant for atrial fibrillation with RVR, end-stage renal disease on hemodialysis Saturday, COPD, hypertension, CHF and prostate cancer currently homeless who was brought in under [employer] act after patient refused to comply with critical treatment for dialysis and was transferred to inpatient psychiatry. Patient was treated in the medical psych unit and cleared by psychiatry. Patient was discharged to the medical floor for continued treatment of his hemodialysis, COPD. 08/05: Patient is more calm today. Case management still working on placement. Best option would be for him to return back to [place] where he has family as he is a homeless in this area and he needs dialysis. Depression Dialysis noncompliance -Status post management by psychiatry. Labeled as adjustment disorder with depressed mood. ESRD on HD MWF Missed dialysis appointment -Nephrology consulted. On hemodialysis. -On a Saturday, Saturday, Saturday schedule. -Continue patient on home dose of Renvela Hyponatremia -resolved. Atrial fibrillation with CVR. Intermittent RVR with activity but patient is asymptomatic -Continue on Metoprolol 50mg BID -[id number] score 3, patient on ASA only for anticoagulation. Recommend follow up with hiv counselor as an outpatient re novel agent -continue to monitor HR CHF, not decompensated -recent hospitalization for fluid overload -Abnormal chest x-ray with interstitial edema appears euvolemic at this time , continue to monitor fluid status. Discussed with nephrology to consider adjusting hemodialysis -continue on BB. Follow-up echo. EF of 50% LVH Hypertension -Resume patient's home dose of metoprolol 50 mg twice a day -Continue to monitor BP and adjust treatment accordingly -Clonidine prn with parameters COPD, not in acute exacerbation ?Chronic respiratory insufficiency -Patient does not use oxygen at home -O2 sats 88% on RA. Currently requires supplemental oxygen to maintain appropriate O2 saturations. Repeat chest x-ray as above -Patient status post respiratory home oxygen walk test which he completed, recommendations were that the patient needs home O2. Hx of prostate cancer -Outpatient follow-up Chronic N/V -Patient reports extensive negative workup as an outpatient -Resume patient on previous dose of PPI and Carafate DVT prophylaxis -Patient is ambulatory on the unit. Continue subcu heparin Discharge Planning Patient medically cleared for discharge but no accepting facility. Ideally he should return to [place] where he has family. He is homeless in this area. Cherry Pina MD Aug 05, 2017 14:46
[2017-08-05] MEDS: ACETAMINOPHEN 325 MG TAB PO PRN (18:33)
[2017-08-05] MEDS: QUEtiapine FUMARATE 25 MG TAB PO SCH (22:03)
[2017-08-05] MEDS: LORazepam 1 MG TAB PO PRN (23:02)
[2017-08-06] VITALS (8 sets, daily range): BP systolic 125–136; BP diastolic 72–84; PULSE 78–93; RESP 20; TEMP 97.3–98.8; O2SAT 90–92
[2017-08-06] MEDS: diphenhydrAMINE HCL 25 MG CAP PO PRN ×2 (00:26→22:08)
[2017-08-06] MEDS: ACETAMINOPHEN 325 MG TAB PO PRN (00:26)
[2017-08-06] MEDS: HEPARIN SODIUM - SQ 10,000 UNITS/ML VIAL SQ SCH ×2 (06:58→21:00)
[2017-08-06] MEDS: SEVELAMER CARBONATE 800 MG TAB PO SCH ×3 (08:14→16:52)
[2017-08-06] MEDS: guaiFENesin E.R. 600 MG TAB PO SCH ×2 (08:14→21:00)
[2017-08-06] MEDS: ASPIRIN 81 MG CHEW TAB CHEW SCH (08:14)
[2017-08-06] MEDS: PANTOPRAZOLE SOD 40 MG DELAYED RELEASE TAB PO SCH (08:14)
[2017-08-06] MEDS: METOPROLOL TARTRATE 50 MG TAB PO SCH ×2 (08:14→22:07)
[2017-08-06] MEDS: SUCRALFATE 1 GM TAB PO SCH ×4 (08:14→22:07)
[2017-08-06] MEDS: DOCUSATE SODIUM 50 MG/SENNA 8.6 MG TAB PO SCH ×2 (08:14→21:00)
[2017-08-06] MEDS: SERTRALINE HCL 50 MG TAB PO SCH (08:15)
[2017-08-06] MEDS: SODIUM CHLORIDE 0.9% FLUSH 10 ML FLUSH IV FLUSH SCH ×2 (08:15→21:00)
[2017-08-06] MEDS: RESP: ALBUTEROL 0.63 MG/3 ML NEB (PRN) NEB (12:55)
--- NOTE | 2017-08-06 13:43 | HHI.PR ---
Subjective Remarks Patient has no specific complaints. He is unhappy about everything. Objective Vitals Vital Signs Date Time Temp Pulse Resp B/P (MAP) Pulse Ox O2 Delivery O2 Flow Rate FiO2 08/06/17 10:29 92 Nasal Cannula 4.00 08/06/17 08:48 Nasal Cannula 4.00 08/06/17 08:00 97.6 88 20 136/84 (101) 91 08/06/17 04:00 97.6 84 20 132/72 (92) 91 08/06/17 00:22 97.3 78 20 125/72 (89) 92 08/05/17 20:00 97.6 88 20 131/80 (97) 93 08/05/17 18:12 97 Nasal Cannula 2.00 08/05/17 16:00 98.4 84 20 147/86 (106) 94 I/O 08/05/17 08/05/17 08/05/17 08/06/17 08/06/17 08/06/17 07:00 15:00 23:00 07:00 15:00 23:00 Intake Total 360 ml 480 ml Output Total 2300 ml Balance 360 ml -2300 ml 480 ml Intake Oral 360 ml 480 ml Hemodialysis 2300 ml # Voids 0 0 # Bowel Movements 1 2 Result Diagram: 08/05/17 1352 08/05/17 1352 Objective Remarks GENERAL: This is a well-nourished, well-developed patient, in no apparent distress. CARDIOVASCULAR: Normal rate and regular rhythm without murmurs, gallops, or rubs. RESPIRATORY: Good respiratory efforts. Breath sounds equal and clear to auscultation bilaterally. GASTROINTESTINAL: Abdomen soft, non-tender, non-distended. Normal active bowel sounds PSYCH: Irritable mood. Procedures none A/P Problem List: (1) ESRD (end stage renal disease) on dialysis ICD Code: N18.6 - End stage renal disease; Z99.2 - Dependence on renal dialysis (2) COPD (chronic obstructive pulmonary disease) ICD Code: J44.9 - Chronic obstructive pulmonary disease, unspecified Assessment and Plan 71-year-old male with past medical history significant for atrial fibrillation with RVR, end-stage renal disease on hemodialysis Saturday, COPD, hypertension, CHF and prostate cancer currently homeless who was brought in under [employer] act after patient refused to comply with critical treatment for dialysis and was transferred to inpatient psychiatry. Patient was treated in the medical psych unit and cleared by psychiatry. Patient was discharged to the medical floor for continued treatment of his hemodialysis, COPD. 08/06: No new issues. Case management still working on placement. Depression Dialysis noncompliance -Status post management by psychiatry. Labeled as adjustment disorder with depressed mood. ESRD on HD MWF Missed dialysis appointment -Nephrology consulted. On hemodialysis. -On a Saturday, Saturday, Saturday schedule. -Continue patient on home dose of Renvela Hyponatremia -resolved. Atrial fibrillation with CVR. Intermittent RVR with activity but patient is asymptomatic -Continue on Metoprolol 50mg BID -[id number] score 3, patient on ASA only for anticoagulation. Recommend follow up with medical reimbursement specialist as an outpatient re novel agent -continue to monitor HR CHF, not decompensated -recent hospitalization for fluid overload -Abnormal chest x-ray with interstitial edema appears euvolemic at this time , continue to monitor fluid status. Discussed with nephrology to consider adjusting hemodialysis -continue on BB. Follow-up echo. EF of 50% LVH Hypertension -Resume patient's home dose of metoprolol 50 mg twice a day -Continue to monitor BP and adjust treatment accordingly -Clonidine prn with parameters COPD, not in acute exacerbation ?Chronic respiratory insufficiency -Patient does not use oxygen at home -O2 sats 88% on RA. Currently requires supplemental oxygen to maintain appropriate O2 saturations. Repeat chest x-ray as above -Patient status post respiratory home oxygen walk test which he completed, recommendations were that the patient needs home O2. Hx of prostate cancer -Outpatient follow-up Chronic N/V -Patient reports extensive negative workup as an outpatient -Resume patient on previous dose of PPI and Carafate DVT prophylaxis -Patient is ambulatory on the unit. Continue subcu heparin Discharge Planning Patient medically cleared for discharge but no accepting facility. CM working on Placement. Cherry Pina MD Aug 06, 2017 13:43
[2017-08-06] MEDS: QUEtiapine FUMARATE 25 MG TAB PO SCH (22:07)
[2017-08-06] MEDS: LORazepam 1 MG TAB PO PRN (22:08)
[2017-08-07] VITALS: BP 138/90; PULSE 86; RESP 20; TEMP 98.2; O2SAT 96
[2017-08-07] MEDS: RESP: ALBUTEROL 0.63 MG/3 ML NEB (PRN) NEB (00:17)
[2017-08-07] MEDS: diphenhydrAMINE HCL 25 MG CAP PO PRN ×3 (02:27→21:59)
[2017-08-07 06:22] VITALS: BP 129/75; PULSE 83; RESP 18; TEMP 97.7; O2SAT 94
[2017-08-07 08:00] VITALS: BP 129/71; PULSE 85; RESP 16; TEMP 98.1; O2SAT 90
[2017-08-07] MEDS: HEPARIN SODIUM - SQ 10,000 UNITS/ML VIAL SQ SCH ×2 (08:38→21:00)
[2017-08-07] MEDS: SUCRALFATE 1 GM TAB PO SCH ×4 (08:41→21:59)
[2017-08-07] MEDS: ASPIRIN 81 MG CHEW TAB CHEW SCH (08:41)
[2017-08-07] MEDS: guaiFENesin E.R. 600 MG TAB PO SCH ×2 (08:41→21:59)
[2017-08-07] MEDS: SERTRALINE HCL 50 MG TAB PO SCH (08:41)
[2017-08-07] MEDS: SEVELAMER CARBONATE 800 MG TAB PO SCH ×3 (08:41→17:36)
[2017-08-07] MEDS: DOCUSATE SODIUM 50 MG/SENNA 8.6 MG TAB PO SCH ×2 (08:41→21:59)
[2017-08-07] MEDS: PANTOPRAZOLE SOD 40 MG DELAYED RELEASE TAB PO SCH (08:42)
[2017-08-07] MEDS: SODIUM CHLORIDE 0.9% FLUSH 10 ML FLUSH IV FLUSH SCH ×2 (08:42→21:59)
[2017-08-07 08:52] VITALS: O2SAT 97
[2017-08-07] MEDS: LORazepam 2 MG/ML VIAL IV PUSH PRN (12:58)
[2017-08-07] MEDS: HEPARIN SODIUM - IV 10,000 UNITS/10 ML VIAL IV FLUSH PRN (14:19)
[2017-08-07] MEDS: HEPARIN SODIUM - IV 10,000 UNITS/10 ML VIAL PRN (14:19)
[2017-08-07] MEDS: GENTAMICIN SULFATE 20 MG/2 ML VIAL OTHER PRN (14:20)
--- NOTE | 2017-08-07 14:34 | HHI.NPPN ---
Subjective History of Present Illness Patient is 71-year-old homeless male ESRD who was [employer] acted now transferred to medical floor Additional Remarks Patient is alert, no sob Objective Data Data Vital Signs Date Time Temp Pulse Resp B/P (MAP) Pulse Ox O2 Delivery O2 Flow Rate FiO2 08/07/17 08:52 97 Nasal Cannula 3.00 08/07/17 08:00 Nasal Cannula 4.00 08/07/17 08:00 98.1 85 16 129/71 (90) 90 08/07/17 06:22 97.7 83 18 129/75 (93) 94 08/07/17 00:00 98.2 86 20 138/90 (106) 96 08/06/17 23:55 Nasal Cannula 4.00 08/06/17 20:00 98.4 93 20 128/77 (94) 90 08/06/17 17:52 92 Nasal Cannula 4.00 08/06/17 16:00 98.8 87 20 135/84 (101) 90 -: 08/05/17 1352 08/05/17 1352 Physical Exam General Appearance: Well Developed, No Acute Distress Neck Neck Exam: Neck Supple Pulmonary Resp Exam: Breath Sounds Equal, Rhonchi, Sputum, Decreased Bases Cardiology CV Exam: Arrhythmia Gastrointestinal/Abdomen GI Exam: Soft, Non-Tender, Bowel Sounds Present Extremeties Extremities Exam: Trace Edema Neurologic Neuro Exam: Alert, Awake Assessment/Plan Problem List: (1) ESRD (end stage renal disease) on dialysis ICD Codes: N18.6 - End stage renal disease; Z99.2 - Dependence on renal dialysis Plan: hemodialysis to continue Saturday, Saturday and Saturday Patient needs social sciences instructor help as he is homeless History of A. fib. HD to continue MWF. he will need placement Complaining of itching HD seen during hemodialysis tolerating it well, UF 2 L (2) Hypertension ICD Codes: I10 - Essential (primary) hypertension Plan: Continue to monitor blood pressure (3) Adjustment disorder with depressed mood ICD Codes: F43.21 - Adjustment disorder with depressed mood Plan: Patient recently released by psychiatric (4) COPD (chronic obstructive pulmonary disease) ICD Codes: J44.9 - Chronic obstructive pulmonary disease, unspecified Plan: Continue to monitor Problem Qualifiers (1) Hypertension: Qualified Codes: I10 - Essential (primary) hypertension Nic Pinto MD Aug 07, 2017 14:33
--- NOTE | 2017-08-07 17:09 | HHI.PR ---
Subjective Remarks No new issues. Due for dialysis today Objective Vitals Vital Signs Date Time Temp Pulse Resp B/P (MAP) Pulse Ox O2 Delivery O2 Flow Rate FiO2 08/07/17 16:00 Nasal Cannula 4.00 08/07/17 12:00 Nasal Cannula 4.00 08/07/17 08:52 97 Nasal Cannula 3.00 08/07/17 08:00 Nasal Cannula 4.00 08/07/17 08:00 98.1 85 16 129/71 (90) 90 08/07/17 06:22 97.7 83 18 129/75 (93) 94 08/07/17 00:00 98.2 86 20 138/90 (106) 96 08/06/17 23:55 Nasal Cannula 4.00 08/06/17 20:00 98.4 93 20 128/77 (94) 90 08/06/17 17:52 92 Nasal Cannula 4.00 I/O 08/06/17 08/06/17 08/06/17 08/07/17 08/07/17 08/07/17 07:00 15:00 23:00 07:00 15:00 23:00 Intake Total 480 ml Balance 480 ml Intake Oral 480 ml # Voids 0 1 # Bowel Movements 1 0 Result Diagram: 08/05/17 1352 08/05/17 1352 Objective Remarks GENERAL: This is a well-nourished, well-developed patient, in no apparent distress. CARDIOVASCULAR: Normal rate and regular rhythm without murmurs, gallops, or rubs. RESPIRATORY: Good respiratory efforts. Breath sounds equal and clear to auscultation bilaterally. GASTROINTESTINAL: Abdomen soft, non-tender, non-distended. Normal active bowel sounds PSYCH: Irritable mood. Procedures none A/P Problem List: (1) ESRD (end stage renal disease) on dialysis ICD Code: N18.6 - End stage renal disease; Z99.2 - Dependence on renal dialysis (2) COPD (chronic obstructive pulmonary disease) ICD Code: J44.9 - Chronic obstructive pulmonary disease, unspecified Assessment and Plan 71-year-old male with past medical history significant for atrial fibrillation with RVR, end-stage renal disease on hemodialysis Saturday, COPD, hypertension, CHF and prostate cancer currently homeless who was brought in under [employer] act after patient refused to comply with critical treatment for dialysis and was transferred to inpatient psychiatry. Patient was treated in the medical psych unit and cleared by psychiatry. Patient was discharged to the medical floor for continued treatment of his hemodialysis, COPD. 08/07: No new issues. Case management still working on placement. Depression Dialysis noncompliance -Status post management by psychiatry. Labeled as adjustment disorder with depressed mood. ESRD on HD MWF Missed dialysis appointment -Nephrology consulted. On hemodialysis. -On a Saturday, Saturday, Saturday schedule. -Continue patient on home dose of Renvela Hyponatremia -resolved. Atrial fibrillation with CVR. Intermittent RVR with activity but patient is asymptomatic -Continue on Metoprolol 50mg BID -[id number] score 3, patient on ASA only for anticoagulation. Recommend follow up with [employer]oft functional analyst as an outpatient re novel agent -continue to monitor HR CHF, not decompensated -recent hospitalization for fluid overload -Abnormal chest x-ray with interstitial edema appears euvolemic at this time , continue to monitor fluid status. Discussed with nephrology to consider adjusting hemodialysis -continue on BB. Follow-up echo. EF of 50% LVH Hypertension -Resume patient's home dose of metoprolol 50 mg twice a day -Continue to monitor BP and adjust treatment accordingly -Clonidine prn with parameters COPD, not in acute exacerbation ?Chronic respiratory insufficiency -Patient does not use oxygen at home -O2 sats 88% on RA. Currently requires supplemental oxygen to maintain appropriate O2 saturations. Repeat chest x-ray as above -Patient status post respiratory home oxygen walk test which he completed, recommendations were that the patient needs home O2. Hx of prostate cancer -Outpatient follow-up Chronic N/V -Patient reports extensive negative workup as an outpatient -Resume patient on previous dose of PPI and Carafate DVT prophylaxis -Patient is ambulatory on the unit. Continue subcu heparin Discharge Planning Patient medically cleared for discharge but no accepting facility. CM working on Placement. Cherry Pina MD Aug 07, 2017 17:09
[2017-08-07] MEDS: CALCITRIOL 0.25 MCG CAP PO SCH (17:36)
[2017-08-07] MEDS: ONDANSETRON HCL 4 MG/2 ML VIAL IVP PRN (17:37)
[2017-08-07] MEDS: METOPROLOL TARTRATE 50 MG TAB PO SCH ×2 (17:38→21:59)
[2017-08-07 20:00] VITALS: BP_SYST 130; BP_SYST 138; BP_DIAS 74; BP_DIAS 79; PULSE 78; PULSE 97; RESP 13; RESP 16; TEMP 100.3; TEMP 96.4; O2SAT 89; O2SAT 99
[2017-08-07] MEDS: QUEtiapine FUMARATE 25 MG TAB PO SCH (21:59)
[2017-08-07] MEDS: LORazepam 1 MG TAB PO PRN (22:00)
[2017-08-08] VITALS (8 sets, daily range): BP systolic 95–133; BP diastolic 52–77; PULSE 77–92; RESP 16–20; TEMP 96.8–98.7; O2SAT 92–96
[2017-08-08] MEDS: DOCUSATE SODIUM 50 MG/SENNA 8.6 MG TAB PO SCH ×2 (08:58→20:25)
[2017-08-08] MEDS: HEPARIN SODIUM - SQ 10,000 UNITS/ML VIAL SQ SCH ×2 (08:59→20:25)
[2017-08-08] MEDS: SUCRALFATE 1 GM TAB PO SCH ×4 (09:00→20:22)
[2017-08-08] MEDS: PANTOPRAZOLE SOD 40 MG DELAYED RELEASE TAB PO SCH (09:00)
[2017-08-08] MEDS: guaiFENesin E.R. 600 MG TAB PO SCH ×2 (09:00→20:22)
[2017-08-08] MEDS: METOPROLOL TARTRATE 50 MG TAB PO SCH ×2 (09:00→20:23)
[2017-08-08] MEDS: SEVELAMER CARBONATE 800 MG TAB PO SCH ×3 (09:00→17:21)
[2017-08-08] MEDS: ASPIRIN 81 MG CHEW TAB CHEW SCH (09:00)
[2017-08-08] MEDS: SERTRALINE HCL 50 MG TAB PO SCH (09:00)
[2017-08-08] MEDS: SODIUM CHLORIDE 0.9% FLUSH 10 ML FLUSH IV FLUSH SCH ×2 (09:01→20:25)
--- NOTE | 2017-08-08 15:36 | HHI.PR ---
Subjective Remarks Patient reports he is doing ok. No new complaints. Objective Vitals Vital Signs Date Time Temp Pulse Resp B/P (MAP) Pulse Ox O2 Delivery O2 Flow Rate FiO2 08/08/17 12:00 Nasal Cannula 4.00 08/08/17 09:11 96 Nasal Cannula 3.00 08/08/17 08:04 98.5 86 17 118/71 (87) 96 08/08/17 08:00 Nasal Cannula 4.00 08/08/17 08:00 96.8 90 20 133/74 (93) 96 08/08/17 04:00 98.5 92 20 108/64 (79) 08/08/17 04:00 94 08/08/17 00:00 98.7 77 20 103/52 (69) 08/07/17 21:27 Nasal Cannula 3.00 08/07/17 20:00 96.4 78 13 138/79 (98) 89 08/07/17 20:00 100.3 97 16 130/74 (92) 99 08/07/17 19:45 Nasal Cannula 4.00 08/07/17 16:00 Nasal Cannula 4.00 I/O 08/07/17 08/07/17 08/07/17 08/08/17 08/08/17 08/08/17 07:00 15:00 23:00 07:00 15:00 23:00 Intake Total 240 ml 600 ml Balance 240 ml 600 ml Intake Oral 240 ml 600 ml # Voids 1 6 # Bowel Movements 0 1 Result Diagram: 08/05/17 1352 08/05/17 1352 Objective Remarks GENERAL: This is a well-nourished, well-developed patient, in no apparent distress. CARDIOVASCULAR: Normal rate and regular rhythm without murmurs, gallops, or rubs. RESPIRATORY: Good respiratory efforts. Breath sounds equal and clear to auscultation bilaterally. GASTROINTESTINAL: Abdomen soft, non-tender, non-distended. Normal active bowel sounds PSYCH: Calm Procedures none A/P Problem List: (1) ESRD (end stage renal disease) on dialysis ICD Code: N18.6 - End stage renal disease; Z99.2 - Dependence on renal dialysis (2) COPD (chronic obstructive pulmonary disease) ICD Code: J44.9 - Chronic obstructive pulmonary disease, unspecified Assessment and Plan 71-year-old male with past medical history significant for atrial fibrillation with RVR, end-stage renal disease on hemodialysis Saturday, COPD, hypertension, CHF and prostate cancer currently homeless who was brought in under [employer] act after patient reportedly refused to comply with critical treatment for dialysis and was transferred to inpatient psychiatry. Patient was treated in the medical psych unit and cleared by psychiatry. Patient was discharged to the medical floor for continued treatment of his hemodialysis, COPD. 08/08: No new issues. Case management following for placement. Patient may need to go back to the initial facility who sent him here as he is no longer [employer] acted. Depression Dialysis noncompliance -Status post management by psychiatry. Labeled as adjustment disorder with depressed mood. ESRD on HD MWF Missed dialysis appointment -Nephrology consulted. On hemodialysis. -On a Saturday, Saturday, Saturday schedule. -Continue patient on home dose of Renvela Hyponatremia -resolved. Atrial fibrillation with CVR. Intermittent RVR with activity but patient is asymptomatic -Continue on Metoprolol 50mg BID -[id number] score 3, patient on ASA only for anticoagulation. Recommend follow up with cemetery keeper as an outpatient re novel agent -continue to monitor HR CHF, not decompensated -recent hospitalization for fluid overload -Abnormal chest x-ray with interstitial edema appears euvolemic at this time , continue to monitor fluid status. Discussed with nephrology to consider adjusting hemodialysis -continue on BB. Follow-up echo. EF of 50% LVH Hypertension -Resume patient's home dose of metoprolol 50 mg twice a day -Continue to monitor BP and adjust treatment accordingly -Clonidine prn with parameters COPD, not in acute exacerbation ?Chronic respiratory insufficiency -Patient does not use oxygen at home -O2 sats 88% on RA. Currently requires supplemental oxygen to maintain appropriate O2 saturations. Repeat chest x-ray as above -Patient status post respiratory home oxygen walk test which he completed, recommendations were that the patient needs home O2. Hx of prostate cancer -Outpatient follow-up Chronic N/V -Patient reports extensive negative workup as an outpatient -Resume patient on previous dose of PPI and Carafate DVT prophylaxis -Patient is ambulatory on the unit. Continue subcu heparin Discharge Planning Patient medically cleared for discharge but no accepting facility. CM working on Placement. Cherry Pina MD Aug 08, 2017 15:36
[2017-08-08] MEDS: diphenhydrAMINE HCL 25 MG CAP PO PRN ×2 (17:41→23:39)
[2017-08-08] MEDS: QUEtiapine FUMARATE 25 MG TAB PO SCH (20:22)
[2017-08-08] MEDS: ACETAMINOPHEN 325 MG TAB PO PRN (20:24)
[2017-08-08] MEDS: guaiFENesin/CODEINE SYRUP 200 MG/20 MG/10 ML CUP PO PRN (20:31)
[2017-08-08] MEDS: LORazepam 1 MG TAB PO PRN (23:44)
[2017-08-09] VITALS (7 sets, daily range): BP systolic 111–144; BP diastolic 70–84; PULSE 76–94; RESP 16–20; TEMP 97.6–98.6; O2SAT 92–100
[2017-08-09] MEDS: RESP: ALBUTEROL 0.63 MG/3 ML NEB (PRN) NEB (01:14)
[2017-08-09] MEDS: SODIUM CHLORIDE 0.9% FLUSH 10 ML FLUSH IV FLUSH SCH ×2 (07:14→20:42)
[2017-08-09] MEDS: SUCRALFATE 1 GM TAB PO SCH ×4 (08:00→20:41)
[2017-08-09] MEDS: SEVELAMER CARBONATE 800 MG TAB PO SCH ×3 (08:00→17:17)
[2017-08-09] MEDS: LORazepam 2 MG/ML VIAL IV PUSH PRN (08:07)
[2017-08-09] MEDS: diphenhydrAMINE HCL 25 MG CAP PO PRN ×2 (08:11→10:49)
--- NOTE | 2017-08-09 09:02 | HHI.PR ---
Subjective Remarks This is a pleasant 71 y/o Male Seen in his bedroom no new issues discussed on MDR and not yet found placement Objective Vital Signs Date Time Temp Pulse Resp B/P (MAP) Pulse Ox O2 Delivery O2 Flow Rate FiO2 08/09/17 07:40 98.1 83 16 125/72 (89) 92 08/09/17 04:00 Nasal Cannula 4.00 08/09/17 03:20 97.6 76 16 140/84 (102) 92 08/09/17 00:00 Nasal Cannula 4.00 08/08/17 23:32 98.4 86 16 95/55 (68) 92 08/08/17 19:37 98.7 80 16 127/77 (94) 95 08/08/17 17:36 96 Nasal Cannula 3.00 08/08/17 16:00 Nasal Cannula 4.00 08/08/17 12:00 Nasal Cannula 4.00 08/08/17 09:11 96 Nasal Cannula 3.00 I/O 08/08/17 08/08/17 08/08/17 08/09/17 08/09/17 08/09/17 07:00 15:00 23:00 07:00 15:00 23:00 Intake Total 240 ml 600 ml 480 ml Output Total 0 ml Balance 240 ml 600 ml 480 ml Intake Oral 240 ml 600 ml 480 ml Output Urine Total 0 ml # Voids 6 # Bowel Movements 1 1 Result Diagram: 08/05/17 1352 08/05/17 1352 Imaging Last Impressions Chest X-Ray 07/20/17 0000 Signed Impressions: Service Date/Time: Thursday, July 20, 2017 16:18 - CONCLUSION: Interstitial edema suspected. Kalen Baeza MD Procedures None Other Results Laboratory Tests Test 07/18/17 07:30 07/25/17 07:45 07/27/17 13:58 08/05/17 13:52 Hematology Comments Blood Urea Nitrogen 43 MG/DL 52 MG/DL Creatinine 9.28 MG/DL 7.49 MG/DL Random Glucose 88 MG/DL 114 MG/DL Calcium Level 9.3 MG/DL 9.4 MG/DL Magnesium Level 2.2 MG/DL Sodium Level 139 MEQ/L 138 MEQ/L Potassium Level 4.5 MEQ/L 3.9 MEQ/L Chloride Level 100 MEQ/L 97 MEQ/L Carbon Dioxide Level 31.0 MEQ/L 30.9 MEQ/L Neutrophils (%) (Auto) 74.5 % Lymphocytes (%) (Auto) 10.7 % Monocytes (%) (Auto) 8.9 % Eosinophils (%) (Auto) 5.0 % Basophils (%) (Auto) 0.9 % Neutrophils # (Auto) 6.9 TH/MM3 Lymphocytes # (Auto) 1.0 TH/MM3 Monocytes # (Auto) 0.8 TH/MM3 Eosinophils # (Auto) 0.5 TH/MM3 Basophils # (Auto) 0.1 TH/MM3 CBC Comment DIFF FINAL Differential Comment White Blood Count 7.9 TH/MM3 Red Blood Count 4.20 MIL/MM3 Hemoglobin 11.3 GM/DL Hematocrit 34.2 % Mean Corpuscular Volume 81.5 FL Mean Corpuscular Hemoglobin 27.0 PG Mean Corpuscular Hemoglobin Concent 33.1 % Red Cell Distribution Width 18.8 % Platelet Count 349 TH/MM3 Mean Platelet Volume 7.9 FL Anion Gap 10 MEQ/L Estimat Glomerular Filtration Rate 9 ML/MIN Objective Remarks GENERAL: This is a well-nourished, well-developed patient, in no apparent distress. CARDIOVASCULAR: Normal rate and regular rhythm without murmurs, gallops, or rubs. RESPIRATORY: Good respiratory efforts. Breath sounds equal and clear to auscultation bilaterally. GASTROINTESTINAL: Abdomen soft, non-tender, non-distended. Normal active bowel sounds PSYCH: Calm Medications and IVs Current Medications Medications (Trade) Dose Ordered Sig/Leandro Route Start Time Stop Time Status Last Admin (NS Flush) 2 ml UNSCH PRN IV FLUSH 07/16/17 23:45 (NS Flush) 2 ml BID IV FLUSH 07/17/17 09:00 08/09/17 07:14 (Tylenol) 650 mg Q4H PRN PO 07/16/17 23:45 08/05/17 18:33 (Zofran Inj) 4 mg Q6H PRN IVP 07/16/17 23:45 08/07/17 17:37 (Heparin Inj) 5,000 units Q12H SQ 07/17/17 09:00 07/29/17 12:04 (Narcan Inj) 0.4 mg UNSCH PRN IV PUSH 07/16/17 23:45 (Faith-Colace) 1 tab BID PO 07/17/17 09:00 08/07/17 21:59 (Milk Of Magnesia Liq) 30 ml Q12H PRN PO 07/16/17 23:45 (Senokot) 17.2 mg Q12H PRN PO 07/16/17 23:45 (Dulcolax Supp) 10 mg DAILY PRN RECTAL 07/16/17 23:45 (Lactulose Liq) 30 ml DAILY PRN PO 07/16/17 23:45 (Aspirin Chew) 81 mg DAILY CHEW 07/17/17 09:00 08/08/17 09:00 (Lopressor) 50 mg BID PO 07/17/17 09:00 08/08/17 20:23 (Renvela) 800 mg TIDAC PO 07/17/17 08:00 08/08/17 17:21 Sodium Chloride 1,000 ml @ 0 mls/hr Q0M PRN OTHER 07/17/17 00:02 (Heparin Inj) 8,000 units UNSCH PRN IV FLUSH 07/17/17 00:15 08/07/17 14:19 Sodium Chloride 1,000 ml @ 200 mls/hr Q5H PRN IV 07/17/17 00:02 Sodium Chloride 1,000 ml @ 0 mls/hr Q0M PRN OTHER 07/17/17 00:02 (Mannitol Inj) 12.5 gm UNSCH PRN IV 07/17/17 00:15 Albumin Human 100 ml @ 60 mls/hr UNSCH PRN IV 07/17/17 00:15 07/24/17 11:23 (NS Flush) 5 ml UNSCH PRN IV FLUSH 07/17/17 00:15 (Heparin Inj) UNSCH PRN .XX 07/17/17 00:15 08/07/17 14:19 (Gentamicin Inj) 20 mg UNSCH PRN OTHER 07/17/17 00:15 08/07/17 14:20 (Zofran Inj) 4 mg UNSCH PRN IV PUSH 07/17/17 00:15 07/26/17 15:34 (Tylenol) 650 mg UNSCH PRN PO 07/17/17 00:15 08/08/17 20:24 (Benadryl) 25 mg UNSCH PRN PO 07/17/17 00:15 08/09/17 08:11 (Nitrostat Sl) 0.4 mg UNSCH PRN SL 07/17/17 00:15 (Catapres) 0.1 mg UNSCH PRN PO 07/17/17 00:15 (Gelfoam 12 Mm/7 Mm Top) 1 foam UNSCH PRN TOP 07/17/17 00:15 (Rocaltrol) 1 mcg MoWeFr PO 07/19/17 15:00 08/07/17 17:36 (Protonix) 40 mg DAILY PO 07/19/17 09:00 08/08/17 09:00 (Ativan) 1 mg HS PRN PO 07/18/17 18:15 08/08/17 23:44 (SEROquel) 25 mg HS PO 07/18/17 21:00 08/08/17 20:22 (Zoloft) 50 mg DAILY PO 07/19/17 09:00 08/08/17 09:00 (Carafate) 1 gm ACHS PO 07/18/17 21:00 08/08/17 20:22 (Caladryl Lotion) 1 applic Q12HR PRN TOPICAL 07/18/17 21:00 08/04/17 01:21 (Albuterol Neb) 0.63 mg Q4HR NEB PRN NEB 07/19/17 16:30 08/09/17 01:14 (Mucinex Er) 600 mg BID PO 07/20/17 11:30 08/08/17 20:22 (Tessalon) 200 mg Q8H PRN PO 07/20/17 17:15 07/24/17 00:53 (Benadryl) 25 mg Q6H PRN PO 07/20/17 17:15 08/08/17 23:39 (Robitussin Ac 200-20 Mg/10 ml Liq) 10 ml Q4H PRN PO 07/21/17 12:30 08/08/17 20:31 (Ativan Inj) 1 mg Q6H PRN IV PUSH 07/22/17 13:00 08/09/17 08:07 A/P Assessment and Plan (1) ESRD (end stage renal disease) on dialysis ICD Code: N18.6 - End stage renal disease; Z99.2 - Dependence on renal dialysis (2) COPD (chronic obstructive pulmonary disease) ICD Code: J44.9 - Chronic obstructive pulmonary disease, unspecified 71-year-old male with past medical history significant for atrial fibrillation with RVR, end-stage renal disease on hemodialysis Saturday, COPD, hypertension, CHF and prostate cancer currently homeless who was brought in under [employer] act after patient reportedly refused to comply with critical treatment for dialysis and was transferred to inpatient psychiatry. Patient was treated in the medical psych unit and cleared by psychiatry. Patient was discharged to the medical floor for continued treatment of his hemodialysis, COPD. 08/08: No new issues. Case management following for placement. Patient may need to go back to the initial facility who sent him here as he is no longer [facility]. Depression Dialysis noncompliance -Status post management by psychiatry. Labeled as adjustment disorder with depressed mood. ESRD on HD MWF Missed dialysis appointment -Nephrology consulted. On hemodialysis. -On a Saturday, Saturday, Saturday schedule. -Continue patient on home dose of Renvela Hyponatremia -resolved. Atrial fibrillation with CVR. Intermittent RVR with activity but patient is asymptomatic -Continue on Metoprolol 50mg BID -[id number] score 3, patient on ASA only for anticoagulation. Recommend follow up with cell plasterer as an outpatient re novel agent -continue to monitor HR CHF, not decompensated -recent hospitalization for fluid overload -Abnormal chest x-ray with interstitial edema appears euvolemic at this time , continue to monitor fluid status. Discussed with nephrology to consider adjusting hemodialysis -continue on BB. Follow-up echo. EF of 50% LVH Hypertension -Resume patient's home dose of metoprolol 50 mg twice a day -Continue to monitor BP and adjust treatment accordingly -Clonidine prn with parameters COPD, not in acute exacerbation ?Chronic respiratory insufficiency -Patient does not use oxygen at home -O2 sats 88% on RA. Currently requires supplemental oxygen to maintain appropriate O2 saturations. Repeat chest x-ray as above -Patient status post respiratory home oxygen walk test which he completed, recommendations were that the patient needs home O2. Hx of prostate cancer -Outpatient follow-up Chronic N/V -Patient reports extensive negative workup as an outpatient -Resume patient on previous dose of PPI and Carafate DVT prophylaxis -Patient is ambulatory on the unit. Heparin No change to anterior assessment awaiting for placement Discharge Planning Patient medically cleared for discharge but no accepting facility. CM working on Placement. Neno Al MD Aug 09, 2017 09:02
[2017-08-09] MEDS: GENTAMICIN SULFATE 20 MG/2 ML VIAL OTHER PRN (09:27)
[2017-08-09] MEDS: HEPARIN SODIUM - IV 10,000 UNITS/10 ML VIAL PRN (09:27)
[2017-08-09] MEDS: METOPROLOL TARTRATE 50 MG TAB PO SCH ×2 (11:56→20:41)
[2017-08-09] MEDS: PANTOPRAZOLE SOD 40 MG DELAYED RELEASE TAB PO SCH (11:56)
[2017-08-09] MEDS: DOCUSATE SODIUM 50 MG/SENNA 8.6 MG TAB PO SCH ×2 (11:56→20:41)
[2017-08-09] MEDS: guaiFENesin E.R. 600 MG TAB PO SCH ×2 (11:56→20:41)
[2017-08-09] MEDS: SERTRALINE HCL 50 MG TAB PO SCH (11:57)
[2017-08-09] MEDS: ASPIRIN 81 MG CHEW TAB CHEW SCH (11:57)
[2017-08-09] MEDS: HEPARIN SODIUM - SQ 10,000 UNITS/ML VIAL SQ SCH ×2 (11:57→20:42)
[2017-08-09] MEDS: CALCITRIOL 0.25 MCG CAP PO SCH (16:13)
--- NOTE | 2017-08-09 16:20 | HHI.NPPN ---
Subjective History of Present Illness Patient is 71-year-old homeless male ESRD who was [facility] now transferred to medical floor Additional Remarks Patient is alert, no sob. c/o itching Objective Data Data 08/09/17 08/10/17 19:00 07:00 Output Total 3000 ml Balance -3000 ml Hemodialysis 3000 ml Vital Signs Date Time Temp Pulse Resp B/P (MAP) Pulse Ox O2 Delivery O2 Flow Rate FiO2 08/09/17 12:00 98.1 94 20 144/81 (102) 94 08/09/17 07:40 98.1 83 16 125/72 (89) 92 08/09/17 04:00 Nasal Cannula 4.00 08/09/17 03:20 97.6 76 16 140/84 (102) 92 08/09/17 00:00 Nasal Cannula 4.00 08/08/17 23:32 98.4 86 16 95/55 (68) 92 08/08/17 19:37 98.7 80 16 127/77 (94) 95 08/08/17 17:36 96 Nasal Cannula 3.00 -: 08/05/17 1352 08/05/17 1352 Physical Exam General Appearance: Well Developed, No Acute Distress Neck Neck Exam: Neck Supple Pulmonary Resp Exam: Breath Sounds Equal, Rhonchi, Sputum, Decreased Bases Cardiology CV Exam: Arrhythmia Gastrointestinal/Abdomen GI Exam: Soft, Non-Tender, Bowel Sounds Present Extremeties Extremities Exam: Trace Edema Neurologic Neuro Exam: Alert, Awake Assessment/Plan Problem List: (1) ESRD (end stage renal disease) on dialysis ICD Codes: N18.6 - End stage renal disease; Z99.2 - Dependence on renal dialysis Plan: hemodialysis to continue Saturday, Saturday and Saturday Patient needs geriatric social work professor help as he is homeless History of A. fib. HD to continue MWF. he will need placement Complaining of itching use Eucerin cream, Atarax, HD done earlier UF 3 L (2) Hypertension ICD Codes: I10 - Essential (primary) hypertension Plan: Continue to monitor blood pressure (3) Adjustment disorder with depressed mood ICD Codes: F43.21 - Adjustment disorder with depressed mood Plan: Patient recently released by psychiatric (4) COPD (chronic obstructive pulmonary disease) ICD Codes: J44.9 - Chronic obstructive pulmonary disease, unspecified Plan: Continue to monitor Problem Qualifiers (1) Hypertension: Qualified Codes: I10 - Essential (primary) hypertension Nic Pinto MD Aug 09, 2017 16:20
[2017-08-09] MEDS ORDERED: EUCERIN CREAM 120 GM JAR TOPICAL PRN (16:30)
[2017-08-09] MEDS: hydrOXYzine HCL 25 MG TAB PO SCH ×2 (17:17→20:41)
[2017-08-09] MEDS: QUEtiapine FUMARATE 25 MG TAB PO SCH (20:41)
[2017-08-09] MEDS: ACETAMINOPHEN 325 MG TAB PO PRN (20:42)
[2017-08-09] MEDS: guaiFENesin/CODEINE SYRUP 200 MG/20 MG/10 ML CUP PO PRN (20:42)
[2017-08-09] MEDS: LORazepam 1 MG TAB PO PRN (20:42)
[2017-08-10] VITALS (13 sets, daily range): BP systolic 111–146; BP diastolic 66–84; PULSE 57–94; RESP 16–21; TEMP 97.4–98.1; O2SAT 89–99
[2017-08-10] MEDS: hydrOXYzine HCL 25 MG TAB PO SCH ×3 (06:08→20:53)
[2017-08-10] MEDS: HEPARIN SODIUM - SQ 10,000 UNITS/ML VIAL SQ SCH ×2 (09:00→20:54)
[2017-08-10] MEDS: DOCUSATE SODIUM 50 MG/SENNA 8.6 MG TAB PO SCH ×2 (09:00→20:53)
[2017-08-10] MEDS: guaiFENesin E.R. 600 MG TAB PO SCH ×2 (09:49→20:54)
[2017-08-10] MEDS: PANTOPRAZOLE SOD 40 MG DELAYED RELEASE TAB PO SCH (09:49)
[2017-08-10] MEDS: METOPROLOL TARTRATE 50 MG TAB PO SCH ×2 (09:49→20:54)
[2017-08-10] MEDS: SERTRALINE HCL 50 MG TAB PO SCH (09:49)
[2017-08-10] MEDS: ASPIRIN 81 MG CHEW TAB CHEW SCH (09:49)
[2017-08-10] MEDS: SUCRALFATE 1 GM TAB PO SCH ×4 (09:50→20:53)
[2017-08-10] MEDS: SEVELAMER CARBONATE 800 MG TAB PO SCH ×3 (09:50→18:09)
[2017-08-10] MEDS: SODIUM CHLORIDE 0.9% FLUSH 10 ML FLUSH IV FLUSH SCH ×2 (09:51→20:54)
[2017-08-10] MEDS: BENZONATATE 100 MG CAP PO PRN (09:54)
--- NOTE | 2017-08-10 10:21 | HHI.PR ---
Subjective Remarks This is a pleasant 71 y/o Male Stable he has ESRD on Hemodialysis, to continue on Saturday, Saturday and Saturday, he is Homeless not been able to discharge home yet needs placement, No nausea, vomit or diarrhea. Objective Vital Signs Date Time Temp Pulse Resp B/P (MAP) Pulse Ox O2 Delivery O2 Flow Rate FiO2 08/10/17 08:00 97.8 82 20 129/66 (87) 91 08/10/17 03:23 97.4 78 18 111/68 (82) 92 08/09/17 23:06 98.4 83 18 123/70 (87) 93 08/09/17 21:42 16 08/09/17 20:26 94 Nasal Cannula 4.00 08/09/17 19:30 98.6 80 18 111/71 (84) 94 08/09/17 16:00 98.1 80 20 131/79 (96) 100 08/09/17 12:00 98.1 94 20 144/81 (102) 94 I/O 08/09/17 08/09/17 08/09/17 08/10/17 08/10/17 08/10/17 07:00 15:00 23:00 07:00 15:00 23:00 Intake Total 480 ml 480 ml 480 ml Output Total 0 ml 3000 ml 0 ml Balance 480 ml -3000 ml 480 ml 480 ml Intake Oral 480 ml 480 ml 480 ml Output Urine Total 0 ml 0 ml Hemodialysis 3000 ml # Voids 0 # Bowel Movements 1 0 1 Imaging Last Impressions Chest X-Ray 07/20/17 0000 Signed Impressions: Service Date/Time: Thursday, July 20, 2017 16:18 - CONCLUSION: Interstitial edema suspected. Kalen Baeza MD Procedures None Other Results Laboratory Tests Test 07/18/17 07:30 07/25/17 07:45 07/27/17 13:58 08/05/17 13:52 Hematology Comments Blood Urea Nitrogen 43 MG/DL 52 MG/DL Creatinine 9.28 MG/DL 7.49 MG/DL Random Glucose 88 MG/DL 114 MG/DL Calcium Level 9.3 MG/DL 9.4 MG/DL Magnesium Level 2.2 MG/DL Sodium Level 139 MEQ/L 138 MEQ/L Potassium Level 4.5 MEQ/L 3.9 MEQ/L Chloride Level 100 MEQ/L 97 MEQ/L Carbon Dioxide Level 31.0 MEQ/L 30.9 MEQ/L Neutrophils (%) (Auto) 74.5 % Lymphocytes (%) (Auto) 10.7 % Monocytes (%) (Auto) 8.9 % Eosinophils (%) (Auto) 5.0 % Basophils (%) (Auto) 0.9 % Neutrophils # (Auto) 6.9 TH/MM3 Lymphocytes # (Auto) 1.0 TH/MM3 Monocytes # (Auto) 0.8 TH/MM3 Eosinophils # (Auto) 0.5 TH/MM3 Basophils # (Auto) 0.1 TH/MM3 CBC Comment DIFF FINAL Differential Comment White Blood Count 7.9 TH/MM3 Red Blood Count 4.20 MIL/MM3 Hemoglobin 11.3 GM/DL Hematocrit 34.2 % Mean Corpuscular Volume 81.5 FL Mean Corpuscular Hemoglobin 27.0 PG Mean Corpuscular Hemoglobin Concent 33.1 % Red Cell Distribution Width 18.8 % Platelet Count 349 TH/MM3 Mean Platelet Volume 7.9 FL Anion Gap 10 MEQ/L Estimat Glomerular Filtration Rate 9 ML/MIN Objective Remarks GENERAL: This is a well-nourished, well-developed patient, in no apparent distress. CARDIOVASCULAR: Normal rate and regular rhythm without murmurs, gallops, or rubs. RESPIRATORY: Good respiratory efforts. Breath sounds equal and clear to auscultation bilaterally. GASTROINTESTINAL: Abdomen soft, non-tender, non-distended. Normal active bowel sounds PSYCH: Calm Medications and IVs Current Medications Medications (Trade) Dose Ordered Sig/Leandro Route Start Time Stop Time Status Last Admin (NS Flush) 2 ml UNSCH PRN IV FLUSH 07/16/17 23:45 (NS Flush) 2 ml BID IV FLUSH 07/17/17 09:00 08/10/17 09:51 (Tylenol) 650 mg Q4H PRN PO 07/16/17 23:45 08/05/17 18:33 (Zofran Inj) 4 mg Q6H PRN IVP 07/16/17 23:45 08/07/17 17:37 (Heparin Inj) 5,000 units Q12H SQ 07/17/17 09:00 08/09/17 11:57 (Narcan Inj) 0.4 mg UNSCH PRN IV PUSH 07/16/17 23:45 (Faith-Colace) 1 tab BID PO 07/17/17 09:00 08/09/17 20:41 (Milk Of Magnesia Liq) 30 ml Q12H PRN PO 07/16/17 23:45 (Senokot) 17.2 mg Q12H PRN PO 07/16/17 23:45 (Dulcolax Supp) 10 mg DAILY PRN RECTAL 07/16/17 23:45 (Lactulose Liq) 30 ml DAILY PRN PO 07/16/17 23:45 (Aspirin Chew) 81 mg DAILY CHEW 07/17/17 09:00 08/10/17 09:49 (Lopressor) 50 mg BID PO 07/17/17 09:00 08/10/17 09:49 Sodium Chloride 1,000 ml @ 0 mls/hr Q0M PRN OTHER 07/17/17 00:02 (Heparin Inj) 8,000 units UNSCH PRN IV FLUSH 07/17/17 00:15 08/07/17 14:19 Sodium Chloride 1,000 ml @ 200 mls/hr Q5H PRN IV 07/17/17 00:02 Sodium Chloride 1,000 ml @ 0 mls/hr Q0M PRN OTHER 07/17/17 00:02 (Mannitol Inj) 12.5 gm UNSCH PRN IV 07/17/17 00:15 Albumin Human 100 ml @ 60 mls/hr UNSCH PRN IV 07/17/17 00:15 07/24/17 11:23 (NS Flush) 5 ml UNSCH PRN IV FLUSH 07/17/17 00:15 (Heparin Inj) UNSCH PRN .XX 07/17/17 00:15 08/09/17 09:27 (Gentamicin Inj) 20 mg UNSCH PRN OTHER 07/17/17 00:15 08/09/17 09:27 (Zofran Inj) 4 mg UNSCH PRN IV PUSH 07/17/17 00:15 07/26/17 15:34 (Tylenol) 650 mg UNSCH PRN PO 07/17/17 00:15 08/09/17 20:42 (Benadryl) 25 mg UNSCH PRN PO 07/17/17 00:15 08/09/17 08:11 (Nitrostat Sl) 0.4 mg UNSCH PRN SL 07/17/17 00:15 (Catapres) 0.1 mg UNSCH PRN PO 07/17/17 00:15 (Gelfoam 12 Mm/7 Mm Top) 1 foam UNSCH PRN TOP 07/17/17 00:15 (Rocaltrol) 1 mcg MoWeFr PO 07/19/17 15:00 08/09/17 16:13 (Protonix) 40 mg DAILY PO 07/19/17 09:00 08/10/17 09:49 (Ativan) 1 mg HS PRN PO 07/18/17 18:15 08/09/17 20:42 (SEROquel) 25 mg HS PO 07/18/17 21:00 08/09/17 20:41 (Zoloft) 50 mg DAILY PO 07/19/17 09:00 08/10/17 09:49 (Carafate) 1 gm ACHS PO 07/18/17 21:00 08/10/17 09:50 (Caladryl Lotion) 1 applic Q12HR PRN TOPICAL 07/18/17 21:00 08/04/17 01:21 (Albuterol Neb) 0.63 mg Q4HR NEB PRN NEB 07/19/17 16:30 08/09/17 01:14 (Mucinex Er) 600 mg BID PO 07/20/17 11:30 08/10/17 09:49 (Tessalon) 200 mg Q8H PRN PO 07/20/17 17:15 08/10/17 09:54 (Benadryl) 25 mg Q6H PRN PO 07/20/17 17:15 08/09/17 10:49 (Robitussin Ac 200-20 Mg/10 ml Liq) 10 ml Q4H PRN PO 07/21/17 12:30 08/09/17 20:42 (Ativan Inj) 1 mg Q6H PRN IV PUSH 07/22/17 13:00 08/09/17 08:07 (Renvela) 1,600 mg TIDAC PO 08/09/17 17:00 08/10/17 09:50 (Atarax) 25 mg Q8HR PO 08/09/17 17:00 08/10/17 06:08 (Eucerin Cream) 1 applic Q6H PRN TOPICAL 08/09/17 16:30 A/P Assessment and Plan (1) ESRD (end stage renal disease) on dialysis ICD Code: N18.6 - End stage renal disease; Z99.2 - Dependence on renal dialysis (2) COPD (chronic obstructive pulmonary disease) ICD Code: J44.9 - Chronic obstructive pulmonary disease, unspecified 71-year-old male with past medical history significant for atrial fibrillation with RVR, end-stage renal disease on hemodialysis Saturday, COPD, hypertension, CHF and prostate cancer currently homeless who was brought in under [employer] [facility] after patient reportedly refused to comply with critical treatment for dialysis and was transferred to inpatient psychiatry. Patient was treated in the medical psych unit and cleared by psychiatry. Patient was discharged to the medical floor for continued treatment of his hemodialysis, COPD. 08/08: No new issues. Case management following for placement. Patient may need to go back to the initial facility who sent him here as he is no longer [facility]. Depression Dialysis noncompliance -Status post management by psychiatry. Labeled as adjustment disorder with depressed mood. ESRD on HD MWF Missed dialysis appointment -Nephrology consulted. On hemodialysis. -On a Saturday, Saturday, Saturday schedule. -Continue patient on home dose of Renvela Atrial fibrillation with CVR. Intermittent RVR with activity but patient is asymptomatic -Continue on Metoprolol 50mg BID -[id number] score 3, patient on ASA only for anticoagulation. Recommend follow up with enamel sprayer as an outpatient re novel agent -continue to monitor HR CHF, not decompensated -recent hospitalization for fluid overload -Abnormal chest x-ray with interstitial edema appears euvolemic at this time , continue to monitor fluid status. Discussed with nephrology to consider adjusting hemodialysis -continue on BB. Follow-up echo. EF of 50% LVH Hypertension -Resume patient's home dose of metoprolol 50 mg twice a day -Continue to monitor BP and adjust treatment accordingly -Clonidine prn with parameters COPD, not in acute exacerbation ?Chronic respiratory insufficiency -Patient does not use oxygen at home -O2 sats 88% on RA. Currently requires supplemental oxygen to maintain appropriate O2 saturations. Repeat chest x-ray as above -Patient status post respiratory home oxygen walk test which he completed, recommendations were that the patient needs home O2. Hx of prostate cancer -Outpatient follow-up Chronic N/V -Patient reports extensive negative workup as an outpatient -Resume patient on previous dose of PPI and Carafate DVT prophylaxis -Patient is ambulatory on the unit. Heparin No change to anterior assessment awaiting for placement Discharge Planning Patient medically cleared for discharge but no accepting facility. CM working on Placement. Neno Al MD Aug 10, 2017 10:21
[2017-08-10] MEDS: RESP: ALBUTEROL 0.63 MG/3 ML NEB (PRN) NEB (12:02)
--- NOTE | 2017-08-10 13:34 | HHI.NPPN ---
Subjective History of Present Illness Patient is 71-year-old homeless male ESRD who was [facility] now transferred to medical floor Additional Remarks Patient is alert and oriented. Complains of nausea. (Carmelita Huerta) Review of Systems Gastrointestinal GI Remarks nausea (Carmelita Huerta) Objective Data Data Vital Signs Date Time Temp Pulse Resp B/P (MAP) Pulse Ox O2 Delivery O2 Flow Rate FiO2 08/10/17 12:05 92 Nasal Cannula 4.00 08/10/17 12:00 97.6 57 16 129/69 (89) 99 08/10/17 08:00 97.8 82 20 129/66 (87) 91 08/10/17 03:23 97.4 78 18 111/68 (82) 92 08/09/17 23:06 98.4 83 18 123/70 (87) 93 08/09/17 21:42 16 08/09/17 20:26 94 Nasal Cannula 4.00 08/09/17 19:30 98.6 80 18 111/71 (84) 94 08/09/17 16:00 98.1 80 20 131/79 (96) 100 (Carmelita Heurta) Physical Exam General Appearance: Well Developed, No Acute Distress (Carmelita Huerta) Neck Neck Exam: Neck Supple (Carmelita Huerta) Pulmonary Resp Exam: Breath Sounds Equal, Rhonchi, Sputum, Decreased Bases (Carmelita Huerta) Cardiology CV Exam: Arrhythmia (Carmelita Huerta) Gastrointestinal/Abdomen GI Exam: Soft, Non-Tender, Bowel Sounds Present (Carmelita Huerta) Extremeties Extremities Exam: Trace Edema (Carmelita Huerta) Neurologic Neuro Exam: Alert, Awake (Carmelita Huerta) Assessment/Plan Problem List: (1) ESRD (end stage renal disease) on dialysis ICD Codes: N18.6 - End stage renal disease; Z99.2 - Dependence on renal dialysis Plan: hemodialysis to continue Saturday, Saturday and Saturday Patient needs social services assistant help as he is homeless History of A. fib. HD to continue MWF. he will need placement Complaining of itching use Eucerin cream, Atarax, HD yesterday for UF 3 L (2) Hypertension ICD Codes: I10 - Essential (primary) hypertension Plan: Continue to monitor blood pressure (3) Adjustment disorder with depressed mood ICD Codes: F43.21 - Adjustment disorder with depressed mood Plan: Patient recently released by psychiatric (4) COPD (chronic obstructive pulmonary disease) ICD Codes: J44.9 - Chronic obstructive pulmonary disease, unspecified Plan: Continue to monitor (Carmelita Huerta) Problem List: (1) ESRD (end stage renal disease) on dialysis ICD Codes: N18.6 - End stage renal disease; Z99.2 - Dependence on renal dialysis Plan: hemodialysis to continue Saturday, Saturday and Saturday Patient needs social services assistant help as he is homeless History of A. fib. HD to continue MWF. he will need placement Complaining of itching use Eucerin cream, Atarax, HD yesterday for UF 3 L Patient seen and examined, agree with above. Awaiting placement and out patient HD. (2) Hypertension ICD Codes: I10 - Essential (primary) hypertension Plan: Continue to monitor blood pressure (3) Adjustment disorder with depressed mood ICD Codes: F43.21 - Adjustment disorder with depressed mood Plan: Patient recently released by psychiatric (4) COPD (chronic obstructive pulmonary disease) ICD Codes: J44.9 - Chronic obstructive pulmonary disease, unspecified Plan: Continue to monitor (Danni Dahl MD) Problem Qualifiers (1) Hypertension: Qualified Codes: I10 - Essential (primary) hypertension Carmelita Huerta Aug 10, 2017 13:34 Danni Dahl MD Aug 11, 2017 14:35
[2017-08-10] MEDS: diphenhydrAMINE HCL 25 MG CAP PO PRN (16:03)
[2017-08-10] MEDS: QUEtiapine FUMARATE 25 MG TAB PO SCH (20:54)
[2017-08-11] VITALS (9 sets, daily range): BP systolic 103–136; BP diastolic 63–95; PULSE 80–96; RESP 19–20; TEMP 97.2–98.6; O2SAT 77–96
[2017-08-11] MEDS: diphenhydrAMINE HCL 25 MG CAP PO PRN ×3 (00:20→22:06)
[2017-08-11] MEDS: LORazepam 1 MG TAB PO PRN ×2 (01:27→23:59)
[2017-08-11] MEDS: RESP: ALBUTEROL 0.63 MG/3 ML NEB (PRN) NEB ×3 (03:32→23:22)
[2017-08-11] MEDS: hydrOXYzine HCL 25 MG TAB PO SCH ×3 (05:02→21:11)
[2017-08-11] MEDS: DOCUSATE SODIUM 50 MG/SENNA 8.6 MG TAB PO SCH ×2 (08:34→21:11)
[2017-08-11] MEDS: SERTRALINE HCL 50 MG TAB PO SCH (08:34)
[2017-08-11] MEDS: SEVELAMER CARBONATE 800 MG TAB PO SCH ×3 (08:34→16:46)
[2017-08-11] MEDS: guaiFENesin E.R. 600 MG TAB PO SCH ×2 (08:34→21:11)
[2017-08-11] MEDS: SUCRALFATE 1 GM TAB PO SCH ×4 (08:34→21:11)
[2017-08-11] MEDS: ASPIRIN 81 MG CHEW TAB CHEW SCH (08:35)
[2017-08-11] MEDS: METOPROLOL TARTRATE 50 MG TAB PO SCH ×2 (08:35→21:11)
[2017-08-11] MEDS: PANTOPRAZOLE SOD 40 MG DELAYED RELEASE TAB PO SCH (08:35)
[2017-08-11] MEDS: SODIUM CHLORIDE 0.9% FLUSH 10 ML FLUSH IV FLUSH SCH ×2 (08:36→21:12)
--- NOTE | 2017-08-11 08:56 | HHI.PR ---
Subjective Remarks Seen in his bedroom, as we know he is a 71 y/o Male with ESRD on Hemodialysis on M,W and F, awaiting for placement no nausea, vomit or diarrhea but in the afternoon fell he had some pain on left knee and left shoulder that is improving, did not hit his head. Objective Vital Signs Date Time Temp Pulse Resp B/P (MAP) Pulse Ox O2 Delivery O2 Flow Rate FiO2 08/11/17 07:00 Nasal Cannula 4.00 08/11/17 04:00 97.9 90 20 135/79 (97) 94 08/11/17 04:00 Nasal Cannula 4.00 08/11/17 00:41 97.2 80 20 103/63 (76) 92 08/11/17 00:30 77 08/11/17 00:30 92 Nasal Cannula 4.00 08/11/17 00:15 77 Room Air 08/11/17 00:14 Nasal Cannula 4.00 Humidified 08/11/17 00:00 08/10/17 20:34 94 Nasal Cannula 4.00 08/10/17 20:00 Nasal Cannula 4.00 Humidified 08/10/17 19:00 97.8 90 20 130/78 (95) 90 08/10/17 18:55 90 20 134/79 (97) 92 08/10/17 18:40 98.1 90 18 142/81 (101) 92 08/10/17 18:40 90 20 142/81 (101) 08/10/17 18:32 92 Nasal Cannula 5.00 08/10/17 18:25 94 20 146/84 (104) 92 08/10/17 18:24 97.7 90 20 129/79 (96) 92 08/10/17 18:10 92 21 129/79 (96) 08/10/17 18:09 97.5 87 20 144/78 (100) 89 08/10/17 12:05 92 Nasal Cannula 4.00 08/10/17 12:00 97.6 57 16 129/69 (89) 99 I/O 08/10/17 08/10/17 08/10/17 08/11/17 08/11/17 08/11/17 06:59 14:59 22:59 06:59 14:59 22:59 Intake Total 480 ml Output Total 0 ml Balance 480 ml Intake Oral 480 ml Output Urine Total 0 ml # Bowel Movements 1 1 Imaging Last Impressions Chest X-Ray 07/20/17 0000 Signed Impressions: Service Date/Time: Thursday, July 20, 2017 16:18 - CONCLUSION: Interstitial edema suspected. Kalen Baeza MD Procedures None Other Results Laboratory Tests Test 07/18/17 07:30 07/25/17 07:45 07/27/17 13:58 08/05/17 13:52 Hematology Comments Blood Urea Nitrogen 43 MG/DL 52 MG/DL Creatinine 9.28 MG/DL 7.49 MG/DL Random Glucose 88 MG/DL 114 MG/DL Calcium Level 9.3 MG/DL 9.4 MG/DL Magnesium Level 2.2 MG/DL Sodium Level 139 MEQ/L 138 MEQ/L Potassium Level 4.5 MEQ/L 3.9 MEQ/L Chloride Level 100 MEQ/L 97 MEQ/L Carbon Dioxide Level 31.0 MEQ/L 30.9 MEQ/L Neutrophils (%) (Auto) 74.5 % Lymphocytes (%) (Auto) 10.7 % Monocytes (%) (Auto) 8.9 % Eosinophils (%) (Auto) 5.0 % Basophils (%) (Auto) 0.9 % Neutrophils # (Auto) 6.9 TH/MM3 Lymphocytes # (Auto) 1.0 TH/MM3 Monocytes # (Auto) 0.8 TH/MM3 Eosinophils # (Auto) 0.5 TH/MM3 Basophils # (Auto) 0.1 TH/MM3 CBC Comment DIFF FINAL Differential Comment White Blood Count 7.9 TH/MM3 Red Blood Count 4.20 MIL/MM3 Hemoglobin 11.3 GM/DL Hematocrit 34.2 % Mean Corpuscular Volume 81.5 FL Mean Corpuscular Hemoglobin 27.0 PG Mean Corpuscular Hemoglobin Concent 33.1 % Red Cell Distribution Width 18.8 % Platelet Count 349 TH/MM3 Mean Platelet Volume 7.9 FL Anion Gap 10 MEQ/L Estimat Glomerular Filtration Rate 9 ML/MIN Objective Remarks GENERAL: No acute distress. CARDIOVASCULAR: Normal rate and regular rhythm without murmurs, gallops, or rubs. RESPIRATORY: Good respiratory efforts. Breath sounds equal and clear to auscultation bilaterally. GASTROINTESTINAL: Abdomen soft, non-tender, non-distended. Normal active bowel sounds PSYCH: Calm Medications and IVs Current Medications Medications (Trade) Dose Ordered Sig/Leandro Route Start Time Stop Time Status Last Admin (NS Flush) 2 ml UNSCH PRN IV FLUSH 07/16/17 23:45 (NS Flush) 2 ml BID IV FLUSH 07/17/17 09:00 08/11/17 08:36 (Tylenol) 650 mg Q4H PRN PO 07/16/17 23:45 08/05/17 18:33 (Zofran Inj) 4 mg Q6H PRN IVP 07/16/17 23:45 08/07/17 17:37 (Heparin Inj) 5,000 units Q12H SQ 07/17/17 09:00 08/10/17 20:54 (Narcan Inj) 0.4 mg UNSCH PRN IV PUSH 07/16/17 23:45 (Faith-Colace) 1 tab BID PO 07/17/17 09:00 08/11/17 08:34 (Milk Of Magnesia Liq) 30 ml Q12H PRN PO 07/16/17 23:45 (Senokot) 17.2 mg Q12H PRN PO 07/16/17 23:45 (Dulcolax Supp) 10 mg DAILY PRN RECTAL 07/16/17 23:45 (Lactulose Liq) 30 ml DAILY PRN PO 07/16/17 23:45 (Aspirin Chew) 81 mg DAILY CHEW 07/17/17 09:00 08/11/17 08:35 (Lopressor) 50 mg BID PO 07/17/17 09:00 08/11/17 08:35 Sodium Chloride 1,000 ml @ 0 mls/hr Q0M PRN OTHER 07/17/17 00:02 (Heparin Inj) 8,000 units UNSCH PRN IV FLUSH 07/17/17 00:15 08/07/17 14:19 Sodium Chloride 1,000 ml @ 200 mls/hr Q5H PRN IV 07/17/17 00:02 Sodium Chloride 1,000 ml @ 0 mls/hr Q0M PRN OTHER 07/17/17 00:02 (Mannitol Inj) 12.5 gm UNSCH PRN IV 07/17/17 00:15 Albumin Human 100 ml @ 60 mls/hr UNSCH PRN IV 07/17/17 00:15 07/24/17 11:23 (NS Flush) 5 ml UNSCH PRN IV FLUSH 07/17/17 00:15 (Heparin Inj) UNSCH PRN .XX 07/17/17 00:15 08/09/17 09:27 (Gentamicin Inj) 20 mg UNSCH PRN OTHER 07/17/17 00:15 08/09/17 09:27 (Zofran Inj) 4 mg UNSCH PRN IV PUSH 07/17/17 00:15 07/26/17 15:34 (Tylenol) 650 mg UNSCH PRN PO 07/17/17 00:15 08/09/17 20:42 (Benadryl) 25 mg UNSCH PRN PO 07/17/17 00:15 08/09/17 08:11 (Nitrostat Sl) 0.4 mg UNSCH PRN SL 07/17/17 00:15 (Catapres) 0.1 mg UNSCH PRN PO 07/17/17 00:15 (Gelfoam 12 Mm/7 Mm Top) 1 foam UNSCH PRN TOP 07/17/17 00:15 (Rocaltrol) 1 mcg MoWeFr PO 07/19/17 15:00 08/09/17 16:13 (Protonix) 40 mg DAILY PO 07/19/17 09:00 08/11/17 08:35 (Ativan) 1 mg HS PRN PO 07/18/17 18:15 08/11/17 01:27 (SEROquel) 25 mg HS PO 07/18/17 21:00 08/10/17 20:54 (Zoloft) 50 mg DAILY PO 07/19/17 09:00 08/11/17 08:34 (Carafate) 1 gm ACHS PO 07/18/17 21:00 08/11/17 08:34 (Caladryl Lotion) 1 applic Q12HR PRN TOPICAL 07/18/17 21:00 08/04/17 01:21 (Albuterol Neb) 0.63 mg Q4HR NEB PRN NEB 07/19/17 16:30 08/11/17 03:32 (Mucinex Er) 600 mg BID PO 07/20/17 11:30 08/11/17 08:34 (Tessalon) 200 mg Q8H PRN PO 07/20/17 17:15 08/10/17 09:54 (Benadryl) 25 mg Q6H PRN PO 07/20/17 17:15 08/11/17 08:34 (Robitussin Ac 200-20 Mg/10 ml Liq) 10 ml Q4H PRN PO 07/21/17 12:30 08/09/17 20:42 (Ativan Inj) 1 mg Q6H PRN IV PUSH 07/22/17 13:00 08/09/17 08:07 (Renvela) 1,600 mg TIDAC PO 08/09/17 17:00 08/11/17 08:34 (Atarax) 25 mg Q8HR PO 08/09/17 17:00 08/11/17 05:02 (Eucerin Cream) 1 applic Q6H PRN TOPICAL 08/09/17 16:30 A/P Assessment and Plan (1) ESRD (end stage renal disease) on dialysis ICD Code: N18.6 - End stage renal disease; Z99.2 - Dependence on renal dialysis (2) COPD (chronic obstructive pulmonary disease) ICD Code: J44.9 - Chronic obstructive pulmonary disease, unspecified 71-year-old male with past medical history significant for atrial fibrillation with RVR, end-stage renal disease on hemodialysis Saturday, COPD, hypertension, CHF and prostate cancer currently homeless who was brought in under Rodriguez act after patient reportedly refused to comply with critical treatment for dialysis and was transferred to inpatient psychiatry. Patient was treated in the medical psych unit and cleared by psychiatry. Patient was discharged to the medical floor for continued treatment of his hemodialysis, COPD. Depression Dialysis noncompliance -Status post management by psychiatry. Labeled as adjustment disorder with depressed mood. ESRD on HD MWF Missed dialysis appointment -Nephrology consulted. On hemodialysis. -On a Saturday, Saturday, Saturday schedule. -Continue patient on home dose of Renvela Atrial fibrillation with CVR. Intermittent RVR with activity but patient is asymptomatic -Continue on Metoprolol 50mg BID -[id number] score 3, patient on ASA only for anticoagulation. Recommend follow up with criminal investigator customs as an outpatient re novel agent -continue to monitor HR Chronic Congestive Heart failure, low normal systolic heart failure, has Pulmonary Hypertension, not decompensated -recent hospitalization for fluid overload -Abnormal chest x-ray with interstitial edema appears euvolemic at this time , continue to monitor fluid status. Discussed with nephrology to consider adjusting hemodialysis -continue on BB. Follow-up echo. EF of 50-55% LVH Hypertension -Resume patient's home dose of metoprolol 50 mg twice a day -Continue to monitor BP and adjust treatment accordingly -Clonidine prn with parameters COPD, not in acute exacerbation Chronic respiratory insufficiency -Patient does not use oxygen at home -O2 sats 88% on RA. Currently requires supplemental oxygen to maintain appropriate O2 saturations. Repeat chest x-ray as above -Patient status post respiratory home oxygen walk test which he completed, recommendations were that the patient needs home O2. Hx of prostate cancer -Outpatient follow-up Chronic N/V -Patient reports extensive negative workup as an outpatient -Resume patient on previous dose of PPI and Carafate Status post fall today no need for x rays on exam no elicited pain on palpation , he states has generalized pain at this time. DVT prophylaxis -Patient is ambulatory on the unit. Heparin No change to anterior assessment awaiting for placement Discharge Planning Patient medically cleared for discharge but no accepting facility. CM working on Placement. Neno Al MD Aug 11, 2017 08:56
[2017-08-11] MEDS: HEPARIN SODIUM - SQ 10,000 UNITS/ML VIAL SQ SCH ×2 (09:00→21:00)
--- NOTE | 2017-08-11 11:19 | HHI.NPPN ---
Subjective Renal Failure: End Stage Renal Disease History of Present Illness Patient is 71-year-old homeless male ESRD who was Rodriguez acted now transferred to medical floor Additional Remarks Patient is alert and oriented. Denies any shortness of breath. No edema. Dialysis planned for tomorrow. (Carmelita Huerta) Review of Systems Gastrointestinal GI Remarks nausea (Carmelita Hureta) Objective Data Data Vital Signs Date Time Temp Pulse Resp B/P (MAP) Pulse Ox O2 Delivery O2 Flow Rate FiO2 08/11/17 08:00 98.0 80 20 135/82 (99) 92 08/11/17 07:00 Nasal Cannula 4.00 08/11/17 04:00 97.9 90 20 135/79 (97) 94 08/11/17 04:00 Nasal Cannula 4.00 08/11/17 00:41 97.2 80 20 103/63 (76) 92 08/11/17 00:30 77 08/11/17 00:30 92 Nasal Cannula 4.00 08/11/17 00:15 77 Room Air 08/11/17 00:14 Nasal Cannula 4.00 Humidified 08/11/17 00:00 08/10/17 20:34 94 Nasal Cannula 4.00 08/10/17 20:00 Nasal Cannula 4.00 Humidified 08/10/17 19:00 97.8 90 20 130/78 (95) 90 08/10/17 18:55 90 20 134/79 (97) 92 08/10/17 18:40 98.1 90 18 142/81 (101) 92 08/10/17 18:40 90 20 142/81 (101) 08/10/17 18:32 92 Nasal Cannula 5.00 08/10/17 18:25 94 20 146/84 (104) 92 08/10/17 18:24 97.7 90 20 129/79 (96) 92 08/10/17 18:10 92 21 129/79 (96) 08/10/17 18:09 97.5 87 20 144/78 (100) 89 08/10/17 12:05 92 Nasal Cannula 4.00 08/10/17 12:00 97.6 57 16 129/69 (89) 99 (Carmelita Huerta) Physical Exam General Appearance: Well Developed, No Acute Distress (Carmelita Huerta) Neck Neck Exam: Neck Supple (Carmelita Huerta) Pulmonary Resp Exam: Breath Sounds Equal, Rhonchi, Sputum, Decreased Bases (Carmelita Huerta) Cardiology CV Exam: Arrhythmia (Carmelita Huerta) Gastrointestinal/Abdomen GI Exam: Soft, Non-Tender, Bowel Sounds Present (Carmelita Huerta) Extremeties Extremities Exam: Trace Edema (Carmelita Huerta) Neurologic Neuro Exam: Alert, Awake (Carmelita Huerta) Assessment/Plan Problem List: (1) ESRD (end stage renal disease) on dialysis ICD Codes: N18.6 - End stage renal disease; Z99.2 - Dependence on renal dialysis Plan: hemodialysis to continue Saturday, Saturday and Saturday Patient needs social organization professor help as he is homeless History of A. fib. HD to continue MWF. he will need placement Complaining of itching use Eucerin cream, Atarax, Continue Renvela for metabolic bone disorder HD planned for tomorrow Labs in am (2) Hypertension ICD Codes: I10 - Essential (primary) hypertension Plan: Continue to monitor blood pressure (3) Adjustment disorder with depressed mood ICD Codes: F43.21 - Adjustment disorder with depressed mood Plan: Patient recently released by psychiatric (4) COPD (chronic obstructive pulmonary disease) ICD Codes: J44.9 - Chronic obstructive pulmonary disease, unspecified Plan: Continue to monitor (Carmelita Huerta) Problem List: (1) ESRD (end stage renal disease) on dialysis ICD Codes: N18.6 - End stage renal disease; Z99.2 - Dependence on renal dialysis Plan: hemodialysis to continue Saturday, Saturday and Saturday Patient needs social organization professor help as he is homeless History of A. fib. HD to continue MWF. he will need placement Complaining of itching use Eucerin cream, Atarax, Continue Renvela for metabolic bone disorder HD planned for tomorrow Labs in am. Patient seen and examined, agree with above. Awaiting placement. (2) Hypertension ICD Codes: I10 - Essential (primary) hypertension Plan: Continue to monitor blood pressure (3) Adjustment disorder with depressed mood ICD Codes: F43.21 - Adjustment disorder with depressed mood Plan: Patient recently released by psychiatric (4) COPD (chronic obstructive pulmonary disease) ICD Codes: J44.9 - Chronic obstructive pulmonary disease, unspecified Plan: Continue to monitor (Danni Dahl MD) Problem Qualifiers (1) Hypertension: Qualified Codes: I10 - Essential (primary) hypertension Carmelita Huerta Aug 11, 2017 11:19 Danni Dahl MD Aug 11, 2017 14:56
[2017-08-11] MEDS: QUEtiapine FUMARATE 25 MG TAB PO SCH (21:11)
[2017-08-12 00:40] VITALS: BP 128/89; PULSE 88; RESP 20; TEMP 98.1; O2SAT 93
[2017-08-12] MEDS: guaiFENesin/CODEINE SYRUP 200 MG/20 MG/10 ML CUP PO PRN ×2 (01:02→09:58)
[2017-08-12] MEDS: ONDANSETRON HCL 4 MG/2 ML VIAL IVP PRN (02:22)
[2017-08-12 04:56] VITALS: BP 137/80; PULSE 94; RESP 20; TEMP 98; O2SAT 92
[2017-08-12] MEDS: hydrOXYzine HCL 25 MG TAB PO SCH ×3 (04:58→22:53)
[2017-08-12 05:02] LABS: AUTOMATED NEUTROPHIL # 6.1 TH/MM3 (1.8-7.7); BASOPHIL # 0.1 TH/MM3 (0-0.2); BASOPHIL % 1.1 % (0.0-2.0); EOSINOPHIL # 0.4 TH/MM3 (0-0.4); EOSINOPHIL % 4.9 % (0.0-4.0); HEMATOCRIT 30.4 % (39.0-51.0); LYMPH % 15.4 % (9.0-44.0); LYMPHOCYTE # 1.4 TH/MM3 (1.0-4.8); MEAN CORPUSCULAR HEMOGLOBIN 26.5 PG (27.0-34.0); MEAN CORPUSCULAR HGB CONC 32.7 % (32.0-36.0); MEAN PLATELET VOLUME 7.8 FL (7.0-11.0); MONO % 9.8 % (0.0-8.0); MONOCYTE # 0.9 TH/MM3 (0-0.9); NEUT % 68.8 % (16.0-70.0); PLATELET COUNT 209 TH/MM3 (150-450); RED BLOOD COUNT 3.75 MIL/MM3 (4.50-5.90); RED CELL DISTRIBUTION WIDTH 19.4 % (11.6-17.2); WHITE BLOOD COUNT 8.9 TH/MM3 (4.0-11.0)
[2017-08-12 05:28] LABS: ALBUMIN 3.6 GM/DL (3.4-5.0); BICARBONATE 25.3 MEQ/L (21.0-32.0); CALCIUM 10.2 MG/DL (8.5-10.1); PHOSPHORUS 4.2 MG/DL (2.5-4.9)
[2017-08-12 05:36] LABS: CREATININE 11.64 MG/DL (0.60-1.30)
[2017-08-12 08:00] VITALS: BP 135/88; PULSE 86; RESP 20; TEMP 98.2; O2SAT 93
[2017-08-12] MEDS: DOCUSATE SODIUM 50 MG/SENNA 8.6 MG TAB PO SCH ×2 (09:00→21:00)
[2017-08-12] MEDS: SEVELAMER CARBONATE 800 MG TAB PO SCH ×3 (09:57→17:00)
[2017-08-12] MEDS: SUCRALFATE 1 GM TAB PO SCH ×4 (09:57→22:52)
[2017-08-12] MEDS: ASPIRIN 81 MG CHEW TAB CHEW SCH (09:57)
[2017-08-12] MEDS: guaiFENesin E.R. 600 MG TAB PO SCH ×2 (09:57→22:52)
[2017-08-12] MEDS: HEPARIN SODIUM - SQ 10,000 UNITS/ML VIAL SQ SCH ×2 (09:58→21:00)
[2017-08-12] MEDS: SERTRALINE HCL 50 MG TAB PO SCH (09:58)
[2017-08-12] MEDS: METOPROLOL TARTRATE 50 MG TAB PO SCH ×2 (09:58→22:52)
[2017-08-12] MEDS: PANTOPRAZOLE SOD 40 MG DELAYED RELEASE TAB PO SCH (09:58)
[2017-08-12] MEDS: SODIUM CHLORIDE 0.9% FLUSH 10 ML FLUSH IV FLUSH SCH ×2 (09:59→22:52)
[2017-08-12 12:00] VITALS: BP 127/69; PULSE 84; RESP 20; TEMP 98.1; O2SAT 90
--- NOTE | 2017-08-12 12:12 | HHI.PR ---
Subjective Remarks Stable in his bedroom, seen in the presence of nurse, continue Hemodialysis on Saturday, Saturday and Saturday, has HD today awaiting for placement, today complaint of headache after fall yesterday but no trauma evident no nausea, vomit or diarrhea. Objective Vital Signs Date Time Temp Pulse Resp B/P (MAP) Pulse Ox O2 Delivery O2 Flow Rate FiO2 08/12/17 08:00 98.2 86 20 135/88 (104) 93 08/12/17 08:00 Nasal Cannula 4.00 92 08/12/17 05:07 Nasal Cannula 4.00 92 08/12/17 04:56 98.0 94 20 137/80 (99) 92 08/12/17 04:55 Nasal Cannula 4.00 08/12/17 04:54 Room Air 72 08/12/17 00:40 98.1 88 20 128/89 (102) 93 08/11/17 23:27 94 Nasal Cannula 4.00 08/11/17 20:00 97.7 93 19 135/95 (108) 93 08/11/17 20:00 Room Air 72 08/11/17 16:00 98.3 96 20 121/66 (84) 92 08/11/17 12:17 91 Nasal Cannula 4.00 I/O 08/11/17 08/11/17 08/11/17 08/12/17 08/12/17 08/12/17 07:00 15:00 23:00 07:00 15:00 23:00 Intake Total 480 ml 300 ml Output Total 0 ml Balance 480 ml 300 ml Intake Oral 480 ml 300 ml Output Urine Total 0 ml # Voids 0 # Bowel Movements 1 0 0 Result Diagram: 08/12/17 0350 08/12/17 0350 Imaging Last Impressions Chest X-Ray 07/20/17 0000 Signed Impressions: Service Date/Time: Thursday, July 20, 2017 16:18 - CONCLUSION: Interstitial edema suspected. Kalen Baeza MD Procedures None Other Results Laboratory Tests Test 07/18/17 07:30 07/25/17 07:45 08/12/17 03:50 Hematology Comments Blood Urea Nitrogen 43 MG/DL 82 MG/DL Creatinine 9.28 MG/DL 11.64 MG/DL Random Glucose 88 MG/DL 88 MG/DL Calcium Level 9.3 MG/DL 10.2 MG/DL Magnesium Level 2.2 MG/DL Sodium Level 139 MEQ/L 136 MEQ/L Potassium Level 4.5 MEQ/L 4.8 MEQ/L Chloride Level 100 MEQ/L 96 MEQ/L Carbon Dioxide Level 31.0 MEQ/L 25.3 MEQ/L White Blood Count 8.9 TH/MM3 Red Blood Count 3.75 MIL/MM3 Hemoglobin 10.0 GM/DL Hematocrit 30.4 % Mean Corpuscular Volume 81.0 FL Mean Corpuscular Hemoglobin 26.5 PG Mean Corpuscular Hemoglobin Concent 32.7 % Red Cell Distribution Width 19.4 % Platelet Count 209 TH/MM3 Mean Platelet Volume 7.8 FL Neutrophils (%) (Auto) 68.8 % Lymphocytes (%) (Auto) 15.4 % Monocytes (%) (Auto) 9.8 % Eosinophils (%) (Auto) 4.9 % Basophils (%) (Auto) 1.1 % Neutrophils # (Auto) 6.1 TH/MM3 Lymphocytes # (Auto) 1.4 TH/MM3 Monocytes # (Auto) 0.9 TH/MM3 Eosinophils # (Auto) 0.4 TH/MM3 Basophils # (Auto) 0.1 TH/MM3 CBC Comment DIFF FINAL Differential Comment Albumin 3.6 GM/DL Phosphorus Level 4.2 MG/DL Anion Gap 15 MEQ/L Estimat Glomerular Filtration Rate 5 ML/MIN Objective Remarks GENERAL: No acute distress. CARDIOVASCULAR: Normal rate and regular rhythm without murmurs, gallops, or rubs. RESPIRATORY: Good respiratory efforts. Breath sounds equal and clear to auscultation bilaterally. GASTROINTESTINAL: Abdomen soft, non-tender, non-distended. Normal active bowel sounds PSYCH: Calm Medications and IVs Current Medications Medications (Trade) Dose Ordered Sig/Leandro Route Start Time Stop Time Status Last Admin (NS Flush) 2 ml UNSCH PRN IV FLUSH 07/16/17 23:45 (NS Flush) 2 ml BID IV FLUSH 07/17/17 09:00 08/12/17 09:59 (Tylenol) 650 mg Q4H PRN PO 07/16/17 23:45 08/05/17 18:33 (Zofran Inj) 4 mg Q6H PRN IVP 07/16/17 23:45 08/12/17 02:22 (Heparin Inj) 5,000 units Q12H SQ 07/17/17 09:00 08/12/17 09:58 (Narcan Inj) 0.4 mg UNSCH PRN IV PUSH 07/16/17 23:45 (Faith-Colace) 1 tab BID PO 07/17/17 09:00 08/11/17 21:11 (Milk Of Magnesia Liq) 30 ml Q12H PRN PO 07/16/17 23:45 (Senokot) 17.2 mg Q12H PRN PO 07/16/17 23:45 (Dulcolax Supp) 10 mg DAILY PRN RECTAL 07/16/17 23:45 (Lactulose Liq) 30 ml DAILY PRN PO 07/16/17 23:45 (Aspirin Chew) 81 mg DAILY CHEW 07/17/17 09:00 08/12/17 09:57 (Lopressor) 50 mg BID PO 07/17/17 09:00 08/12/17 09:58 Sodium Chloride 1,000 ml @ 0 mls/hr Q0M PRN OTHER 07/17/17 00:02 (Heparin Inj) 8,000 units UNSCH PRN IV FLUSH 07/17/17 00:15 08/07/17 14:19 Sodium Chloride 1,000 ml @ 200 mls/hr Q5H PRN IV 07/17/17 00:02 Sodium Chloride 1,000 ml @ 0 mls/hr Q0M PRN OTHER 07/17/17 00:02 (Mannitol Inj) 12.5 gm UNSCH PRN IV 07/17/17 00:15 Albumin Human 100 ml @ 60 mls/hr UNSCH PRN IV 07/17/17 00:15 07/24/17 11:23 (NS Flush) 5 ml UNSCH PRN IV FLUSH 07/17/17 00:15 (Heparin Inj) UNSCH PRN .XX 07/17/17 00:15 08/09/17 09:27 (Gentamicin Inj) 20 mg UNSCH PRN OTHER 07/17/17 00:15 08/09/17 09:27 (Zofran Inj) 4 mg UNSCH PRN IV PUSH 07/17/17 00:15 07/26/17 15:34 (Tylenol) 650 mg UNSCH PRN PO 07/17/17 00:15 08/09/17 20:42 (Benadryl) 25 mg UNSCH PRN PO 07/17/17 00:15 08/09/17 08:11 (Nitrostat Sl) 0.4 mg UNSCH PRN SL 07/17/17 00:15 (Catapres) 0.1 mg UNSCH PRN PO 07/17/17 00:15 (Gelfoam 12 Mm/7 Mm Top) 1 foam UNSCH PRN TOP 07/17/17 00:15 (Rocaltrol) 1 mcg MoWeFr PO 07/19/17 15:00 08/09/17 16:13 (Protonix) 40 mg DAILY PO 07/19/17 09:00 08/12/17 09:58 (Ativan) 1 mg HS PRN PO 07/18/17 18:15 08/11/17 23:59 (SEROquel) 25 mg HS PO 07/18/17 21:00 08/11/17 21:11 (Zoloft) 50 mg DAILY PO 07/19/17 09:00 08/12/17 09:58 (Carafate) 1 gm ACHS PO 07/18/17 21:00 08/12/17 09:57 (Caladryl Lotion) 1 applic Q12HR PRN TOPICAL 07/18/17 21:00 08/04/17 01:21 (Albuterol Neb) 0.63 mg Q4HR NEB PRN NEB 07/19/17 16:30 08/11/17 23:22 (Mucinex Er) 600 mg BID PO 07/20/17 11:30 08/12/17 09:57 (Tessalon) 200 mg Q8H PRN PO 07/20/17 17:15 08/10/17 09:54 (Benadryl) 25 mg Q6H PRN PO 07/20/17 17:15 08/11/17 22:06 (Robitussin Ac 200-20 Mg/10 ml Liq) 10 ml Q4H PRN PO 07/21/17 12:30 08/12/17 09:58 (Ativan Inj) 1 mg Q6H PRN IV PUSH 07/22/17 13:00 08/09/17 08:07 (Renvela) 1,600 mg TIDAC PO 08/09/17 17:00 08/12/17 09:57 (Atarax) 25 mg Q8HR PO 08/09/17 17:00 08/12/17 04:58 (Eucerin Cream) 1 applic Q6H PRN TOPICAL 08/09/17 16:30 A/P Assessment and Plan (1) ESRD (end stage renal disease) on dialysis ICD Code: N18.6 - End stage renal disease; Z99.2 - Dependence on renal dialysis (2) COPD (chronic obstructive pulmonary disease) ICD Code: J44.9 - Chronic obstructive pulmonary disease, unspecified 71-year-old male with past medical history significant for atrial fibrillation with RVR, end-stage renal disease on hemodialysis Saturday, COPD, hypertension, CHF and prostate cancer currently homeless who was brought in under Rodriguez act after patient reportedly refused to comply with critical treatment for dialysis and was transferred to inpatient psychiatry. Patient was treated in the medical psych unit and cleared by psychiatry. Patient was discharged to the medical floor for continued treatment of his hemodialysis, COPD. Depression Dialysis noncompliance -Status post management by psychiatry. Labeled as adjustment disorder with depressed mood. ESRD on HD MWF Missed dialysis appointment -Nephrology consulted. On hemodialysis. -On a Saturday, Saturday, Saturday schedule. -Continue patient on home dose of Renvela Atrial fibrillation with CVR. Intermittent RVR with activity but patient is asymptomatic -Continue on Metoprolol 50mg BID -[id number] score 3, patient on ASA only for anticoagulation. Recommend follow up with slitting machine operator as an outpatient re novel agent -controlled rate at this time. Chronic Congestive Heart failure, low normal systolic heart failure, has Pulmonary Hypertension, not decompensated -recent hospitalization for fluid overload -Abnormal chest x-ray with interstitial edema appears euvolemic at this time , continue to monitor fluid status. Discussed with nephrology to consider adjusting hemodialysis -continue on BB. Follow-up echo. EF of 50-55% LVH Hypertension -Resume patient's home dose of metoprolol 50 mg twice a day -Continue to monitor BP and adjust treatment accordingly -Clonidine prn with parameters COPD, not in acute exacerbation Chronic respiratory insufficiency -Patient does not use oxygen at home -O2 sats 88% on RA. Currently requires supplemental oxygen to maintain appropriate O2 saturations. Repeat chest x-ray as above -Patient status post respiratory home oxygen walk test which he completed, recommendations were that the patient needs home O2. Hx of prostate cancer -Outpatient follow-up Chronic N/V -Patient reports extensive negative workup as an outpatient -Resume patient on previous dose of PPI and Carafate Status post fall today no need for x rays on exam no elicited pain on palpation , he states has generalized pain at this time. DVT prophylaxis -Patient is ambulatory on the unit. Heparin No change to anterior assessment awaiting for placement Discharge Planning Patient medically cleared for discharge but no accepting facility. CM working on Placement. Neno Al MD Aug 12, 2017 12:12
[2017-08-12] MEDS: ALBUMIN 25% INJ 100 ML IV PRN ×2 (14:17→15:04)
--- NOTE | 2017-08-12 14:47 | HHI.NPPN ---
Subjective Renal Failure: End Stage Renal Disease History of Present Illness Patient is 71-year-old homeless male ESRD who was Rodriguez acted now transferred to medical floor Additional Remarks Patient is alert and oriented. Denies any shortness of breath. No edema. Dialysis planned for tomorrow. Review of Systems Gastrointestinal GI Remarks nausea Objective Data Data 08/12/17 08/13/17 19:00 07:00 Intake Total 360 ml Balance 360 ml Intake Oral 360 ml # Voids 1 # Bowel Movements 0 Vital Signs Date Time Temp Pulse Resp B/P (MAP) Pulse Ox O2 Delivery O2 Flow Rate FiO2 08/12/17 12:00 98.1 84 20 127/69 (88) 90 08/12/17 08:00 98.2 86 20 135/88 (104) 93 08/12/17 08:00 Nasal Cannula 4.00 92 08/12/17 05:07 Nasal Cannula 4.00 92 08/12/17 04:56 98.0 94 20 137/80 (99) 92 08/12/17 04:55 Nasal Cannula 4.00 08/12/17 04:54 Room Air 72 08/12/17 00:40 98.1 88 20 128/89 (102) 93 08/11/17 23:27 94 Nasal Cannula 4.00 08/11/17 20:00 97.7 93 19 135/95 (108) 93 08/11/17 20:00 Room Air 72 08/11/17 16:00 98.3 96 20 121/66 (84) 92 -: 08/12/17 0350 08/12/17 0350 Physical Exam General Appearance: Well Developed, No Acute Distress Neck Neck Exam: Neck Supple Pulmonary Resp Exam: Breath Sounds Equal, Rhonchi, Sputum, Decreased Bases Cardiology CV Exam: Arrhythmia Gastrointestinal/Abdomen GI Exam: Soft, Non-Tender, Bowel Sounds Present Extremeties Extremities Exam: Trace Edema Neurologic Neuro Exam: Alert, Awake Assessment/Plan Problem List: (1) ESRD (end stage renal disease) on dialysis ICD Codes: N18.6 - End stage renal disease; Z99.2 - Dependence on renal dialysis Plan: hemodialysis to continue Saturday, Saturday and Saturday Patient needs clinical social worker help as he is homeless History of A. fib. HD to continue MWF. he will need placement for itching use Eucerin cream, Atarax, seen at hemodialysis [facility] 3.5 l. sob resp called in on FM O2 doing better hx of fall over weekend (2) Hypertension ICD Codes: I10 - Essential (primary) hypertension Plan: Continue to monitor blood pressure (3) Adjustment disorder with depressed mood ICD Codes: F43.21 - Adjustment disorder with depressed mood Plan: Patient recently released by psychiatric (4) COPD (chronic obstructive pulmonary disease) ICD Codes: J44.9 - Chronic obstructive pulmonary disease, unspecified Plan: Continue to monitor Problem Qualifiers (1) Hypertension: Qualified Codes: I10 - Essential (primary) hypertension Nic Pinto MD Aug 12, 2017 14:47
--- NOTE | 2017-08-12 14:55 | RADRPT ---
EXAM DATE/TIME: 08/12/2017 14:28 [facility] COMPARISON: CHEST SINGLE AP, July 20, 2017, 16:18. INDICATIONS : Shortness of breath. MEDICAL HISTORY : Hypertension. Congestive heart failure. Chronic obstructive pulmonary disease. SURGICAL HISTORY : Dialysis catheter ENCOUNTER: Initial ACUITY: 1 day PAIN SCORE: 0/10 LOCATION: Bilateral chest FINDINGS: A single AP portable erect view of the chest was obtained and again demonstrates the double lumen manuel tral venous line in place. Streaky perihilar and bibasilar opacities again noted without significant change. The heart size remains mildly enlarged. There is no effusion. Atherosclerotic changes are aga in noted in the aorta. The bony thorax is intact. CONCLUSION: Stable appearance with streaky perihilar and bibasilar opacities again noted. Given t he lack of change this likely represents interstitial fibrosis and/or scarring. Rodo Lebron MD on August 12, 2017 at 14:52 Board Certified Radiologist. This report was verified electronically.
[2017-08-12] MEDS: CALCITRIOL 0.25 MCG CAP PO SCH (15:00)
[2017-08-12] MEDS: GENTAMICIN SULFATE 20 MG/2 ML VIAL OTHER PRN (17:15)
[2017-08-12] MEDS: HEPARIN SODIUM - IV 10,000 UNITS/10 ML VIAL PRN (17:15)
[2017-08-12] MEDS: QUEtiapine FUMARATE 25 MG TAB PO SCH (22:52)
[2017-08-12] MEDS: diphenhydrAMINE HCL 25 MG CAP PO PRN (23:57)
--- NOTE | 2017-08-13 02:51 | PD.AMA ---
Against Medical Advice Note Discharge Disposition: Against Medical Advice Pt Condition on Discharge: Deteriorating AMA Statement Patient Antoni Wall Demond Sr has decided to leave the hospital against medical advice. This patient has the capacity to refuse care and understands the risks of leaving, including permanent disability and/or , and has had an opportunity to ask questions about his condition. The patient has been informed that he may return for care at any time, and follow up has been arranged/ advised. Patient verbalized understanding of consequences of leaving AMA. Nilda Mata Aug 13, 2017 02:51
== END 2017-08-13 01:55 | disposition left against medical advice (07) | DRG 683 ==
LOC: N04B 21:34 → HIMN 08-12 18:09
PROVIDERS: ADMIT Internal Medicine; ATTEND Internal Medicine
PROC: 5A1D70Z Performance of Urinary Filtration, Intermittent, Less than 6 Hours Per Day (ICD-10-PCS; principal; 2017-07-17)
DX: N18.6 End stage renal disease (principal); E87.1 Hypo-osmolality and hyponatremia; I13.2 Hypertensive heart and chronic kidney disease with heart failure and with stage 5 chronic kidney disease, or end stage renal disease; R06.89 Other abnormalities of breathing; E88.89 Other specified metabolic disorders; I27.20 Pulmonary hypertension, unspecified; I48.91 Unspecified atrial fibrillation; I50.20 Unspecified systolic (congestive) heart failure; J44.9 Chronic obstructive pulmonary disease, unspecified; R11.2 Nausea with vomiting, unspecified; F31.9 Bipolar disorder, unspecified; F41.9 Anxiety disorder, unspecified; G47.00 Insomnia, unspecified; F43.21 Adjustment disorder with depressed mood; N18.9 Chronic kidney disease, unspecified; R09.02 Hypoxemia; L29.9 Pruritus, unspecified; F41.1 Generalized anxiety disorder; R51 Headache; R52 Pain, unspecified; W19.XXXA Unspecified fall, initial encounter; Z79.899 Other long term (current) drug therapy; Z79.82 Long term (current) use of aspirin; Z91.15 Patient's noncompliance with renal dialysis; Z85.46 Personal history of malignant neoplasm of prostate; Z59.0 Homelessness; Z99.2 Dependence on renal dialysis; Z87.891 Personal history of nicotine dependence
CPT/HCPCS: 71045; 76937; 80048; 80069; 82805; 83735; 85025; 85027; 90935; 93306; 94640; 94664; 96374; 96375; J1580; J1644; J2060; J2405; J7613; P9047